=== PATIENT | male | born 1950 | race Caucasian/White ===

== ENCOUNTER 2016-08-23 10:20 | Outpatient (RCR) | payer MEDICARE, OTHER ==
[2016-08-16 11:15] LABS: BASOPHILS % (AUTO) 0 % (0-10); EOSINOPHILS # (AUTO) 0.1 10^3/uL (0.0-0.3); EOSINOPHILS % (AUTO) 2 % (0-10); LYMPHOCYTES % (AUTO) 34 % (12-44); MEAN CORPUSCULAR HEMOGLOBIN 29 PG (25-34); MEAN CORPUSCULAR HGB CONC 35 G/DL (32-36); MEAN CORPUSCULAR VOLUME 83 FL (80-99); MEAN PLATELET VOLUME 10.8 FL (7.4-10.4); MONOCYTES # (AUTO) 0.5 X 10^3 (0.0-1.0); MONOCYTES % (AUTO) 9 % (0-12); NEUTROPHILS # (AUTO) 3.1 X 10^3 (1.8-7.8); NEUTROPHILS % (AUTO) 55 % (42-75); PLATELET COUNT 173 10^3/uL (130-400); RED BLOOD COUNT 4.59 10^6/uL (4.35-5.85); RED CELL DISTRIBUTION WIDTH 13.5 % (10.0-14.5); WHITE BLOOD COUNT 5.7 10^3/uL (4.3-11.0)
[2016-08-16 12:01] LABS: ALANINE AMINOTRANSFERASE 31 U/L (0-55); ALBUMIN 4.2 G/DL (3.2-4.5); ANION GAP 8 MMOL/L (5-14); ASPARTATE AMINO TRANSFERASE 20 U/L (5-34); BILIRUBIN,TOTAL 0.9 MG/DL (0.1-1.0); BLOOD UREA NITROGEN 14 MG/DL (7-18); BUN/CREATININE RATIO 13; CALCIUM 9.3 MG/DL (8.5-10.1); CARBON DIOXIDE 27 MMOL/L (21-32); CHLORIDE 105 MMOL/L (98-107); CREATININE SERUM 1.05 MG/DL (0.60-1.30); GFR ESTIMATED > 60; GLUCOSE 137 MG/DL (70-105); POTASSIUM 4.5 MMOL/L (3.6-5.0); SODIUM 140 MMOL/L (135-145); TOTAL PROTEIN 6.5 G/DL (6.4-8.2)
[~2016-08-23 10:20] MED LIST: ACET1TAB12; AMLO10TA82 PO; AMLO5TAB2; ASPI-892; ATOR40TA70 PO; CIPR500T78 PO; CLON0.3T PO; CLON1PAT22 TD; GLIP5TAB13 PO; HCT25T; HYDR-3714 PO; HYDR1TAB PO; KCL10CCR PO; LISI10TA; LISI40TA PO; Lisinopril; MAGN100T PO; METF-380 PO; METF750T2; METO-274 PO; METO25TA PO; MULT-608; MULT1CAP27 PO; NF-METANX PO; OMEG-12 PO; OMEP20TA7 PO; SIMV20TA3; VIT400TA2 PO; VITA1CAP59 PO; klor con
== END 2016-11-14 | disposition home or self-care (01) ==
LOC: ONC 10:20
PROVIDERS: ATTEND Internal Medicine Hematology & Oncology
DX: Z08 Encounter for follow-up examination after completed treatment for malignant neoplasm (principal); Z85.038 Personal history of other malignant neoplasm of large intestine
CPT/HCPCS: 36415; 80053; 82378; 85025; 99213

== ENCOUNTER → 2017-01-08 | Outpatient (CLI) | payer MEDICARE, OTHER ==
--- NOTE | 2017-01-09 09:15 | ECHOCARDIOGRAPHY REPORT ---
PROCEDURE PHYSICIAN: DONTA HICKS DATE OF PROCEDURE: 01/08/2017 TWO DIMENSIONAL ECHOCARDIOGRAM REPORT PRIMARY PHYSICIAN: OTHER PHYSICIAN: REFERRING PHYSICIAN: ORDERING PHYSICIAN: INDICATION FOR THE PROCEDURE: MEASUREMENTS DERIVED VALUES LV DIAMETER (LAX) NORMALS NORMALS Diastolic 5 (3.6-5.2) Eject. Fract. (60%+/-6%) Systolic (2.3-3.9) Diastolic Vol. % Shortening (0.22-0.42) Systolic Vol. Aortic Root 3.4 IVS THICKNESS Diastolic 1.2 (0.6-1.1) LVPW THICKNESS Diastolic 1.2 (0.6-1.1) LA DIAMETER Systolic 4.2 (2.1-3.7) DESCRIPTION: Two dimensional echocardiography shows normal global left ventricular systolic function without regional wall motion abnormality. Aortic, mitral and tricuspid valve leaflets show good leaflet excursion. There is minimal amount of pericardial fluid or epicardial fat. This does not appear to be of hemodynamic significance. Doppler imaging did not show significant valvular regurgitation or stenosis. Pulmonary artery systolic pressure is estimated to be within normal limits. There is no evidence of significant intracardiac shunt on this transthoracic echocardiographic study. Inferior vena cava does not appear to be dilated. CONCLUSION: 1. Normal global left ventricular systolic function with ejection fraction of approximately 60%. 2. No evidence of significant valvular regurgitation or stenosis. 3. Pulmonary artery systolic function is estimated to be within normal limits. 4. Mild enlargement of the left atrium. 5. Borderline concentric left ventricular hypertrophy. Job ID: [id number] Dictated Date: 01/09/2017 08:21:22 [employer]er Date: 01/09/2017 08:55:09 / hakan
== END ==
LOC: CARD 07:31
PROVIDERS: ATTEND Internal Medicine Cardiovascular Disease
DX: I25.10 Atherosclerotic heart disease of native coronary artery without angina pectoris (principal); I65.23 Occlusion and stenosis of bilateral carotid arteries; E11.9 Type 2 diabetes mellitus without complications; I10 Essential (primary) hypertension; G47.33 Obstructive sleep apnea (adult) (pediatric); Z87.891 Personal history of nicotine dependence
CPT/HCPCS: 93306

== ENCOUNTER → 2017-01-11 | Outpatient (CLI) | payer MEDICARE, OTHER ==
[~2017-01-11] MED LIST changes: +CATHETER FLUSH 10 ML SYR IV PRN; +REGADENOSON 0.4 MG/5 ML SYR (LEXISCAN) IV ONE
[2017-01-11 09:26] VITALS: BP 212/86
[2017-01-11 09:27] VITALS: BP 191/77
--- NOTE | 2017-01-12 08:03 | STRESS TEST ---
PROCEDURE PHYSICIAN: DONTA KIM RESTING AND POST REGADENOSON TECHNETIUM 99M TETROFOSMIN SPECT CT IMAGING: DATE OF PROCEDURE: 01/11/2017 ORDERING PHYSICIAN: Dr. Kmi PRIMARY PHYSICIAN: Dr. Kaur CLINICAL DIAGNOSIS: Coronary artery disease, hypertension, history of tobacco use. Baseline images were carried out and after injection of 10.83 mCi of 99M tetrofosmin. This was followed by 29 mCi technetium 99 tetrofosmin after 0.4 mg of regadenoson for stress imaging. The electrocardiogram showed sinus rhythm at baseline and the electrocardiogram did not change significantly with the regadenoson infusion. The patient tolerated the procedure well. Review of images at rest and following stress, does not indicate any significant perfusion defects consistent with any significant myocardial ischemia or infarction. Gated images show normal global left ventricular systolic function with normal regional wall motion. Left ventricular ejection fraction is calculated to be 60%. Left ventricular end-diastolic volume is 78 mL. TID is absent (1.05). CONCLUSION: 1. No evidence of any significant myocardial ischemia or infarction on this study. 2. Normal regional wall motion. 3. Normal global left ventricular systolic function with a calculated ejection fraction of 60% Job ID: [id number] Dictated Date: 01/11/2017 17:45:32 [employer] Sales Network Engineer Date: 01/12/2017 07:58:12 / eladio
== END ==
LOC: CARD 07:19
PROVIDERS: ATTEND Internal Medicine Cardiovascular Disease
DX: I25.10 Atherosclerotic heart disease of native coronary artery without angina pectoris (principal); I65.23 Occlusion and stenosis of bilateral carotid arteries; E11.9 Type 2 diabetes mellitus without complications; I10 Essential (primary) hypertension; G47.33 Obstructive sleep apnea (adult) (pediatric); Z87.891 Personal history of nicotine dependence
CPT/HCPCS: 78452; 93017

== ENCOUNTER 2017-09-12 07:55 | Outpatient (RCR) | payer MEDICARE, OTHER ==
[2017-09-03 10:38] LABS: BASOPHILS % (AUTO) 0 % (0-10); EOSINOPHILS # (AUTO) 0.1 10^3/uL (0.0-0.3); EOSINOPHILS % (AUTO) 1 % (0-10); HEMATOCRIT 38 % (40-54); HEMOGLOBIN 13.3 G/DL (13.3-17.7); LYMPHOCYTES # (AUTO) 1.6 X 10^3 (1.0-4.0); LYMPHOCYTES % (AUTO) 26 % (12-44); MEAN CORPUSCULAR HEMOGLOBIN 30 PG (25-34); MEAN CORPUSCULAR HGB CONC 36 G/DL (32-36); MEAN CORPUSCULAR VOLUME 85 FL (80-99); MEAN PLATELET VOLUME 10.4 FL (7.4-10.4); MONOCYTES # (AUTO) 0.5 X 10^3 (0.0-1.0); MONOCYTES % (AUTO) 8 % (0-12); NEUTROPHILS % (AUTO) 65 % (42-75); PLATELET COUNT 175 10^3/uL (130-400); RED BLOOD COUNT 4.41 10^6/uL (4.35-5.85); RED CELL DISTRIBUTION WIDTH 12.9 % (10.0-14.5); WHITE BLOOD COUNT 6.1 10^3/uL (4.3-11.0)
[2017-09-03 10:58] LABS: ALANINE AMINOTRANSFERASE 22 U/L (0-55); ALBUMIN 4.2 GM/DL (3.2-4.5); ALKALINE PHOSPHATASE 55 U/L (40-136); BILIRUBIN,TOTAL 0.9 MG/DL (0.1-1.0); BUN/CREATININE RATIO 14; CALCIUM 9.3 MG/DL (8.5-10.1); CARBON DIOXIDE 25 MMOL/L (21-32); CHLORIDE 102 MMOL/L (98-107); GFR ESTIMATED > 60; GLUCOSE 140 MG/DL (70-105); POTASSIUM 4.5 MMOL/L (3.6-5.0); SODIUM 137 MMOL/L (135-145); TOTAL PROTEIN 6.9 GM/DL (6.4-8.2)
[~2017-09-12 07:55] MED LIST changes: -CATHETER FLUSH 10 ML SYR IV PRN; -METO-274 PO; +METO-395 PO; -REGADENOSON 0.4 MG/5 ML SYR (LEXISCAN) IV ONE
== END 2017-12-02 | disposition home or self-care (01) ==
LOC: ONC 07:55
PROVIDERS: ATTEND Internal Medicine Hematology & Oncology
DX: Z08 Encounter for follow-up examination after completed treatment for malignant neoplasm (principal); Z85.038 Personal history of other malignant neoplasm of large intestine
CPT/HCPCS: 36415; 80053; 82378; 85025; 99213

== ENCOUNTER 2018-06-26 11:15 | Outpatient (CLI) | payer MEDICARE, OTHER ==
[~2018-06-26] VITALS: Ht 165.1 cm; Wt 76.7 kg
[~2018-06-26 11:15] MED LIST changes: +CHOL378P3 PO; +DOXA4TAB2 PO; +METF-397 PO
== END 2018-06-26 12:03 | disposition home or self-care (01) ==
LOC: PREOP 11:15
PROVIDERS: ATTEND Surgery
DX: Z01.818 Encounter for other preprocedural examination (principal)

== ENCOUNTER 2018-07-01 09:31 | Day surgery (SDC) | payer MEDICARE, OTHER ==
[~2018-07-01] VITALS: Ht 165.1 cm; Wt 76.7 kg
--- OUTSIDE RECORDS SUMMARY | 2018-07-01 09:37 | XMS REPORT | CCD ---
Author Author [facility] Organization [facility] Address [address] [place] [address] Phone Care Team Providers Care Director Stage Name Role Phone PP Unavailable CCM Unavailable Summary Purpose Interface Exchange Insurance Providers Payer name Policy type / Coverage type Covered democrat ID Effective Begin Date Effective End Date WPS Medicare Part B Medicare Part B [id number] 2015 Unknown [employer] Medicare Part B [id number] Unknown Family history Sister Diagnosis Age At Onset Hypertension Unknown Sister Diagnosis Age At Onset Colon cancer Unknown Side Diagnosis Age At Onset No Family Disease Entered N/A Father Diagnosis Age At Onset Diabetes mellitus Type 2 Unknown Hypertension Unknown Myocardial infarction Unknown Mother Diagnosis Age At Onset Hypertension Unknown Hyperlipidemia Unknown Side Diagnosis Age At Onset Myocardial infarction Unknown Social History Social History Element Codes Description Effective Dates Marital status Unknown 08/27/2011 Living arrangements Unknown House 08/27/2011 Employment Unknown Currently employed works for [employer] 08/27/2011 Allergies, Adverse Reactions, Alerts Allergies, Adverse Reactions, Alerts data not found Past Medical History Illness Codes Condition Status Onset Date Resolved Date Essential (primary) hypertension ICD-9: 401.1 ICD-10: I10 Active 07/02/2016 Unknown Mixed hyperlipidemia ICD-9: 272.4 ICD-10: E78.2 Active 06/26/2016 Unknown Type 2 diabetes mellitus with hyperglycemia ICD-9: 250.02 ICD-10: E11.65 Active 01/01/2017 Unknown Type 2 diabetes mellitus without complications ICD-9: 250.00 ICD-10: E11.9 Active 07/23/2014 Unknown Mixed hyperlipidemia ICD-9: 272.2 ICD-10: E78.2 Active 07/02/2016 Unknown Encounter for general adult medical examination with abnormal findings ICD-9: V70.0 ICD-10: Z00.01 Active 01/03/2017 Unknown Encounter for immunization ICD-9: V04.81 ICD-10: Z23 Active 08/07/2013 Unknown Essential (primary) hypertension ICD-9: 401.9 ICD-10: I10 Active 06/26/2016 Unknown Encounter for general adult medical examination without abnormal findings ICD-9: V70.0 ICD-10: Z00.00 Active 11/16/2015 Unknown DIABETES TYPE II ICD-9 : 250.00 Active 07/23/2014 Unknown ESSENTIAL HYPERTENSION ICD-9: 401.9 Active 07/23/2014 Unknown HYPERLIPIDEMIA ICD-9: 272.4 Active 03/24/2014 Unknown Fatigue ICD-9: 780.79 Active 11/25/2013 Unknown VACCIN FOR INFLUENZA ICD-9: V04.81 Active 08/07/2013 Unknown Hyperlipidemia Unknown Active 10/22/2012 Unknown History of colon cancer ICD-9: V10.05 Active 01/10/2012 Unknown Diabetes Unknown Active 09/13/2011 Unknown Dry skin ICD-9: 782.9 Active 09/13/2011 Unknown Hypertension Unknown Active 08/09/2011 Unknown Actinic keratosis ICD- 9: 702.0 Active 08/09/2011 Unknown Seborrheic keratosis, inflamed ICD-9: 702.11 Active 08/09/2011 Unknown Problems Condition Codes Effective Dates Condition Status Essential (primary) hypertension ICD-9: 401.1 ICD-10: I10 07/02/2016 Active Mixed hyperlipidemia ICD-9: 272.4 ICD-10: E78.2 06/26/2016 Active Type 2 diabetes mellitus with hyperglycemia ICD-9: 250.02 ICD-10: E11.65 01/01/2017 Active Type 2 diabetes mellitus without complications ICD-9: 250.00 ICD-10: E11.9 07/23/2014 Active Mixed hyperlipidemia ICD-9: 272.2 ICD-10: E78.2 07/02/2016 Active Encounter for general adult medical examination with abnormal findings ICD-9: V70.0 ICD-10: Z00.01 01/03/2017 Active Encounter for immunization ICD-9: V04.81 ICD-10: Z23 08/07/2013 Active Essential (primary) hypertension ICD-9: 401.9 ICD-10: I10 06/26/2016 Active Encounter for general adult medical examination without abnormal findings ICD-9: V70.0 ICD-10: Z00.00 11/16/2015 Active DIABETES TYPE II ICD-9 : 250.00 07/23/2014 Active ESSENTIAL HYPERTENSION ICD-9: 401.9 07/23/2014 Active HYPERLIPIDEMIA ICD-9: 272.4 03/24/2014 Active Fatigue ICD-9: 780.79 11/25/2013 Active VACCIN FOR INFLUENZA ICD-9: V04.81 08/07/2013 Active Hyperlipidemia Unknown 10/22/2012 Active History of colon cancer ICD-9: V10.05 01/10/2012 Active Diabetes Unknown 09/13/2011 Active Dry skin ICD-9: 782.9 09/13/2011 Active Hypertension Unknown 08/09/2011 Active Actinic keratosis ICD- 9: 702.0 08/09/2011 Active Seborrheic keratosis, inflamed ICD-9: 702.11 08/09/2011 Active Medications Medication Codes Instructions Start Date Stop Date Status Fill Instructions atorvastatin 40 mg tablet RxNorm: 894969 TAKE ONE TABLET BY MOUTH ONCE DAILY 11/07/2017 No Stop Date Active amlodipine 10 mg tablet RxNorm: 921822 TAKE ONE TABLET BY MOUTH ONCE DAILY 10/09/2017 No Stop Date Active clonidine HCl 0.3 mg tablet RxNorm: 939026 TAKE ONE TABLET BY MOUTH TWICE DAILY 08/28/2017 No Stop Date Active glipizide 5 mg tablet RxNorm: 734008 TAKE ONE TABLET BY MOUTH TWICE DAILY 08/28/2017 No Stop Date Active lisinopril 40 mg tablet RxNorm: 153847 TAKE ONE TABLET BY MOUTH ONCE DAILY 08/08/2017 08/02/2018 Active atorvastatin 40 mg tablet RxNorm: 201958 TAKE ONE TABLET BY MOUTH ONCE DAILY 07/09/2017 11/05/2017 Inactive amlodipine 10 mg tablet RxNorm: 864048 TAKE ONE TABLET BY MOUTH ONCE DAILY 06/07/2017 10/04/2017 Inactive metformin 1,000 mg tablet RxNorm: 995572 TAKE ONE TABLET BY MOUTH TWICE DAILY 05/17/2017 11/12/2017 Active clonidine HCl 0.3 mg tablet RxNorm: 509014 TAKE ONE TABLET BY MOUTH TWICE DAILY 04/25/2017 08/22/2017 Inactive glipizide 5 mg tablet RxNorm: 999502 TAKE ONE TABLET BY MOUTH TWICE DAILY 04/25/2017 08/22/2017 Inactive amlodipine 10 mg tablet RxNorm: 937509 TAKE ONE TABLET BY MOUTH ONCE DAILY 04/09/2017 06/06/2017 Inactive atorvastatin 40 mg tablet RxNorm: 706967 TAKE ONE TABLET BY MOUTH ONCE DAILY 03/08/2017 07/05/2017 Inactive clonidine HCl 0.3 mg tablet RxNorm: 566521 TAKE ONE TABLET BY MOUTH TWICE DAILY 12/18/2016 04/16/2017 Inactive glipizide 5 mg tablet RxNorm: 870641 TAKE ONE TABLET BY MOUTH TWICE DAILY 12/18/2016 04/16/2017 Inactive metformin 1,000 mg tablet RxNorm: 504764 TAKE ONE TABLET BY MOUTH TWICE DAILY 11/13/2016 05/11/2017 Inactive amlodipine 10 mg tablet RxNorm: 575548 TAKE ONE TABLET BY MOUTH ONCE DAILY 11/08/2016 04/06/2017 Inactive atorvastatin 40 mg tablet RxNorm: 422930 TAKE ONE TABLET BY MOUTH ONCE DAILY 09/11/2016 03/07/2017 Inactive lisinopril 40 mg tablet RxNorm: 258299 Tablet(s) PO TAKE ONE TABLET BY MOUTH EVERY DAY 08/08/2016 08/02/2017 Inactive amlodipine 10 mg tablet RxNorm: 783383 Tablet(s) TAKE ONE TABLET BY MOUTH EVERY DAY 05/09/2016 11/04/2016 Inactive clonidine HCl 0.3 mg tablet RxNorm: 699288 Tablet(s) TAKE ONE TABLET BY MOUTH TWICE DAILY 04/19/2016 04/18/2016 Inactive clonidine HCl 0.3 mg tablet RxNorm: 819267 Tablet(s) TAKE ONE TABLET BY MOUTH TWICE DAILY 04/19/2016 08/16/2016 Inactive atorvastatin 40 mg tablet RxNorm: 964713 Tablet(s) TAKE ONE TABLET BY MOUTH ONCE DAILY 03/09/2016 09/04/2016 Inactive lisinopril 40 mg tablet RxNorm: 898336 Tablet(s) PO TAKE ONE TABLET BY MOUTH EVERY DAY 02/28/2016 08/07/2016 Inactive [SAVINGS FOR UNINSURED PATIENTS -- BIN: [id number], PCN: [id number], Group: [id number], ID# [id number], Process claim through [employer] , for questions: . THIS IS NOT INSURANCE.] lisinopril 40 mg tablet RxNorm: 728696 TAKE ONE TABLET BY MOUTH ONCE DAILY 02/07/2016 08/04/2016 Inactive glipizide 5 mg tablet RxNorm: 301575 Tablet(s) TAKE ONE TABLET BY MOUTH TWICE A DAY 01/26/2016 11/20/2016 Inactive atorvastatin 40 mg tablet RxNorm: 111682 Tablet(s) TAKE ONE TABLET BY MOUTH ONCE DAILY 12/07/2015 03/05/2016 Inactive clonidine HCl 0.3 mg tablet RxNorm: 858481 TAKE ONE TABLET BY MOUTH TWICE DAILY 12/06/2015 04/03/2016 Inactive metformin 1,000 mg tablet RxNorm: 474462 Tablet(s) TAKE ONE TABLET BY MOUTH TWICE A DAY 10/20/2015 10/13/2016 Inactive atorvastatin 40 mg tablet RxNorm: 066018 TAKE ONE TABLET BY MOUTH ONCE DAILY 09/03/2015 12/01/2015 Inactive metoprolol succinate ER 25 mg tablet,extended release 24 hr RxNorm: 216215 1 Tablet(s) PO daily in addition to the 50mg pill one time daily 08/19/2015 07/02/2016 Inactive metoprolol succinate ER 50 mg tablet,extended release 24 hr RxNorm: 517168 1 Tablet(s) PO daily in addition to the 25mg pill for a total of 75mg daily. 08/19/2015 07/02/2016 Inactive lisinopril 40 mg tablet RxNorm: 114131 TAKE ONE TABLET BY MOUTH ONCE DAILY 08/06/2015 02/01/2016 Inactive clonidine HCl 0.3 mg tablet RxNorm: 151225 1 Tablet(s) PO BID 08/04/2015 12/01/2015 Inactive DC clonidine patch clonidine HCl 0.3 mg tablet RxNorm: 163884 1 Tablet(s) PO BID 08/04/2015 08/03/2015 Inactive clonidine HCl 0.3 mg tablet RxNorm: 387315 1 Tablet(s) PO BID 08/04/2015 08/03/2015 Inactive amlodipine 10 mg tablet RxNorm: 610059 TAKE ONE TABLET BY MOUTH EVERY DAY 07/06/2015 04/30/2016 Inactive glipizide 5 mg tablet RxNorm: 609819 TAKE ONE TABLET BY MOUTH TWICE A DAY 04/02/2015 01/25/2016 Inactive atorvastatin 40 mg tablet RxNorm: 711691 TAKE ONE TABLET BY MOUTH EVERY DAY 02/25/2015 05/03/2015 Inactive metformin 1,000 mg tablet RxNorm: 368137 TAKE ONE TABLET BY MOUTH TWICE A DAY 01/19/2015 10/19/2015 Inactive clonidine 0.3 mg/24 hr weekly transdermal patch RxNorm: 213344 APPLY 1 PATCH EVERY 5 DAYS 10/12/2014 08/03/2015 Inactive lisinopril 40 mg tablet RxNorm: 609161 Tablet(s) PO TAKE ONE TABLET BY MOUTH EVERY DAY 10/05/2014 10/04/2014 Inactive [SAVINGS FOR UNINSURED PATIENTS -- BIN: [id number], PCN: [id number], Group: [id number], ID# [id number], Process claim through [employer] , for questions: . THIS IS NOT INSURANCE.] lisinopril 40 mg tablet RxNorm: 045723 TAKE ONE TABLET BY MOUTH EVERY DAY 10/05/2014 08/05/2015 Inactive atorvastatin 40 mg tablet RxNorm: 484871 TAKE ONE TABLET BY MOUTH EVERY DAY 08/28/2014 10/26/2014 Inactive amlodipine 10 mg tablet RxNorm: 818292 TAKE ONE TABLET BY MOUTH EVERY DAY 07/27/2014 06/21/2015 Inactive clonidine 0.3 mg/24 hr weekly transdermal patch RxNorm: 716812 1 q 5 days TD APPLY 1 PATCH EVERY 5 DAYS 05/27/201407/2014 Inactive clonidine 0.3 mg/24 hr weekly transdermal patch RxNorm: 445307 1 q 5 days TD APPLY 1 PATCH EVERY 5 DAYS 05/27/201409/2014 Inactive glipizide 5 mg tablet RxNorm: 972393 TAKE ONE TABLET BY MOUTH TWICE A DAY 04/23/2014 03/18/2015 Inactive clonidine 0.3 mg/24 hr weekly transdermal patch RxNorm: 764700 patch weekly TD APPLY 1 PATCH EVERY 5 DAYS 02/19/201409/2014 Inactive metformin 1,000 mg tablet RxNorm: 494173 Tablet(s) PO TAKE ONE TABLET BY MOUTH TWICE A DAY 01/09/2014 01/18/2015 Inactive atorvastatin 40 mg tablet RxNorm: 503499 Tablet(s) PO TAKE ONE TABLET BY MOUTH EVERY DAY 11/13/2013 08/27/2014 Inactive lisinopril 40 mg tablet RxNorm: 558342 Tablet(s) PO TAKE ONE TABLET BY MOUTH EVERY DAY 09/15/2013 10/04/2014 Inactive lisinopril 40 mg tablet RxNorm: 921526 Tablet(s) PO TAKE ONE TABLET BY MOUTH EVERY DAY 09/15/2013 09/14/2013 Inactive clonidine 0.3 mg/24 hr weekly transdermal patch RxNorm: 809284 patch weekly TD APPLY 1 PATCH EVERY 5 DAYS 09/08/201304/2014 Inactive amlodipine 10 mg tablet RxNorm: 711879 Tablet(s) PO TAKE ONE TABLET BY MOUTH EVERY DAY 07/18/2013 07/26/2014 Inactive glipizide 5 mg tablet RxNorm: 996408 Tablet(s) PO TAKE ONE TABLET BY MOUTH TWICE A DAY 04/07/2013 04/22/2014 Inactive metformin 1,000 mg tablet RxNorm: 501878 Tablet(s) PO TAKE ONE TABLET BY MOUTH TWICE A DAY 03/24/2013 No Stop Date Active metformin 1,000 mg tablet RxNorm: 699873 Tablet(s) PO TAKE ONE TABLET BY MOUTH TWICE A DAY 03/24/2013 01/08/2014 Inactive clonidine 0.3 mg/24 hr weekly transdermal patch RxNorm: 642201 Patch Weekly TD APPLY 1 PATCH WEEKLY 03/10/20132012 Inactive clonidine 0.3 mg/24 hr Weekly Transderm Patch RxNorm: 442075 1 TD q5days change patch every 5 days. 01/21/2013 07/19/2013 Inactive atorvastatin 40 mg tablet RxNorm: 204568 1 Tablet(s) PO daily 10/22/2012 10/16/2013 Inactive metoprolol succinate ER 25 mg tablet,extended release 24 hr RxNorm: 216452 1 Tablet(s) PO BID 09/10/2012 10/04/2013 Inactive multivitamin tablet RxNorm: 1 Tablet(s) PO daily 09/09/2012 No Stop Date Active clonidine 0.3 mg/24 hr Weekly Transderm Patch RxNorm: 489249 1 TD weekly 09/09/2012 09/08/2012 Inactive clonidine 0.3 mg/24 hr Weekly Transderm Patch RxNorm: 594015 1 TD weekly 09/09/2012 01/20/2013 Inactive lisinopril 40 mg tablet RxNorm: 005398 1 Tablet(s) PO daily 09/14/2013 Inactive clonidine 0.2 mg/24 hr Weekly Transderm Patch RxNorm: 214711 1 Patch TD weekly 09/04/2012 09/08/2012 Inactive clonidine 0.2 mg/24 hr Weekly Transderm Patch RxNorm: 620655 1 TD QW 08/20/2012 08/27/2012 Inactive apply q week clonidine 0.2 mg/24 hr Weekly Transderm Patch RxNorm: 969114 1 TD QW 08/20/2012 08/19/2012 Inactive apply q week metoprolol succinate ER 25 mg tablet,extended release 24 hr RxNorm: 634729 1 Tablet(s) PO BID 08/12/2012 09/09/2012 Inactive Metanx 3 mg-35 mg-2 mg tablet RxNorm: Tablet(s) PO 08/04/2012 02/27/2016 Inactive TAKE ONE TABLET BY MOUTH TWICE A DAY metoprolol succinate ER 25 mg tablet,extended release 24 hr RxNorm: 625296 1/2 Tablet(s) PO BID 07/23/2012 08/11/2012 Inactive amlodipine 10 mg tablet RxNorm: 499268 1 Tablet(s) PO daily 12/201107/17/2013 Inactive metoprolol succinate ER 25 mg tablet,extended release 24 hr RxNorm: 300115 1/2 Tablet(s) PO daily 06/12/2012 07/22/2012 Inactive glipizide 5 mg tablet RxNorm: 691599 1 Tablet(s) PO BID 201104/06/2013 Inactive metformin 1,000 mg tablet RxNorm: 876274 1 Tablet(s) PO BID 01/23/2013 Inactive amlodipine 10 mg tablet RxNorm: 677771 1 Tablet(s) PO daily 09/201206/21/2012 Inactive Metanx 3 mg-35 mg-2 mg tablet RxNorm: 1 Tablet(s) PO BID 12/2406/21/2012 Inactive simvastatin 20 mg tablet RxNorm: 392212 1 Tablet(s) PO daily 10/22/2012 Inactive hydrochlorothiazide 25 mg Tab RxNorm: 916750 1 Tablet(s) PO daily 10/02/2011 09/03/2012 Inactive lisinopril 40 mg tablet RxNorm: 756726 1 Tablet(s) PO daily 03/201109/03/2012 Inactive lisinopril 40 mg Tab RxNorm: 724997 1 Tablet(s) PO daily 201009/18/2011 Inactive glipizide 5 mg Tab RxNorm: 744735 1 Tablet(s) PO BID 201001/28/2012 Inactive Norvasc 10 mg Tab RxNorm: 533408 1 Tablet(s) PO daily 201007/23/2012 Inactive c pap RxNorm: 1 PO QPM No Start Date Active B Complex 1 Tab RxNorm : 1 Tablet(s) PO daily No Start Date Active aspirin 81 mg Tab, Delayed Release RxNorm: 701349 1 Tablet(s) PO daily No Start Date Active metoprolol succinate ER 100 mg tablet,extended release 24 hr RxNorm: 015520 1 Tablet(s) PO daily No Start Date Active multivitamin tablet RxNorm: Oral No Start Date 09/08/2012 Inactive hydrochlorothiazide 25 mg Tab RxNorm: 035036 1 Tablet(s) PO daily No Start Date 10/01/2011 Inactive Metanx 3 mg-35 mg-2 mg Tab RxNorm: 1 PO BID No Start Date 12/24/2011 Inactive Metanx 3 mg-35 mg-2 mg tablet RxNorm: 1 Tablet(s) PO daily No Start Date 02/27/2016 Inactive clonidine 0.2 mg/24 hr Weekly Transderm Patch RxNorm: 995892 1 TD weekly No Start Date 09/03/2012 Inactive Klor-Con 10 10 mEq Tab RxNorm: 763730 1 Tablet(s) PO daily No Start Date 07/02/2016 Inactive metoprolol succinate ER 25 mg tablet,extended release 24 hr RxNorm: 370488 1/2 Tablet(s) PO daily No Start Date 2013 Inactive metoprolol succinate ER 25 mg tablet,extended release 24 hr RxNorm: 664030 2 q am 1 at hs Tablet(s) PO daily No Start Date 08/18/2015 Inactive magnesium 250 mg Tab RxNorm: 1 Tablet(s) PO BID No Start Date 07/02/2016 Inactive amlodipine 10 mg Tab RxNorm: 792732 1 Tablet(s) PO daily No Start Date 12/24/2011 Inactive lisinopril 20 mg Tab RxNorm: 554690 1 Tablet(s) PO daily No Start Date 07/23/2012 Inactive metformin 1,000 mg Tab RxNorm: 820974 1 Tablet(s) PO BID No Start Date 01/29/2012 Inactive simvastatin 20 mg Tab RxNorm: 910989 1 Tablet(s) PO daily No Start Date 10/18/2011 Inactive Medication Administered No Medication Administered data Immunizations Vaccine Codes Date Status Influenza CVX: 141 07/03/2016 completed Influenza CVX: 141 08/07/2013 completed PPD Unknown 06/18/2013 completed Assessments Condition Codes Effective Dates Essential (primary) hypertension ICD-10: I10 ICD-9: 401.1 10/24/2017 Mixed hyperlipidemia ICD-10: E78.2 ICD-9: 272.4 10/24/2017 Type 2 diabetes mellitus with hyperglycemia ICD-10: E11.65 ICD-9: 250.02 10/24/2017 Type 2 diabetes mellitus without complications ICD-10: E11.9 ICD-9: 250.00 10/16/2017 Mixed hyperlipidemia ICD-10: E78.2 ICD-9: 272.2 05/02/2017 Encounter for general adult medical examination with abnormal findings ICD-10: Z00.01 ICD-9: V70.0 01/03/2017 Encounter for immunization ICD-10: Z23 ICD-9: V04.81 07/03/2016 Essential (primary) hypertension ICD-10: I10 ICD-9: 401.9 06/27/2016 Encounter for general adult medical examination without abnormal findings ICD-10: Z00.00 ICD-9: V70.0 11/17/2015 HYPERLIPIDEMIA ICD-9: 272.4 02/18/2015 DIABETES TYPE II ICD-9: 250.00 2014 ESSENTIAL HYPERTENSION ICD-9: 401.9 02/18 Fatigue ICD-9: 780.79 11/25/2013 VACCIN FOR INFLUENZA ICD-9: V04.81 2012 History of colon cancer ICD-9: V10.05 Dry skin ICD-9: 782.9 09/13/2011 Seborrheic keratosis, inflamed ICD-9: 702.11 08/09/2011 Actinic keratosis ICD-9: 702.0 2010 Reason For Visit Reason For Visit Effective Dates Notes diabetes mellitus 10/24/2017 diabetes mellitus 05/02/2017 Annual Medicare Wellness Exam 01/03/2017 diabetes mellitus 01/01/2017 diabetes mellitus 07/03/2016 diabetes mellitus 02/28/2016 Annual Medicare Wellness Exam 11/17/2015 diabetes mellitus 08/19/2015 diabetes mellitus 02/18/2015 diabetes mellitus 07/23/2014 diabetes mellitus 03/24/2014 diabetes mellitus 11/25/2013 vaccination against influenza 08/07/2013 diabetes mellitus 07/22/2013 diabetes mellitus 04/22/2013 diabetes mellitus 01/21/2013 hypertension 10/22/2012 hypertension 09/12/2012 hypertension 07/23/2012 diabetes mellitus 06/12/2012 diabetes mellitus 01/10/2012 hypertension 09/13/2011 mole check 08/09/2011 Results Observation Observation Code Item Item Code Result Date Lipid Ord30 CHOL 161 mg/dL 10/17/2017 Lipid Ord30 HDL 47.0 mg/dl 10/17/2017 Lipid Ord30 TRIG 130 mg/dL 10/17/2017 Lipid Ord30 LDL 88 mg/dL 10/17/2017 Lipid Ord30 C/HDL 3.4 Ratio 10/17/2017 Tsh Ord6 hTSH II 2.92 uIU/mL 10/17/2017 %Hba1C Qqf477 % HbA1c 20480-1 6.9 % 10/17/2017 %Hba1C Rcd757 Gluc Ave 151 mg/dL 10/17/2017 Comp Metabolic Dfc336 NA 139 mEq/L 10/17/2017 Comp Metabolic Hsr723 K 4.4 mEq/L 10/17/2017 Comp Metabolic Jlb993 CL 100 mEq/L 10/17/2017 Comp Metabolic Mvh191 CO2 29.0 mEq/L 10/17/2017 Comp Metabolic Vsx803 ANION GAP 14 10/17/2017 Comp Metabolic Ozw493 GLUCOSE 154 mg/dL 10/17/2017 Comp Metabolic Tcw836 Creat 1.0 mg/dL 10/17/2017 Comp Metabolic Tcl417 eGFR 76 ml/min/1.73m2 10/17/2017 Comp Metabolic Sts088 BUN 17 mg/dL 10/17/2017 Comp Metabolic Pwp486 B/C Ratio 16.3 Ratio 10/17/2017 Comp Metabolic Ktk279 CALCIUM 9.6 mg/dL 10/17/2017 Comp Metabolic Yjh738 ALK PHOS 61 U/L 10/17/2017 Comp Metabolic Ocs793 AST(SGOT) 16 U/L 10/17/2017 Comp Metabolic Fqb745 ALT(SGPT) 20 U/L 10/17/2017 Comp Metabolic Nxb708 BILI T 1.0 mg/dL 10/17/2017 Comp Metabolic Gma279 ALBUMIN 4.6 g/dL 10/17/2017 Comp Metabolic Qnz605 TPRO 6.9 g/dL 10/17/2017 Comp Metabolic Vji931 GLOB 2.4 g/dL 10/17/2017 Comp Metabolic Wgp911 A/G Ratio 1.9 Ratio 10/17/2017 Comp Metabolic Yom112 Osmo 282 mOsmo 10/17/2017 Cbc With Differential Ord2 WBC 6.24 K/ul 10/17/2017 Cbc With Differential Ord2 RBC 4.71 M/ul 10/17/2017 Cbc With Differential Ord2 HGB 14.2 g/dl 10/17/2017 Cbc With Differential Ord2 Neut% 60.3 % 10/17/2017 Cbc With Differential Ord2 HCT 40.0 % 10/17/2017 Cbc With Differential Ord2 Lymph% 28.7 % 10/17/2017 Cbc With Differential Ord2 MCV 84.9 fl 10/17/2017 Cbc With Differential Ord2 [place]% 7.9 % 10/17/2017 Cbc With Differential Ord2 MCH 30.1 pg 10/17/2017 Cbc With Differential Ord2 Eos% 2.6 % 10/17/2017 Cbc With Differential Ord2 MCHC 35.5 pg 10/17/2017 Cbc With Differential Ord2 Baso% 0.5 % 10/17/2017 Cbc With Differential Ord2 PLT 177 K/ul 10/17/2017 Cbc With Differential Ord2 RDW 13.6 % 10/17/2017 Cbc With Differential Ord2 Neut ABS# 3.77 K/ul 10/17/2017 Cbc With Differential Ord2 Lymph ABS# 1.79 K/ul 10/17/2017 Cbc With Differential Ord2 [place] ABS# 0.5 K/ul 10/17/2017 Cbc With Differential Ord2 Eos ABS# 0.2 K/ul 10/17/2017 Cbc With Differential Ord2 Baso ABS# 0.0 K/ul 10/17/2017 Lipid Ord30 CHOL 155 mg/dL 04/25/2017 Lipid Ord30 HDL 45.0 mg/dl 04/25/2017 Lipid Ord30 TRIG 114 mg/dL 04/25/2017 Lipid Ord30 LDL 87 mg/dL 04/25/2017 Lipid Ord30 C/HDL 3.4 Ratio 04/25/2017 Tsh Ord6 hTSH II 1.90 uIU/mL 04/25/2017 %Hba1C Thq669 % HbA1c 54946-8 6.7 % 04/25/2017 %Hba1C Vyn832 Gluc Ave 146 mg/dL 04/25/2017 Comp Metabolic Bjv168 NA 141 mEq/L 04/25/2017 Comp Metabolic Qrs415 K 4.1 mEq/L 04/25/2017 Comp Metabolic Ilq138 CL 102 mEq/L 04/25/2017 Comp Metabolic Zaf085 CO2 30.0 mEq/L 04/25/2017 Comp Metabolic Jjj725 ANION GAP 13 04/25/2017 Comp Metabolic Pyh273 GLUCOSE 134 mg/dL 04/25/2017 Comp Metabolic Azp677 Creat 1.0 mg/dL 04/25/2017 Comp Metabolic Ttp342 eGFR 84 ml/min/1.73m2 04/25/2017 Comp Metabolic Bwj683 BUN 16 mg/dL 04/25/2017 Comp Metabolic Ura801 B/C Ratio 16.8 Ratio 04/25/2017 Comp Metabolic Phd359 CALCIUM 9.6 mg/dL 04/25/2017 Comp Metabolic Kov162 ALK PHOS 52 U/L 04/25/2017 Comp Metabolic Qxp344 AST(SGOT) 17 U/L 04/25/2017 Comp Metabolic Nli322 ALT(SGPT) 20 U/L 04/25/2017 Comp Metabolic Xgn070 BILI T 0.8 mg/dL 04/25/2017 Comp Metabolic Bmu599 ALBUMIN 4.6 g/dL 04/25/2017 Comp Metabolic Mzs341 TPRO 7.1 g/dL 04/25/2017 Comp Metabolic Fqc400 GLOB 2.5 g/dL 04/25/2017 Comp Metabolic Yuw205 A/G Ratio 1.9 Ratio 04/25/2017 Comp Metabolic Gwl607 Osmo 284 mOsmo 04/25/2017 Cbc With Differential Ord2 WBC 7.46 K/ul 04/25/2017 Cbc With Differential Ord2 RBC 4.94 M/ul 04/25/2017 Cbc With Differential Ord2 HGB 14.9 g/dl 04/25/2017 Cbc With Differential Ord2 HCT 42.6 % 04/25/2017 Cbc With Differential Ord2 Neut% 66.5 % 04/25/2017 Cbc With Differential Ord2 Lymph% 23.5 % 04/25/2017 Cbc With Differential Ord2 MCV 86.2 fl 04/25/2017 Cbc With Differential Ord2 [place]% 8.0 % 04/25/2017 Cbc With Differential Ord2 MCH 30.2 pg 04/25/2017 Cbc With Differential Ord2 Eos% 1.7 % 04/25/2017 Cbc With Differential Ord2 MCHC 35.0 pg 04/25/2017 Cbc With Differential Ord2 Baso% 0.3 % 04/25/2017 Cbc With Differential Ord2 PLT 195 K/ul 04/25/2017 Cbc With Differential Ord2 Neut ABS# 4.96 K/ul 04/25/2017 Cbc With Differential Ord2 RDW 14.0 % 04/25/2017 Cbc With Differential Ord2 Lymph ABS# 1.75 K/ul 04/25/2017 Cbc With Differential Ord2 [place] ABS# 0.6 K/ul 04/25/2017 Cbc With Differential Ord2 Eos ABS# 0.1 K/ul 04/25/2017 Cbc With Differential Ord2 Baso ABS# 0.0 K/ul 04/25/2017 Tsh Ord6 hTSH II 2.23 uIU/mL 12/25/2016 Lipid Ord30 CHOL 141 mg/dL 12/25/2016 Lipid Ord30 HDL 43.0 mg/dl 12/25/2016 Lipid Ord30 TRIG 87 mg/dL 12/25/2016 Lipid Ord30 LDL 81 mg/dL 12/25/2016 Lipid Ord30 C/HDL 3.3 Ratio 12/25/2016 Cbc With Differential Ord2 WBC 5.84 K/ul 12/25/2016 Cbc With Differential Ord2 RBC 4.60 M/ul 12/25/2016 Cbc With Differential Ord2 HGB 13.9 g/dl 12/25/2016 Cbc With Differential Ord2 HCT 40.1 % 12/25/2016 Cbc With Differential Ord2 Neut% 57.5 % 12/25/2016 Cbc With Differential Ord2 Lymph% 31.3 % 12/25/2016 Cbc With Differential Ord2 MCV 87.2 fl 12/25/2016 Cbc With Differential Ord2 [place]% 8.9 % 12/25/2016 Cbc With Differential Ord2 MCH 30.2 pg 12/25/2016 Cbc With Differential Ord2 MCHC 34.7 pg 12/25/2016 Cbc With Differential Ord2 Eos% 2.1 % 12/25/2016 Cbc With Differential Ord2 Baso% 0.2 % 12/25/2016 Cbc With Differential Ord2 PLT 182 K/ul 12/25/2016 Cbc With Differential Ord2 RDW 14.0 % 12/25/2016 Cbc With Differential Ord2 Neut ABS# 3.36 K/ul 12/25/2016 Cbc With Differential Ord2 Lymph ABS# 1.83 K/ul 12/25/2016 Cbc With Differential Ord2 [place] ABS# 0.5 K/ul 12/25/2016 Cbc With Differential Ord2 Eos ABS# 0.1 K/ul 12/25/2016 Cbc With Differential Ord2 Baso ABS# 0.0 K/ul 12/25/2016 %Hba1C Wui204 % HbA1c 18070-1 7.2 % 12/25/2016 %Hba1C Svg034 Gluc Ave 160 mg/dL 12/25/2016 Comp Metabolic Cok565 NA 138 mEq/L 12/25/2016 Comp Metabolic Zqv738 K 4.2 mEq/L 12/25/2016 Comp Metabolic Ixb747 CL 102 mEq/L 12/25/2016 Comp Metabolic Iox774 CO2 30.0 mEq/L 12/25/2016 Comp Metabolic Avm772 ANION GAP 10 12/25/2016 Comp Metabolic Jae239 GLUCOSE 170 mg/dL 12/25/2016 Comp Metabolic Nsf918 Creat 1.0 mg/dL 12/25/2016 Comp Metabolic Geh075 eGFR 82 ml/min/1.73m2 12/25/2016 Comp Metabolic Cnz294 BUN 14 mg/dL 12/25/2016 Comp Metabolic Xmc026 B/C Ratio 14.4 Ratio 12/25/2016 Comp Metabolic Rjb795 CALCIUM 9.5 mg/dL 12/25/2016 Comp Metabolic Vrh455 ALK PHOS 55 U/L 12/25/2016 Comp Metabolic Glw670 AST(SGOT) 13 U/L 12/25/2016 Comp Metabolic Jgp062 ALT(SGPT) 19 U/L 12/25/2016 Comp Metabolic Zxj676 BILI T 0.6 mg/dL 12/25/2016 Comp Metabolic Uvn159 ALBUMIN 4.4 g/dL 12/25/2016 Comp Metabolic Xap415 TPRO 6.6 g/dL 12/25/2016 Comp Metabolic Hbs470 GLOB 2.2 g/dL 12/25/2016 Comp Metabolic Huw786 A/G Ratio 2.0 Ratio 12/25/2016 Comp Metabolic Ggk330 Osmo 280 mOsmo 12/25/2016 Comp Metabolic Ymt548 NA 135 mEq/L 06/28/2016 Comp Metabolic Gom390 K 4.1 mEq/L 06/28/2016 Comp Metabolic Euo099 CL 100 mEq/L 06/28/2016 Comp Metabolic Roz716 CO2 29.0 mEq/L 06/28/2016 Comp Metabolic Jza491 ANION GAP 10 06/28/2016 Comp Metabolic Znc613 GLUCOSE 148 mg/dL 06/28/2016 Comp Metabolic Ehr946 Creat 0.9 mg/dL 06/28/2016 Comp Metabolic Cdc812 eGFR 88 ml/min/1.73m2 06/28/2016 Comp Metabolic Xfx001 BUN 14 mg/dL 06/28/2016 Comp Metabolic Fru667 B/C Ratio 15.2 Ratio 06/28/2016 Comp Metabolic Lfv694 CALCIUM 9.5 mg/dL 06/28/2016 Comp Metabolic Vnc728 ALK PHOS 51 U/L 06/28/2016 Comp Metabolic Epy890 AST(SGOT) 14 U/L 06/28/2016 Comp Metabolic Swt788 ALT(SGPT) 15 U/L 06/28/2016 Comp Metabolic Vwj604 BILI T 0.8 mg/dL 06/28/2016 Comp Metabolic Kuk156 ALBUMIN 4.3 g/dL 06/28/2016 Comp Metabolic Gyr616 TPRO 6.5 g/dL 06/28/2016 Comp Metabolic Vck286 GLOB 2.3 g/dL 06/28/2016 Comp Metabolic Tqz460 A/G Ratio 1.9 Ratio 06/28/2016 Comp Metabolic Vuw685 Osmo 273 mOsmo 06/28/2016 Tsh Ord6 hTSH II 1.82 uIU/mL 06/28/2016 %Hba1C Bxz389 % HbA1c 97563-4 6.5 % 06/28/2016 %Hba1C Nxw139 Gluc Ave 140 mg/dL 06/28/2016 Lipid Ord30 CHOL 147 mg/dL 06/28/2016 Lipid Ord30 HDL 41.0 mg/dl 06/28/2016 Lipid Ord30 TRIG 72 mg/dL 06/28/2016 Lipid Ord30 LDL 92 mg/dL 06/28/2016 Lipid Ord30 C/HDL 3.6 Ratio 06/28/2016 Cbc With Differential Ord2 WBC 6.13 K/ul 06/28/2016 Cbc With Differential Ord2 RBC 4.43 M/ul 06/28/2016 Cbc With Differential Ord2 HGB 13.3 g/dl 06/28/2016 Cbc With Differential Ord2 Neut% 59.2 % 06/28/2016 Cbc With Differential Ord2 HCT 38.0 % 06/28/2016 Cbc With Differential Ord2 MCV 85.8 fl 06/28/2016 Cbc With Differential Ord2 Lymph% 30.3 % 06/28/2016 Cbc With Differential Ord2 MCH 30.0 pg 06/28/2016 Cbc With Differential Ord2 [place]% 8.3 % 06/28/2016 Cbc With Differential Ord2 Eos% 2.0 % 06/28/2016 Cbc With Differential Ord2 MCHC 35.0 pg 06/28/2016 Cbc With Differential Ord2 PLT 158 K/ul 06/28/2016 Cbc With Differential Ord2 Baso% 0.2 % 06/28/2016 Cbc With Differential Ord2 Neut ABS# 3.63 K/ul 06/28/2016 Cbc With Differential Ord2 RDW 13.9 % 06/28/2016 Cbc With Differential Ord2 Lymph ABS# 1.86 K/ul 06/28/2016 Cbc With Differential Ord2 [place] ABS# 0.5 K/ul 06/28/2016 Cbc With Differential Ord2 Eos ABS# 0.1 K/ul 06/28/2016 Cbc With Differential Ord2 Baso ABS# 0.0 K/ul 06/28/2016 Total Psa Ord10 PSA 0.56 ng/mL 06/28/2016 %Hba1C Abv774 % HbA1c 62553-4 6.6 % 02/21/2016 %Hba1C Gdo460 Gluc Ave 143 mg/dL 02/21/2016 Lipid Ord30 CHOL 131 mg/dL 02/21/2016 Lipid Ord30 HDL 42.0 mg/dl 02/21/2016 Lipid Ord30 TRIG 94 mg/dL 02/21/2016 Lipid Ord30 LDL 70 mg/dL 02/21/2016 Lipid Ord30 C/HDL 3.1 Ratio 02/21/2016 Cbc With Differential Ord2 WBC 5.92 K/ul 02/21/2016 Cbc With Differential Ord2 RBC 4.46 M/ul 02/21/2016 Cbc With Differential Ord2 HGB 13.7 g/dl 02/21/2016 Cbc With Differential Ord2 Neut% 60.4 % 02/21/2016 Cbc With Differential Ord2 HCT 38.7 % 02/21/2016 Cbc With Differential Ord2 MCV 86.8 fl 02/21/2016 Cbc With Differential Ord2 Lymph% 28.9 % 02/21/2016 Cbc With Differential Ord2 [place]% 8.6 % 02/21/2016 Cbc With Differential Ord2 MCH 30.7 pg 02/21/2016 Cbc With Differential Ord2 MCHC 35.4 pg 02/21/2016 Cbc With Differential Ord2 Eos% 1.9 % 02/21/2016 Cbc With Differential Ord2 Baso% 0.2 % 02/21/2016 Cbc With Differential Ord2 PLT 187 K/ul 02/21/2016 Cbc With Differential Ord2 Neut ABS# 3.58 K/ul 02/21/2016 Cbc With Differential Ord2 RDW 13.4 % 02/21/2016 Cbc With Differential Ord2 Lymph ABS# 1.71 K/ul 02/21/2016 Cbc With Differential Ord2 [place] ABS# 0.5 K/ul 02/21/2016 Cbc With Differential Ord2 Eos ABS# 0.1 K/ul 02/21/2016 Cbc With Differential Ord2 Baso ABS# 0.0 K/ul 02/21/2016 Cbc With Differential Ord2 New Analyzer Notice Please note new ref ranges starting 10-27-2015 due to implemntation of new five part differential hematolgy analyzer. 02/21/2016 Comp Metabolic Los983 NA 139 mEq/L 02/21/2016 Comp Metabolic Bdw584 K 4.7 mEq/L 02/21/2016 Comp Metabolic Efv307 CL 101 mEq/L 02/21/2016 Comp Metabolic Bvx178 CO2 29.0 mEq/L 02/21/2016 Comp Metabolic Lrp684 ANION GAP 14 02/21/2016 Comp Metabolic Gdk197 GLUCOSE 144 mg/dL 02/21/2016 Comp Metabolic Noo658 Creat 1.0 mg/dL 02/21/2016 Comp Metabolic Wwo251 eGFR 78 ml/min/1.73m2 02/21/2016 Comp Metabolic Uuf133 BUN 15 mg/dL 02/21/2016 Comp Metabolic Lym843 B/C Ratio 14.7 Ratio 02/21/2016 Comp Metabolic Qsv274 CALCIUM 9.2 mg/dL 02/21/2016 Comp Metabolic Knq565 ALK PHOS 45 U/L 02/21/2016 Comp Metabolic Fwc019 AST(SGOT) 17 U/L 02/21/2016 Comp Metabolic Yhz748 ALT(SGPT) 20 U/L 02/21/2016 Comp Metabolic Cpm349 BILI T 0.6 mg/dL 02/21/2016 Comp Metabolic Cqy882 ALBUMIN 4.3 g/dL 02/21/2016 Comp Metabolic Oio242 TPRO 6.3 g/dL 02/21/2016 Comp Metabolic Wtt021 GLOB 2.0 g/dL 02/21/2016 Comp Metabolic Gxu423 A/G Ratio 2.1 Ratio 02/21/2016 Comp Metabolic Ajo222 Osmo 281 mOsmo 02/21/2016 Tsh Ord6 hTSH II 2.48 uIU/mL 02/21/2016 Free T4 Zyq600 FREE T4 0.92 ng/dL 08/12/2015 Cbc With Differential Ord2 WBC 4.5 K/uL 08/12/2015 Cbc With Differential Ord2 LYM 1.5 K/uL 08/12/2015 Cbc With Differential Ord2 LYM% 33.5 % 08/12/2015 Cbc With Differential Ord2 NEUT/GRAN 2.7 K/uL 08/12/2015 Cbc With Differential Ord2 NEUT/GRAN % 60.6 % 08/12/2015 Cbc With Differential Ord2 MID 0.3 K/uL 08/12/2015 Cbc With Differential Ord2 MID% 5.9 % 08/12/2015 Cbc With Differential Ord2 RBC 4.83 M/uL 08/12/2015 Cbc With Differential Ord2 HGB 14.6 g/dL 08/12/2015 Cbc With Differential Ord2 HCT 44.5 % 08/12/2015 Cbc With Differential Ord2 MCV 92 fL 08/12/2015 Cbc With Differential Ord2 MCH 30 pg 08/12/2015 Cbc With Differential Ord2 MCHC 33 g/dL 08/12/2015 Cbc With Differential Ord2 PLT 161 K/uL 08/12/2015 Cbc With Differential Ord2 RDW 14.6 % 08/12/2015 %Hba1C Dga131 % HbA1c 56770-2 6.4 % 08/12/2015 %Hba1C Qml794 Gluc Ave 137 mg/dL 08/12/2015 Tsh Ord6 hTSH II 2.67 uIU/mL 08/12/2015 Comp Metabolic Mxw310 NA 136 mEq/L 08/12/2015 Comp Metabolic Kfi643 K 4.4 mEq/L 08/12/2015 Comp Metabolic Mgq821 CL 101 mEq/L 08/12/2015 Comp Metabolic Wut393 CO2 28.0 mEq/L 08/12/2015 Comp Metabolic Qic194 ANION GAP 11 08/12/2015 Comp Metabolic Uaj025 GLUCOSE 155 mg/dL 08/12/2015 Comp Metabolic Nfx953 Creat 0.9 mg/dL 08/12/2015 Comp Metabolic Mjf431 eGFR 87 ml/min/1.73m2 08/12/2015 Comp Metabolic Ekb173 BUN 15 mg/dL 08/12/2015 Comp Metabolic Trv925 B/C Ratio 16.1 Ratio 08/12/2015 Comp Metabolic Yto827 CALCIUM 9.3 mg/dL 08/12/2015 Comp Metabolic Bqo684 ALK PHOS 58 U/L 08/12/2015 Comp Metabolic Dbi572 AST(SGOT) 15 U/L 08/12/2015 Comp Metabolic Owl016 ALT(SGPT) 19 U/L 08/12/2015 Comp Metabolic Zhs406 BILI T 0.8 mg/dL 08/12/2015 Comp Metabolic Ugi521 ALBUMIN 4.4 g/dL 08/12/2015 Comp Metabolic Vdl087 TPRO 6.6 g/dL 08/12/2015 Comp Metabolic Cac111 GLOB 2.2 g/dL 08/12/2015 Comp Metabolic Pht907 A/G Ratio 2.0 Ratio 08/12/2015 Comp Metabolic Ikx665 Osmo 276 mOsmo 08/12/2015 Review of Systems System Result Effective Dates Constitutional No chills 10/24/2017 Constitutional No fever 10/24/2017 Eyes No blindness 10/24/2017 Eyes No vision change 10/24/2017 Ears/Nose/Throat/Neck No dental pain 07/2018 Ears/Nose/Throat/Neck No dizziness 2017 Ears/Nose/Throat/Neck No dysphagia 2017 Ears/Nose/Throat/Neck No headache 2017 Ears/Nose/Throat/Neck No hearing loss 07/2018 Ears/Nose/Throat/Neck No nasal allergies 10/24/2017 Ears/Nose/Throat/Neck No sore throat 07/2018 Ears/Nose/Throat/Neck No postnasal drip 10/24/2017 Ears/Nose/Throat/Neck No sinus congestion 10/24/2017 Cardiovascular No chest pain/pressure 07/2018 Cardiovascular No dyspnea 10/24/2017 Cardiovascular No edema 10/24/2017 Cardiovascular No exercise intolerance Cardiovascular No fatigue 10/24/2017 Cardiovascular No near-syncope/dizziness 10/24/2017 Respiratory No cough 10/24/2017 Gastrointestinal No nausea 10/24/2017 Gastrointestinal No vomiting 10/24/2017 Musculoskeletal No stiffness 10/24/2017 Musculoskeletal No arthralgia(s) 2017 Dermatologic No rash 10/24/2017 Dermatologic No scar 10/24/2017 Neurologic No dizziness 10/24/2017 Neurologic No headache 10/24/2017 Neurologic No neck pain 10/24/2017 Neurologic No syncope 10/24/2017 Psychiatric No anxiety 10/24/2017 Psychiatric No depression 10/24/2017 Endocrine diabetes mellitus type 2 2017 Constitutional No chills 05/02/2017 Constitutional No fever 05/02/2017 Eyes No blindness 05/02/2017 Eyes No vision change 05/02/2017 Ears/Nose/Throat/Neck No dental pain Ears/Nose/Throat/Neck No dizziness 2016 Ears/Nose/Throat/Neck No dysphagia 2016 Ears/Nose/Throat/Neck No headache 2016 Ears/Nose/Throat/Neck No hearing loss Ears/Nose/Throat/Neck No nasal allergies 05/02/2017 Ears/Nose/Throat/Neck No sore throat Ears/Nose/Throat/Neck No postnasal drip 05/02/2017 Ears/Nose/Throat/Neck No sinus congestion 05/02/2017 Cardiovascular No chest pain/pressure Cardiovascular No dyspnea 05/02/2017 Cardiovascular No edema 05/02/2017 Cardiovascular No exercise intolerance Cardiovascular No fatigue 05/02/2017 Cardiovascular No near-syncope/dizziness 05/02/2017 Respiratory No cough 05/02/2017 Gastrointestinal No nausea 05/02/2017 Gastrointestinal No vomiting 05/02/2017 Musculoskeletal No stiffness 05/02/2017 Musculoskeletal No arthralgia(s) 2016 Dermatologic No rash 05/02/2017 Dermatologic No scar 05/02/2017 Neurologic No dizziness 05/02/2017 Neurologic No headache 05/02/2017 Neurologic No neck pain 05/02/2017 Neurologic No syncope 05/02/2017 Psychiatric No anxiety 05/02/2017 Psychiatric No depression 05/02/2017 Endocrine diabetes mellitus type 2 2016 Constitutional No fever 01/03/2017 Eyes No eye erythema 01/03/2017 Eyes No vision change 01/03/2017 Ears/Nose/Throat/Neck No nasal allergies 01/03/2017 Cardiovascular No chest pain/pressure Cardiovascular No dyspnea 01/03/2017 Respiratory No cough 01/03/2017 Gastrointestinal No nausea 01/03/2017 Gastrointestinal No vomiting 01/03/2017 Dermatologic No rash 01/03/2017 Constitutional No recent illness 2016 Ears/Nose/Throat/Neck No nasal discharge 01/03/2017 Respiratory No dyspnea 01/03/2017 Neurologic No alteration of consciousness 01/03/2017 Neurologic No mental status change 2016 Constitutional No chills 01/01/2017 Constitutional No fever 01/01/2017 Eyes No blindness 01/01/2017 Eyes No vision change 01/01/2017 Ears/Nose/Throat/Neck No dental pain Ears/Nose/Throat/Neck No dizziness 2016 Ears/Nose/Throat/Neck No dysphagia 2016 Ears/Nose/Throat/Neck No headache 2016 Ears/Nose/Throat/Neck No hearing loss Ears/Nose/Throat/Neck No nasal allergies 01/01/2017 Ears/Nose/Throat/Neck No sore throat Ears/Nose/Throat/Neck No postnasal drip 01/01/2017 Ears/Nose/Throat/Neck No sinus congestion 01/01/2017 Cardiovascular No chest pain/pressure Cardiovascular No dyspnea 01/01/2017 Cardiovascular No edema 01/01/2017 Cardiovascular No exercise intolerance Cardiovascular No fatigue 01/01/2017 Cardiovascular No near-syncope/dizziness 01/01/2017 Respiratory No cough 01/01/2017 Gastrointestinal No nausea 01/01/2017 Gastrointestinal No vomiting 01/01/2017 Musculoskeletal No stiffness 01/01/2017 Musculoskeletal No arthralgia(s) 2016 Dermatologic No rash 01/01/2017 Dermatologic No scar 01/01/2017 Neurologic No dizziness 01/01/2017 Neurologic No headache 01/01/2017 Neurologic No neck pain 01/01/2017 Neurologic No syncope 01/01/2017 Psychiatric No anxiety 01/01/2017 Psychiatric No depression 01/01/2017 Endocrine diabetes mellitus type 2 2016 Constitutional No chills 07/03/2016 Constitutional No fever 07/03/2016 Eyes No blindness 07/03/2016 Eyes No vision change 07/03/2016 Ears/Nose/Throat/Neck No dental pain Ears/Nose/Throat/Neck No dizziness 2015 Ears/Nose/Throat/Neck No dysphagia 2015 Ears/Nose/Throat/Neck No headache 2015 Ears/Nose/Throat/Neck No hearing loss Ears/Nose/Throat/Neck No nasal allergies 07/03/2016 Ears/Nose/Throat/Neck No sore throat Ears/Nose/Throat/Neck No postnasal drip 07/03/2016 Ears/Nose/Throat/Neck No sinus congestion 07/03/2016 Cardiovascular No chest pain/pressure Cardiovascular No dyspnea 07/03/2016 Cardiovascular No edema 07/03/2016 Cardiovascular No exercise intolerance Cardiovascular No fatigue 07/03/2016 Cardiovascular No near-syncope/dizziness 07/03/2016 Respiratory No cough 07/03/2016 Gastrointestinal No nausea 07/03/2016 Gastrointestinal No vomiting 07/03/2016 Musculoskeletal No stiffness 07/03/2016 Musculoskeletal No arthralgia(s) 2015 Dermatologic No rash 07/03/2016 Dermatologic No scar 07/03/2016 Neurologic No dizziness 07/03/2016 Neurologic No headache 07/03/2016 Neurologic No neck pain 07/03/2016 Neurologic No syncope 07/03/2016 Psychiatric No anxiety 07/03/2016 Psychiatric No depression 07/03/2016 Endocrine diabetes mellitus type 2 2015 Constitutional No chills 02/28/2016 Constitutional No fever 02/28/2016 Eyes No blindness 02/28/2016 Eyes No vision change 02/28/2016 Ears/Nose/Throat/Neck No dental pain Ears/Nose/Throat/Neck No dizziness 2015 Ears/Nose/Throat/Neck No dysphagia 2015 Ears/Nose/Throat/Neck No headache 2015 Ears/Nose/Throat/Neck No hearing loss Ears/Nose/Throat/Neck No nasal allergies 02/28/2016 Ears/Nose/Throat/Neck No sore throat Ears/Nose/Throat/Neck No postnasal drip 02/28/2016 Ears/Nose/Throat/Neck No sinus congestion 02/28/2016 Cardiovascular No chest pain/pressure Cardiovascular No dyspnea 02/28/2016 Cardiovascular No edema 02/28/2016 Cardiovascular No exercise intolerance Cardiovascular No fatigue 02/28/2016 Cardiovascular No near-syncope/dizziness 02/28/2016 Respiratory No cough 02/28/2016 Gastrointestinal No nausea 02/28/2016 Gastrointestinal No vomiting 02/28/2016 Musculoskeletal No stiffness 02/28/2016 Musculoskeletal No arthralgia(s) 2015 Dermatologic No rash 02/28/2016 Dermatologic No scar 02/28/2016 Neurologic No dizziness 02/28/2016 Neurologic No headache 02/28/2016 Neurologic No neck pain 02/28/2016 Neurologic No syncope 02/28/2016 Psychiatric No anxiety 02/28/2016 Psychiatric No depression 02/28/2016 Endocrine diabetes mellitus type 2 2015 Constitutional No chills 11/17/2015 Constitutional No fever 11/17/2015 Eyes No blindness 11/17/2015 Eyes No vision change 11/17/2015 Ears/Nose/Throat/Neck No dental pain 12/2015 Ears/Nose/Throat/Neck No dizziness 2015 Ears/Nose/Throat/Neck No dysphagia 2015 Ears/Nose/Throat/Neck No headache 2015 Ears/Nose/Throat/Neck No hearing loss 12/2015 Ears/Nose/Throat/Neck No nasal allergies 11/17/2015 Ears/Nose/Throat/Neck No sore throat 12/2015 Ears/Nose/Throat/Neck No postnasal drip 11/17/2015 Ears/Nose/Throat/Neck No sinus congestion 11/17/2015 Cardiovascular No chest pain/pressure 12/2015 Cardiovascular No dyspnea 11/17/2015 Cardiovascular No edema 11/17/2015 Cardiovascular No exercise intolerance Cardiovascular No fatigue 11/17/2015 Cardiovascular No near-syncope/dizziness 11/17/2015 Respiratory No cough 11/17/2015 Gastrointestinal No nausea 11/17/2015 Gastrointestinal No vomiting 11/17/2015 Musculoskeletal No stiffness 11/17/2015 Musculoskeletal No arthralgia(s) 2015 Dermatologic No rash 11/17/2015 Dermatologic No scar 11/17/2015 Neurologic No dizziness 11/17/2015 Neurologic No headache 11/17/2015 Neurologic No neck pain 11/17/2015 Neurologic No syncope 11/17/2015 Psychiatric No anxiety 11/17/2015 Psychiatric No depression 11/17/2015 Endocrine diabetes mellitus type 2 2015 Constitutional No chills 08/19/2015 Constitutional No fever 08/19/2015 Eyes No blindness 08/19/2015 Eyes No vision change 08/19/2015 Ears/Nose/Throat/Neck No dental pain 02/2015 Ears/Nose/Throat/Neck No dizziness 2014 Ears/Nose/Throat/Neck No dysphagia 2014 Ears/Nose/Throat/Neck No headache 2014 Ears/Nose/Throat/Neck No hearing loss 02/2015 Ears/Nose/Throat/Neck No nasal allergies 08/19/2015 Ears/Nose/Throat/Neck No sore throat 02/2015 Ears/Nose/Throat/Neck No postnasal drip 08/19/2015 Ears/Nose/Throat/Neck No sinus congestion 08/19/2015 Cardiovascular No chest pain/pressure 02/2015 Cardiovascular No dyspnea 08/19/2015 Cardiovascular No edema 08/19/2015 Cardiovascular No exercise intolerance Cardiovascular No fatigue 08/19/2015 Cardiovascular No near-syncope/dizziness 08/19/2015 Respiratory No cough 08/19/2015 Gastrointestinal No nausea 08/19/2015 Gastrointestinal No vomiting 08/19/2015 Musculoskeletal No stiffness 08/19/2015 Musculoskeletal No arthralgia(s) 2014 Dermatologic No rash 08/19/2015 Dermatologic No scar 08/19/2015 Neurologic No dizziness 08/19/2015 Neurologic No headache 08/19/2015 Neurologic No neck pain 08/19/2015 Neurologic No syncope 08/19/2015 Psychiatric No anxiety 08/19/2015 Psychiatric No depression 08/19/2015 Endocrine diabetes mellitus type 2 2014 Constitutional No chills 02/18/2015 Constitutional No fever 02/18/2015 Eyes No blindness 02/18/2015 Eyes No vision change 02/18/2015 Ears/Nose/Throat/Neck No dental pain 04/2015 Ears/Nose/Throat/Neck No dizziness 2014 Ears/Nose/Throat/Neck No dysphagia 2014 Ears/Nose/Throat/Neck No headache 2014 Ears/Nose/Throat/Neck No hearing loss 04/2015 Ears/Nose/Throat/Neck No nasal allergies 02/18/2015 Ears/Nose/Throat/Neck No sore throat 04/2015 Ears/Nose/Throat/Neck No postnasal drip 02/18/2015 Ears/Nose/Throat/Neck No sinus congestion 02/18/2015 Cardiovascular No chest pain/pressure 04/2015 Cardiovascular No dyspnea 02/18/2015 Cardiovascular No edema 02/18/2015 Cardiovascular No exercise intolerance Cardiovascular No fatigue 02/18/2015 Cardiovascular No near-syncope/dizziness 02/18/2015 Respiratory No cough 02/18/2015 Gastrointestinal No nausea 02/18/2015 Gastrointestinal No vomiting 02/18/2015 Musculoskeletal No stiffness 02/18/2015 Musculoskeletal No arthralgia(s) 2014 Dermatologic No rash 02/18/2015 Dermatologic No scar 02/18/2015 Neurologic No dizziness 02/18/2015 Neurologic No headache 02/18/2015 Neurologic No neck pain 02/18/2015 Neurologic No syncope 02/18/2015 Psychiatric No anxiety 02/18/2015 Psychiatric No depression 02/18/2015 Endocrine diabetes mellitus type 2 2014 Constitutional No recent illness 2013 Constitutional No insomnia 07/23/2014 Constitutional No fatigue 07/23/2014 Cardiovascular No dyspnea 07/23/2014 Cardiovascular No chest pain/pressure 06/2014 Constitutional No chills 07/23/2014 Constitutional No fever 07/23/2014 Eyes No blindness 07/23/2014 Eyes No vision change 07/23/2014 Ears/Nose/Throat/Neck No dental pain 06/2014 Ears/Nose/Throat/Neck No dizziness 2013 Ears/Nose/Throat/Neck No dysphagia 2013 Ears/Nose/Throat/Neck No headache 2013 Ears/Nose/Throat/Neck No hearing loss 06/2014 Ears/Nose/Throat/Neck No nasal allergies 07/23/2014 Ears/Nose/Throat/Neck No sore throat 06/2014 Ears/Nose/Throat/Neck No postnasal drip 07/23/2014 Ears/Nose/Throat/Neck No sinus congestion 07/23/2014 Cardiovascular No edema 07/23/2014 Cardiovascular No exercise intolerance Cardiovascular No near-syncope/dizziness 07/23/2014 Respiratory No cough 07/23/2014 Gastrointestinal No nausea 07/23/2014 Gastrointestinal No vomiting 07/23/2014 Musculoskeletal No stiffness 07/23/2014 Musculoskeletal No arthralgia(s) 2013 Dermatologic No rash 07/23/2014 Dermatologic No scar 07/23/2014 Neurologic No dizziness 07/23/2014 Neurologic No headache 07/23/2014 Neurologic No neck pain 07/23/2014 Neurologic No syncope 07/23/2014 Psychiatric No anxiety 07/23/2014 Psychiatric No depression 07/23/2014 Constitutional No chills 03/24/2014 Constitutional No fever 03/24/2014 Eyes No blindness 03/24/2014 Eyes No vision change 03/24/2014 Ears/Nose/Throat/Neck No dental pain 07/2014 Ears/Nose/Throat/Neck No dizziness 2013 Ears/Nose/Throat/Neck No dysphagia 2013 Ears/Nose/Throat/Neck No headache 2013 Ears/Nose/Throat/Neck No hearing loss 07/2014 Ears/Nose/Throat/Neck No nasal allergies 03/24/2014 Ears/Nose/Throat/Neck No sore throat 07/2014 Ears/Nose/Throat/Neck No postnasal drip 03/24/2014 Ears/Nose/Throat/Neck No sinus congestion 03/24/2014 Cardiovascular No chest pain/pressure 07/2014 Cardiovascular No dyspnea 03/24/2014 Cardiovascular No edema 03/24/2014 Cardiovascular No exercise intolerance Cardiovascular No fatigue 03/24/2014 Cardiovascular No near-syncope/dizziness 03/24/2014 Respiratory No cough 03/24/2014 Gastrointestinal No nausea 03/24/2014 Gastrointestinal No vomiting 03/24/2014 Musculoskeletal No stiffness 03/24/2014 Musculoskeletal No arthralgia(s) 2013 Dermatologic No rash 03/24/2014 Dermatologic No scar 03/24/2014 Neurologic No dizziness 03/24/2014 Neurologic No headache 03/24/2014 Neurologic No neck pain 03/24/2014 Neurologic No syncope 03/24/2014 Psychiatric No anxiety 03/24/2014 Psychiatric No depression 03/24/2014 Constitutional No chills 11/25/2013 Constitutional No fever 11/25/2013 Respiratory No cough 11/25/2013 Gastrointestinal No nausea 11/25/2013 Gastrointestinal No vomiting 11/25/2013 Musculoskeletal No stiffness 11/25/2013 Musculoskeletal No arthralgia(s) 2013 Dermatologic No rash 11/25/2013 Dermatologic No scar 11/25/2013 Neurologic No dizziness 11/25/2013 Neurologic No headache 11/25/2013 Neurologic No neck pain 11/25/2013 Neurologic No syncope 11/25/2013 Psychiatric No anxiety 11/25/2013 Psychiatric No depression 11/25/2013 Ears/Nose/Throat/Neck No dental pain 08/2014 Ears/Nose/Throat/Neck No dizziness 2013 Ears/Nose/Throat/Neck No dysphagia 2013 Ears/Nose/Throat/Neck No headache 2013 Ears/Nose/Throat/Neck No hearing loss 08/2014 Ears/Nose/Throat/Neck No nasal allergies 11/25/2013 Ears/Nose/Throat/Neck No sore throat 08/2014 Ears/Nose/Throat/Neck No postnasal drip 11/25/2013 Ears/Nose/Throat/Neck No sinus congestion 11/25/2013 Eyes No blindness 11/25/2013 Eyes No vision change 11/25/2013 Cardiovascular No chest pain/pressure 08/2014 Cardiovascular No dyspnea 11/25/2013 Cardiovascular No edema 11/25/2013 Cardiovascular No exercise intolerance Cardiovascular No fatigue 11/25/2013 Cardiovascular No near-syncope/dizziness 11/25/2013 Constitutional No chills 07/22/2013 Constitutional No fever 07/22/2013 Respiratory No cough 07/22/2013 Gastrointestinal No nausea 07/22/2013 Gastrointestinal No vomiting 07/22/2013 Musculoskeletal No stiffness 07/22/2013 Musculoskeletal No arthralgia(s) 2012 Dermatologic No rash 07/22/2013 Dermatologic No scar 07/22/2013 Neurologic No dizziness 07/22/2013 Neurologic No headache 07/22/2013 Neurologic No neck pain 07/22/2013 Neurologic No syncope 07/22/2013 Psychiatric No anxiety 07/22/2013 Psychiatric No depression 07/22/2013 Constitutional No chills 04/22/2013 Constitutional No fever 04/22/2013 Respiratory No cough 04/22/2013 Gastrointestinal No nausea 04/22/2013 Gastrointestinal No vomiting 04/22/2013 Musculoskeletal No stiffness 04/22/2013 Musculoskeletal No arthralgia(s) 2012 Dermatologic No rash 04/22/2013 Dermatologic No scar 04/22/2013 Neurologic No dizziness 04/22/2013 Neurologic No headache 04/22/2013 Neurologic No neck pain 04/22/2013 Neurologic No syncope 04/22/2013 Psychiatric No anxiety 04/22/2013 Psychiatric No depression 04/22/2013 Constitutional No chills 01/21/2013 Constitutional No fever 01/21/2013 Respiratory No cough 01/21/2013 Gastrointestinal No nausea 01/21/2013 Gastrointestinal No vomiting 01/21/2013 Musculoskeletal No stiffness 01/21/2013 Musculoskeletal No arthralgia(s) 2012 Dermatologic No rash 01/21/2013 Dermatologic No scar 01/21/2013 Neurologic No dizziness 01/21/2013 Neurologic No headache 01/21/2013 Neurologic No neck pain 01/21/2013 Neurologic No syncope 01/21/2013 Psychiatric No anxiety 01/21/2013 Psychiatric No depression 01/21/2013 Constitutional No chills 10/22/2012 Constitutional No fever 10/22/2012 Respiratory No cough 10/22/2012 Gastrointestinal No nausea 10/22/2012 Gastrointestinal No vomiting 10/22/2012 Musculoskeletal No stiffness 10/22/2012 Musculoskeletal No arthralgia(s) 2012 Dermatologic No rash 10/22/2012 Dermatologic No scar 10/22/2012 Neurologic No dizziness 10/22/2012 Neurologic No headache 10/22/2012 Neurologic No neck pain 10/22/2012 Neurologic No syncope 10/22/2012 Psychiatric No anxiety 10/22/2012 Psychiatric No depression 10/22/2012 Constitutional No chills 09/12/2012 Constitutional No fever 09/12/2012 Respiratory No cough 09/12/2012 Gastrointestinal No nausea 09/12/2012 Gastrointestinal No vomiting 09/12/2012 Musculoskeletal No stiffness 09/12/2012 Musculoskeletal No arthralgia(s) 2011 Psychiatric No anxiety 09/12/2012 Psychiatric No depression 09/12/2012 Neurologic No dizziness 09/12/2012 Neurologic No headache 09/12/2012 Neurologic No neck pain 09/12/2012 Neurologic No syncope 09/12/2012 Dermatologic No rash 09/12/2012 Dermatologic No scar 09/12/2012 Constitutional No chills 07/23/2012 Constitutional No fever 07/23/2012 Cardiovascular No chest pain/pressure 06/2012 Respiratory No cough 07/23/2012 Gastrointestinal No nausea 07/23/2012 Gastrointestinal No vomiting 07/23/2012 Musculoskeletal No stiffness 07/23/2012 Musculoskeletal No arthralgia(s) 2011 Psychiatric No anxiety 07/23/2012 Psychiatric No depression 07/23/2012 Constitutional No chills 06/12/2012 Constitutional No fever 06/12/2012 Cardiovascular No chest pain/pressure Respiratory No cough 06/12/2012 Gastrointestinal No nausea 06/12/2012 Gastrointestinal No vomiting 06/12/2012 Musculoskeletal No stiffness 06/12/2012 Musculoskeletal No arthralgia(s) 2011 Psychiatric No anxiety 06/12/2012 Psychiatric No depression 06/12/2012 Constitutional No chills 01/10/2012 Constitutional No fever 01/10/2012 Cardiovascular No chest pain/pressure Respiratory No cough 01/10/2012 Gastrointestinal No nausea 01/10/2012 Gastrointestinal No vomiting 01/10/2012 Musculoskeletal No stiffness 01/10/2012 Musculoskeletal No arthralgia(s) 2011 Psychiatric No anxiety 01/10/2012 Psychiatric No depression 01/10/2012 Constitutional No chills 09/13/2011 Constitutional No fever 09/13/2011 Cardiovascular No chest pain/pressure Respiratory No cough 09/13/2011 Gastrointestinal No nausea 09/13/2011 Gastrointestinal No vomiting 09/13/2011 Musculoskeletal No stiffness 09/13/2011 Musculoskeletal No arthralgia(s) 2010 Psychiatric No anxiety 09/13/2011 Psychiatric No depression 09/13/2011 Constitutional No chills 08/09/2011 Constitutional No fever 08/09/2011 Gastrointestinal No nausea 08/09/2011 Gastrointestinal No vomiting 08/09/2011 Cardiovascular No chest pain/pressure Respiratory No cough 08/09/2011 Musculoskeletal No stiffness 08/09/2011 Musculoskeletal No arthralgia(s) 2010 Psychiatric No anxiety 08/09/2011 Psychiatric No depression 08/09/2011 Physical Exam Exam Name System Name Item Name Status Result Effective Dates Notes Full Exam - General 1994 Constitutional general appearance Overall: well developed 10/24/2017 None Full Exam - General 1994 Constitutional general appearance Overall: in no acute distress 10/24/2017 None Full Exam - General 1994 Constitutional general appearance Overall: well nourished 10/24/2017 None Full Exam - General 1994 Eyes pupils and irises Overall: pupils equal, round, reactive to light and accomodation 10/24/2017 None Full Exam - General 1994 Ears/Nose/Throat oral cavity/pharynx/larynx Overall: oral mucosa clear 10/24/2017 None Full Exam - General 1994 Ears/Nose/Throat oral cavity/pharynx/larynx Overall: oropharyngeal mucosa clear 10/24/2017 None Full Exam - General 1994 Ears/Nose/Throat oral cavity/pharynx/larynx Overall: no masses 10/24/2017 None Full Exam - General 1994 Respiratory auscultation Overall: breath sounds clear bilaterally 10/24/2017 None Full Exam - General 1994 Respiratory respiratory effort/rhythm Overall: no retractions 10/24/2017 None Full Exam - General 1994 Respiratory respiratory effort/rhythm Overall: normal rate 10/24/2017 None Full Exam - General 1994 Cardiovascular auscultation of heart Overall: regular rate 10/24/2017 None Full Exam - General 1994 Cardiovascular auscultation of heart Overall: normal heart sounds 10/24/2017 None Full Exam - General 1994 Cardiovascular auscultation of heart Overall: no murmurs 10/24/2017 None Full Exam - General 1994 Abdomen abdominal exam Overall: no tenderness 10/24/2017 None Full Exam - General 1994 Abdomen abdominal exam Overall: normal bowel sounds 10/24/2017 None Full Exam - General 1994 Musculoskeletal head and neck Overall: head atraumatic 10/24/2017 None Full Exam - General 1994 Musculoskeletal head and neck Overall: cervical spine benign 10/24/2017 None Full Exam - General 1994 Integument inspection of skin Overall: few scattered moles, no gross abnormalities 10/24/2017 None Full Exam - General 1994 Neurologic sensation Overall: intact to touch, pin, proprioception 10/24/2017 None Full Exam - General 1994 Neurologic cranial nerves Overall: crainial nerves 2 - 12 grossly intact 10/24/2017 None Full Exam - General 1994 Psychiatric orientation/consciousness Overall: oriented to person, place and time 10/24/2017 None Full Exam - General 1994 Psychiatric mood and affect Overall: normal mood and affect 10/24/2017 None Full Exam - General 1994 Constitutional general appearance Overall: well developed 05/02/2017 None Full Exam - General 1994 Constitutional general appearance Overall: in no acute distress 05/02/2017 None Full Exam - General 1994 Constitutional general appearance Overall: well nourished 05/02/2017 None Full Exam - General 1994 Eyes pupils and irises Overall: pupils equal, round, reactive to light and accomodation 05/02/2017 None Full Exam - General 1994 Ears/Nose/Throat oral cavity/pharynx/larynx Overall: oral mucosa clear 05/02/2017 None Full Exam - General 1994 Ears/Nose/Throat oral cavity/pharynx/larynx Overall: oropharyngeal mucosa clear 05/02/2017 None Full Exam - General 1994 Ears/Nose/Throat oral cavity/pharynx/larynx Overall: no masses 05/02/2017 None Full Exam - General 1994 Respiratory auscultation Overall: breath sounds clear bilaterally 05/02/2017 None Full Exam - General 1994 Respiratory respiratory effort/rhythm Overall: no retractions 05/02/2017 None Full Exam - General 1994 Respiratory respiratory effort/rhythm Overall: normal rate 05/02/2017 None Full Exam - General 1994 Cardiovascular auscultation of heart Overall: regular rate 05/02/2017 None Full Exam - General 1994 Cardiovascular auscultation of heart Overall: normal heart sounds 05/02/2017 None Full Exam - General 1994 Cardiovascular auscultation of heart Overall: no murmurs 05/02/2017 None Full Exam - General 1994 Abdomen abdominal exam Overall: no tenderness 05/02/2017 None Full Exam - General 1994 Abdomen abdominal exam Overall: normal bowel sounds 05/02/2017 None Full Exam - General 1994 Musculoskeletal head and neck Overall: head atraumatic 05/02/2017 None Full Exam - General 1994 Musculoskeletal head and neck Overall: cervical spine benign 05/02/2017 None Full Exam - General 1994 Integument inspection of skin Overall: few scattered moles, no gross abnormalities 05/02/2017 None Full Exam - General 1994 Neurologic sensation Overall: intact to touch, pin, proprioception 05/02/2017 None Full Exam - General 1994 Neurologic cranial nerves Overall: crainial nerves 2 - 12 grossly intact 05/02/2017 None Full Exam - General 1994 Psychiatric orientation/consciousness Overall: oriented to person, place and time 05/02/2017 None Full Exam - General 1994 Psychiatric mood and affect Overall: normal mood and affect 05/02/2017 None Full Exam - General 1994 Constitutional general appearance Overall: well developed 01/03/2017 None Full Exam - General 1994 Constitutional general appearance Overall: in no acute distress 01/03/2017 None Full Exam - General 1994 Constitutional general appearance Overall: well nourished 01/03/2017 None Full Exam - General 1994 Ears/Nose/Throat oral cavity/pharynx/larynx Overall: oral mucosa clear 01/03/2017 None Full Exam - General 1994 Respiratory auscultation Overall: breath sounds clear bilaterally 01/03/2017 None Full Exam - General 1994 Respiratory respiratory effort/rhythm Overall: no retractions 01/03/2017 None Full Exam - General 1994 Respiratory respiratory effort/rhythm Overall: normal rate 01/03/2017 None Full Exam - General 1994 Cardiovascular auscultation of heart Overall: regular rate 01/03/2017 None Full Exam - General 1994 Cardiovascular auscultation of heart Overall: normal heart sounds 01/03/2017 None Full Exam - General 1994 Musculoskeletal head and neck Overall: head atraumatic 01/03/2017 None Full Exam - General 1994 Neurologic cranial nerves Overall: crainial nerves 2 - 12 grossly intact 01/03/2017 None Full Exam - General 1994 Psychiatric orientation/consciousness Overall: oriented to person, place and time 01/03/2017 None Full Exam - General 1994 Psychiatric mood and affect Overall: normal mood and affect 01/03/2017 None Full Exam - General 1994 Eyes conjunctiva /eyelids Overall: conjunctiva clear 01/03/2017 None Full Exam - General 1994 Eyes conjunctiva /eyelids Overall: eyelids normal 01/03/2017 None Full Exam - General 1994 Ears/Nose/Throat lips/teeth/gingiva Overall: benign lips 01/03/2017 None Full Exam - General 1994 Psychiatric appearance Overall: well-groomed, good eye contact 01/03/2017 None Full Exam - General 1994 Constitutional general appearance Overall: well developed 01/01/2017 None Full Exam - General 1994 Constitutional general appearance Overall: in no acute distress 01/01/2017 None Full Exam - General 1994 Constitutional general appearance Overall: well nourished 01/01/2017 None Full Exam - General 1994 Eyes pupils and irises Overall: pupils equal, round, reactive to light and accomodation 01/01/2017 None Full Exam - General 1994 Ears/Nose/Throat oral cavity/pharynx/larynx Overall: oral mucosa clear 01/01/2017 None Full Exam - General 1994 Ears/Nose/Throat oral cavity/pharynx/larynx Overall: oropharyngeal mucosa clear 01/01/2017 None Full Exam - General 1994 Ears/Nose/Throat oral cavity/pharynx/larynx Overall: no masses 01/01/2017 None Full Exam - General 1994 Respiratory auscultation Overall: breath sounds clear bilaterally 01/01/2017 None Full Exam - General 1994 Respiratory respiratory effort/rhythm Overall: no retractions 01/01/2017 None Full Exam - General 1994 Respiratory respiratory effort/rhythm Overall: normal rate 01/01/2017 None Full Exam - General 1994 Cardiovascular auscultation of heart Overall: regular rate 01/01/2017 None Full Exam - General 1994 Cardiovascular auscultation of heart Overall: normal heart sounds 01/01/2017 None Full Exam - General 1994 Cardiovascular auscultation of heart Overall: no murmurs 01/01/2017 None Full Exam - General 1994 Abdomen abdominal exam Overall: no tenderness 01/01/2017 None Full Exam - General 1994 Abdomen abdominal exam Overall: normal bowel sounds 01/01/2017 None Full Exam - General 1994 Musculoskeletal head and neck Overall: head atraumatic 01/01/2017 None Full Exam - General 1994 Musculoskeletal head and neck Overall: cervical spine benign 01/01/2017 None Full Exam - General 1994 Integument inspection of skin Overall: few scattered moles, no gross abnormalities 01/01/2017 None Full Exam - General 1994 Neurologic sensation Overall: intact to touch, pin, proprioception 01/01/2017 None Full Exam - General 1994 Neurologic cranial nerves Overall: crainial nerves 2 - 12 grossly intact 01/01/2017 None Full Exam - General 1994 Psychiatric orientation/consciousness Overall: oriented to person, place and time 01/01/2017 None Full Exam - General 1994 Psychiatric mood and affect Overall: normal mood and affect 01/01/2017 None Full Exam - General 1994 Constitutional general appearance Overall: well developed 07/03/2016 None Full Exam - General 1994 Constitutional general appearance Overall: in no acute distress 07/03/2016 None Full Exam - General 1994 Constitutional general appearance Overall: well nourished 07/03/2016 None Full Exam - General 1994 Eyes pupils and irises Overall: pupils equal, round, reactive to light and accomodation 07/03/2016 None Full Exam - General 1994 Ears/Nose/Throat oral cavity/pharynx/larynx Overall: oral mucosa clear 07/03/2016 None Full Exam - General 1994 Ears/Nose/Throat oral cavity/pharynx/larynx Overall: oropharyngeal mucosa clear 07/03/2016 None Full Exam - General 1994 Ears/Nose/Throat oral cavity/pharynx/larynx Overall: no masses 07/03/2016 None Full Exam - General 1994 Respiratory auscultation Overall: breath sounds clear bilaterally 07/03/2016 None Full Exam - General 1994 Respiratory respiratory effort/rhythm Overall: no retractions 07/03/2016 None Full Exam - General 1994 Respiratory respiratory effort/rhythm Overall: normal rate 07/03/2016 None Full Exam - General 1994 Cardiovascular auscultation of heart Overall: regular rate 07/03/2016 None Full Exam - General 1994 Cardiovascular auscultation of heart Overall: normal heart sounds 07/03/2016 None Full Exam - General 1994 Cardiovascular auscultation of heart Overall: no murmurs 07/03/2016 None Full Exam - General 1994 Abdomen abdominal exam Overall: no tenderness 07/03/2016 None Full Exam - General 1994 Abdomen abdominal exam Overall: normal bowel sounds 07/03/2016 None Full Exam - General 1994 Musculoskeletal head and neck Overall: head atraumatic 07/03/2016 None Full Exam - General 1994 Musculoskeletal head and neck Overall: cervical spine benign 07/03/2016 None Full Exam - General 1994 Integument inspection of skin Overall: few scattered moles, no gross abnormalities 07/03/2016 None Full Exam - General 1994 Neurologic sensation Overall: intact to touch, pin, proprioception 07/03/2016 None Full Exam - General 1994 Neurologic cranial nerves Overall: crainial nerves 2 - 12 grossly intact 07/03/2016 None Full Exam - General 1994 Psychiatric orientation/consciousness Overall: oriented to person, place and time 07/03/2016 None Full Exam - General 1994 Psychiatric mood and affect Overall: normal mood and affect 07/03/2016 None Full Exam - General 1994 Constitutional general appearance Overall: well developed 02/28/2016 None Full Exam - General 1994 Constitutional general appearance Overall: in no acute distress 02/28/2016 None Full Exam - General 1994 Constitutional general appearance Overall: well nourished 02/28/2016 None Full Exam - General 1994 Eyes pupils and irises Overall: pupils equal, round, reactive to light and accomodation 02/28/2016 None Full Exam - General 1994 Ears/Nose/Throat oral cavity/pharynx/larynx Overall: oral mucosa clear 02/28/2016 None Full Exam - General 1994 Ears/Nose/Throat oral cavity/pharynx/larynx Overall: oropharyngeal mucosa clear 02/28/2016 None Full Exam - General 1994 Ears/Nose/Throat oral cavity/pharynx/larynx Overall: no masses 02/28/2016 None Full Exam - General 1994 Respiratory auscultation Overall: breath sounds clear bilaterally 02/28/2016 None Full Exam - General 1994 Respiratory respiratory effort/rhythm Overall: no retractions 02/28/2016 None Full Exam - General 1994 Respiratory respiratory effort/rhythm Overall: normal rate 02/28/2016 None Full Exam - General 1994 Cardiovascular auscultation of heart Overall: regular rate 02/28/2016 None Full Exam - General 1994 Cardiovascular auscultation of heart Overall: normal heart sounds 02/28/2016 None Full Exam - General 1994 Cardiovascular auscultation of heart Overall: no murmurs 02/28/2016 None Full Exam - General 1994 Abdomen abdominal exam Overall: no tenderness 02/28/2016 None Full Exam - General 1994 Abdomen abdominal exam Overall: normal bowel sounds 02/28/2016 None Full Exam - General 1994 Musculoskeletal head and neck Overall: head atraumatic 02/28/2016 None Full Exam - General 1994 Musculoskeletal head and neck Overall: cervical spine benign 02/28/2016 None Full Exam - General 1994 Integument inspection of skin Overall: few scattered moles, no gross abnormalities 02/28/2016 None Full Exam - General 1994 Neurologic sensation Overall: intact to touch, pin, proprioception 02/28/2016 None Full Exam - General 1994 Neurologic cranial nerves Overall: crainial nerves 2 - 12 grossly intact 02/28/2016 None Full Exam - General 1994 Psychiatric orientation/consciousness Overall: oriented to person, place and time 02/28/2016 None Full Exam - General 1994 Psychiatric mood and affect Overall: normal mood and affect 02/28/2016 None Full Exam - General 1994 Constitutional general appearance Overall: well developed 11/17/2015 None Full Exam - General 1994 Constitutional general appearance Overall: in no acute distress 11/17/2015 None Full Exam - General 1994 Constitutional general appearance Overall: well nourished 11/17/2015 None Full Exam - General 1994 Eyes pupils and irises Overall: pupils equal, round, reactive to light and accomodation 11/17/2015 None Full Exam - General 1994 Ears/Nose/Throat oral cavity/pharynx/larynx Overall: oral mucosa clear 11/17/2015 None Full Exam - General 1994 Ears/Nose/Throat oral cavity/pharynx/larynx Overall: oropharyngeal mucosa clear 11/17/2015 None Full Exam - General 1994 Ears/Nose/Throat oral cavity/pharynx/larynx Overall: no masses 11/17/2015 None Full Exam - General 1994 Respiratory auscultation Overall: breath sounds clear bilaterally 11/17/2015 None Full Exam - General 1994 Respiratory respiratory effort/rhythm Overall: no retractions 11/17/2015 None Full Exam - General 1994 Respiratory respiratory effort/rhythm Overall: normal rate 11/17/2015 None Full Exam - General 1994 Cardiovascular auscultation of heart Overall: regular rate 11/17/2015 None Full Exam - General 1994 Cardiovascular auscultation of heart Overall: normal heart sounds 11/17/2015 None Full Exam - General 1994 Cardiovascular auscultation of heart Overall: no murmurs 11/17/2015 None Full Exam - General 1994 Abdomen abdominal exam Overall: no tenderness 11/17/2015 None Full Exam - General 1994 Abdomen abdominal exam Overall: normal bowel sounds 11/17/2015 None Full Exam - General 1994 Musculoskeletal head and neck Overall: head atraumatic 11/17/2015 None Full Exam - General 1994 Musculoskeletal head and neck Overall: cervical spine benign 11/17/2015 None Full Exam - General 1994 Integument inspection of skin Overall: few scattered moles, no gross abnormalities 11/17/2015 None Full Exam - General 1994 Neurologic cranial nerves Overall: crainial nerves 2 - 12 grossly intact 11/17/2015 None Full Exam - General 1994 Psychiatric orientation/consciousness Overall: oriented to person, place and time 11/17/2015 None Full Exam - General 1994 Psychiatric mood and affect Overall: normal mood and affect 11/17/2015 None Full Exam - General 1994 Neurologic deep tendon reflexes Overall: deep tendon reflexes intact 11/17/2015 None Full Exam - General 1994 Eyes conjunctiva /eyelids Overall: conjunctiva clear 11/17/2015 None Full Exam - General 1994 Eyes conjunctiva /eyelids Overall: cornea clear 11/17/2015 None Full Exam - General 1994 Eyes conjunctiva /eyelids Overall: eyelids normal 11/17/2015 None Full Exam - General 1994 Ears/Nose/Throat otoscopic exam Overall: external auditory canals clear 11/17/2015 None Full Exam - General 1994 Ears/Nose/Throat otoscopic exam Overall: tympanic membranes clear 11/17/2015 None Full Exam - General 1994 Ears/Nose/Throat lips/teeth/gingiva Overall: benign lips 11/17/2015 None Full Exam - General 1994 Ears/Nose/Throat lips/teeth/gingiva Overall: normal dentition 11/17/2015 None Full Exam - General 1994 Lymphatic neck nodes Overall: anterior cervical chain benign 11/17/2015 None Full Exam - General 1994 Lymphatic neck nodes Overall: posterior cervical chain benign 11/17/2015 None Full Exam - General 1994 Neurologic gait Overall: no ataxia, no unsteadiness 11/17/2015 None Full Exam - General 1994 Psychiatric appearance Overall: well-groomed, good eye contact 11/17/2015 None Full Exam - General 1994 Psychiatric speech Overall: normal quality, no aphasia 11/17/2015 None Full Exam - General 1994 Psychiatric speech Overall: normal quality, quantity, rate 11/17/2015 None Full Exam - General 1994 Psychiatric thought Overall: normal form and content 11/17/2015 None Full Exam - General 1994 Constitutional general appearance Overall: well developed 08/19/2015 None Full Exam - General 1994 Constitutional general appearance Overall: in no acute distress 08/19/2015 None Full Exam - General 1994 Constitutional general appearance Overall: well nourished 08/19/2015 None Full Exam - General 1994 Eyes pupils and irises Overall: pupils equal, round, reactive to light and accomodation 08/19/2015 None Full Exam - General 1994 Ears/Nose/Throat oral cavity/pharynx/larynx Overall: oral mucosa clear 08/19/2015 None Full Exam - General 1994 Ears/Nose/Throat oral cavity/pharynx/larynx Overall: oropharyngeal mucosa clear 08/19/2015 None Full Exam - General 1994 Ears/Nose/Throat oral cavity/pharynx/larynx Overall: no masses 08/19/2015 None Full Exam - General 1994 Respiratory auscultation Overall: breath sounds clear bilaterally 08/19/2015 None Full Exam - General 1994 Respiratory respiratory effort/rhythm Overall: no retractions 08/19/2015 None Full Exam - General 1994 Respiratory respiratory effort/rhythm Overall: normal rate 08/19/2015 None Full Exam - General 1994 Cardiovascular auscultation of heart Overall: regular rate 08/19/2015 None Full Exam - General 1994 Cardiovascular auscultation of heart Overall: normal heart sounds 08/19/2015 None Full Exam - General 1994 Cardiovascular auscultation of heart Overall: no murmurs 08/19/2015 None Full Exam - General 1994 Abdomen abdominal exam Overall: no tenderness 08/19/2015 None Full Exam - General 1994 Abdomen abdominal exam Overall: normal bowel sounds 08/19/2015 None Full Exam - General 1994 Musculoskeletal head and neck Overall: head atraumatic 08/19/2015 None Full Exam - General 1994 Musculoskeletal head and neck Overall: cervical spine benign 08/19/2015 None Full Exam - General 1994 Integument inspection of skin Overall: few scattered moles, no gross abnormalities 08/19/2015 None Full Exam - General 1994 Neurologic sensation Overall: intact to touch, pin, proprioception 08/19/2015 None Full Exam - General 1994 Neurologic cranial nerves Overall: crainial nerves 2 - 12 grossly intact 08/19/2015 None Full Exam - General 1994 Psychiatric orientation/consciousness Overall: oriented to person, place and time 08/19/2015 None Full Exam - General 1994 Psychiatric mood and affect Overall: normal mood and affect 08/19/2015 None Full Exam - General 1994 Constitutional general appearance Overall: well developed 02/18/2015 None Full Exam - General 1994 Constitutional general appearance Overall: in no acute distress 02/18/2015 None Full Exam - General 1994 Constitutional general appearance Overall: well nourished 02/18/2015 None Full Exam - General 1994 Eyes pupils and irises Overall: pupils equal, round, reactive to light and accomodation 02/18/2015 None Full Exam - General 1994 Ears/Nose/Throat oral cavity/pharynx/larynx Overall: oral mucosa clear 02/18/2015 None Full Exam - General 1994 Ears/Nose/Throat oral cavity/pharynx/larynx Overall: oropharyngeal mucosa clear 02/18/2015 None Full Exam - General 1994 Ears/Nose/Throat oral cavity/pharynx/larynx Overall: no masses 02/18/2015 None Full Exam - General 1994 Respiratory auscultation Overall: breath sounds clear bilaterally 02/18/2015 None Full Exam - General 1994 Respiratory respiratory effort/rhythm Overall: no retractions 02/18/2015 None Full Exam - General 1994 Respiratory respiratory effort/rhythm Overall: normal rate 02/18/2015 None Full Exam - General 1994 Cardiovascular auscultation of heart Overall: regular rate 02/18/2015 None Full Exam - General 1994 Cardiovascular auscultation of heart Overall: normal heart sounds 02/18/2015 None Full Exam - General 1994 Cardiovascular auscultation of heart Overall: no murmurs 02/18/2015 None Full Exam - General 1994 Abdomen abdominal exam Overall: no tenderness 02/18/2015 None Full Exam - General 1994 Abdomen abdominal exam Overall: normal bowel sounds 02/18/2015 None Full Exam - General 1994 Musculoskeletal head and neck Overall: head atraumatic 02/18/2015 None Full Exam - General 1994 Musculoskeletal head and neck Overall: cervical spine benign 02/18/2015 None Full Exam - General 1994 Neurologic sensation Overall: intact to touch, pin, proprioception 02/18/2015 None Full Exam - General 1994 Neurologic cranial nerves Overall: crainial nerves 2 - 12 grossly intact 02/18/2015 None Full Exam - General 1994 Psychiatric orientation/consciousness Overall: oriented to person, place and time 02/18/2015 None Full Exam - General 1994 Psychiatric mood and affect Overall: normal mood and affect 02/18/2015 None Full Exam - General 1994 Integument inspection of skin Overall: few scattered moles, no gross abnormalities 02/18/2015 None Full Exam - General 1995 Constitutional general appearance Overall: well developed 07/23/2014 None Full Exam - General 1994 Constitutional general appearance Overall: in no acute distress 07/23/2014 None Full Exam - General 1994 Constitutional general appearance Overall: well nourished 07/23/2014 None Full Exam - General 1994 Eyes pupils and irises Overall: pupils equal, round, reactive to light and accomodation 07/23/2014 None Full Exam - General 1994 Ears/Nose/Throat oral cavity/pharynx/larynx Overall: oral mucosa clear 07/23/2014 None Full Exam - General 1995 Ears/Nose/Throat oral cavity/pharynx/larynx Overall: oropharyngeal mucosa clear 07/23/2014 None Full Exam - General 1994 Ears/Nose/Throat oral cavity/pharynx/larynx Overall: no masses 07/23/2014 None Full Exam - General 1994 Respiratory auscultation Overall: breath sounds clear bilaterally 07/23/2014 None Full Exam - General 1994 Respiratory respiratory effort/rhythm Overall: no retractions 07/23/2014 None Full Exam - General 1994 Respiratory respiratory effort/rhythm Overall: normal rate 07/23/2014 None Full Exam - General 1994 Cardiovascular auscultation of heart Overall: regular rate 07/23/2014 None Full Exam - General 1994 Cardiovascular auscultation of heart Overall: normal heart sounds 07/23/2014 None Full Exam - General 1994 Cardiovascular auscultation of heart Overall: no murmurs 07/23/2014 None Full Exam - General 1994 Abdomen abdominal exam Overall: no tenderness 07/23/2014 None Full Exam - General 1994 Abdomen abdominal exam Overall: normal bowel sounds 07/23/2014 None Full Exam - General 1994 Musculoskeletal head and neck Overall: head atraumatic 07/23/2014 None Full Exam - General 1994 Musculoskeletal head and neck Overall: cervical spine benign 07/23/2014 None Full Exam - General 1994 Neurologic sensation Overall: intact to touch, pin, proprioception 07/23/2014 None Full Exam - General 1994 Neurologic cranial nerves Overall: crainial nerves 2 - 12 grossly intact 07/23/2014 None Full Exam - General 1994 Psychiatric orientation/consciousness Overall: oriented to person, place and time 07/23/2014 None Full Exam - General 1994 Psychiatric mood and affect Overall: normal mood and affect 07/23/2014 None Full Exam - General 1994 Constitutional general appearance Overall: well developed 03/24/2014 None Full Exam - General 1994 Constitutional general appearance Overall: in no acute distress 03/24/2014 None Full Exam - General 1994 Constitutional general appearance Overall: well nourished 03/24/2014 None Full Exam - General 1994 Eyes pupils and irises Overall: pupils equal, round, reactive to light and accomodation 03/24/2014 None Full Exam - General 1994 Ears/Nose/Throat oral cavity/pharynx/larynx Overall: oral mucosa clear 03/24/2014 None Full Exam - General 1994 Ears/Nose/Throat oral cavity/pharynx/larynx Overall: oropharyngeal mucosa clear 03/24/2014 None Full Exam - General 1994 Ears/Nose/Throat oral cavity/pharynx/larynx Overall: no masses 03/24/2014 None Full Exam - General 1994 Respiratory auscultation Overall: breath sounds clear bilaterally 03/24/2014 None Full Exam - General 1994 Respiratory respiratory effort/rhythm Overall: no retractions 03/24/2014 None Full Exam - General 1994 Respiratory respiratory effort/rhythm Overall: normal rate 03/24/2014 None Full Exam - General 1994 Cardiovascular auscultation of heart Overall: regular rate 03/24/2014 None Full Exam - General 1994 Cardiovascular auscultation of heart Overall: normal heart sounds 03/24/2014 None Full Exam - General 1994 Cardiovascular auscultation of heart Overall: no murmurs 03/24/2014 None Full Exam - General 1994 Abdomen abdominal exam Overall: no tenderness 03/24/2014 None Full Exam - General 1994 Abdomen abdominal exam Overall: normal bowel sounds 03/24/2014 None Full Exam - General 1994 Musculoskeletal head and neck Overall: head atraumatic 03/24/2014 None Full Exam - General 1994 Musculoskeletal head and neck Overall: cervical spine benign 03/24/2014 None Full Exam - General 1994 Neurologic sensation Overall: intact to touch, pin, proprioception 03/24/2014 None Full Exam - General 1994 Neurologic cranial nerves Overall: crainial nerves 2 - 12 grossly intact 03/24/2014 None Full Exam - General 1994 Psychiatric orientation/consciousness Overall: oriented to person, place and time 03/24/2014 None Full Exam - General 1994 Psychiatric mood and affect Overall: normal mood and affect 03/24/2014 None Full Exam - General 1994 Constitutional general appearance Overall: well developed 11/25/2013 None Full Exam - General 1994 Constitutional general appearance Overall: in no acute distress 11/25/2013 None Full Exam - General 1994 Constitutional general appearance Overall: well nourished 11/25/2013 None Full Exam - General 1994 Eyes pupils and irises Overall: pupils equal, round, reactive to light and accomodation 11/25/2013 None Full Exam - General 1995 Ears/Nose/Throat oral cavity/pharynx/larynx Overall: oral mucosa clear 11/25/2013 None Full Exam - General 1995 Ears/Nose/Throat oral cavity/pharynx/larynx Overall: oropharyngeal mucosa clear 11/25/2013 None Full Exam - General 1995 Ears/Nose/Throat oral cavity/pharynx/larynx Overall: no masses 11/25/2013 None Full Exam - General 1994 Respiratory auscultation Overall: breath sounds clear bilaterally 11/25/2013 None Full Exam - General 1994 Respiratory respiratory effort/rhythm Overall: no retractions 11/25/2013 None Full Exam - General 1994 Respiratory respiratory effort/rhythm Overall: normal rate 11/25/2013 None Full Exam - General 1994 Cardiovascular auscultation of heart Overall: regular rate 11/25/2013 None Full Exam - General 1994 Cardiovascular auscultation of heart Overall: normal heart sounds 11/25/2013 None Full Exam - General 1994 Cardiovascular auscultation of heart Overall: no murmurs 11/25/2013 None Full Exam - General 1994 Abdomen abdominal exam Overall: no tenderness 11/25/2013 None Full Exam - General 1994 Abdomen abdominal exam Overall: normal bowel sounds 11/25/2013 None Full Exam - General 1994 Musculoskeletal head and neck Overall: head atraumatic 11/25/2013 None Full Exam - General 1994 Musculoskeletal head and neck Overall: cervical spine benign 11/25/2013 None Full Exam - General 1994 Psychiatric orientation/consciousness Overall: oriented to person, place and time 11/25/2013 None Full Exam - General 1994 Psychiatric mood and affect Overall: normal mood and affect 11/25/2013 None Full Exam - General 1994 Neurologic cranial nerves Overall: crainial nerves 2 - 12 grossly intact 11/25/2013 None Full Exam - General 1994 Neurologic sensation Overall: intact to touch, pin, proprioception 11/25/2013 None Full Exam - General 1994 Constitutional general appearance Overall: well developed 07/22/2013 None Full Exam - General 1994 Constitutional general appearance Overall: in no acute distress 07/22/2013 None Full Exam - General 1994 Constitutional general appearance Overall: well nourished 07/22/2013 None Full Exam - General 1994 Eyes pupils and irises Overall: pupils equal, round, reactive to light and accomodation 07/22/2013 None Full Exam - General 1995 Ears/Nose/Throat oral cavity/pharynx/larynx Overall: oral mucosa clear 07/22/2013 None Full Exam - General 1995 Ears/Nose/Throat oral cavity/pharynx/larynx Overall: oropharyngeal mucosa clear 07/22/2013 None Full Exam - General 1995 Ears/Nose/Throat oral cavity/pharynx/larynx Overall: no masses 07/22/2013 None Full Exam - General 1995 Respiratory auscultation Overall: breath sounds clear bilaterally 07/22/2013 None Full Exam - General 1994 Respiratory respiratory effort/rhythm Overall: no retractions 07/22/2013 None Full Exam - General 1994 Respiratory respiratory effort/rhythm Overall: normal rate 07/22/2013 None Full Exam - General 1994 Cardiovascular auscultation of heart Overall: regular rate 07/22/2013 None Full Exam - General 1994 Cardiovascular auscultation of heart Overall: normal heart sounds 07/22/2013 None Full Exam - General 1994 Cardiovascular auscultation of heart Overall: no murmurs 07/22/2013 None Full Exam - General 1994 Abdomen abdominal exam Overall: no tenderness 07/22/2013 None Full Exam - General 1994 Abdomen abdominal exam Overall: normal bowel sounds 07/22/2013 None Full Exam - General 1994 Musculoskeletal head and neck Overall: head atraumatic 07/22/2013 None Full Exam - General 1994 Musculoskeletal head and neck Overall: cervical spine benign 07/22/2013 None Full Exam - General 1994 Psychiatric orientation/consciousness Overall: oriented to person, place and time 07/22/2013 None Full Exam - General 1994 Psychiatric mood and affect Overall: normal mood and affect 07/22/2013 None Full Exam - General 1994 Constitutional general appearance Overall: well developed 04/22/2013 None Full Exam - General 1994 Constitutional general appearance Overall: in no acute distress 04/22/2013 None Full Exam - General 1994 Constitutional general appearance Overall: well nourished 04/22/2013 None Full Exam - General 1994 Eyes pupils and irises Overall: pupils equal, round, reactive to light and accomodation 04/22/2013 None Full Exam - General 1994 Ears/Nose/Throat oral cavity/pharynx/larynx Overall: oral mucosa clear 04/22/2013 None Full Exam - General 1995 Ears/Nose/Throat oral cavity/pharynx/larynx Overall: oropharyngeal mucosa clear 04/22/2013 None Full Exam - General 1995 Ears/Nose/Throat oral cavity/pharynx/larynx Overall: no masses 04/22/2013 None Full Exam - General 1995 Respiratory auscultation Overall: breath sounds clear bilaterally 04/22/2013 None Full Exam - General 1995 Respiratory respiratory effort/rhythm Overall: no retractions 04/22/2013 None Full Exam - General 1995 Respiratory respiratory effort/rhythm Overall: normal rate 04/22/2013 None Full Exam - General 1995 Cardiovascular auscultation of heart Overall: regular rate 04/22/2013 None Full Exam - General 1995 Cardiovascular auscultation of heart Overall: normal heart sounds 04/22/2013 None Full Exam - General 1994 Cardiovascular auscultation of heart Overall: no murmurs 04/22/2013 None Full Exam - General 1994 Abdomen abdominal exam Overall: no tenderness 04/22/2013 None Full Exam - General 1994 Abdomen abdominal exam Overall: normal bowel sounds 04/22/2013 None Full Exam - General 1994 Musculoskeletal head and neck Overall: head atraumatic 04/22/2013 None Full Exam - General 1994 Musculoskeletal head and neck Overall: cervical spine benign 04/22/2013 None Full Exam - General 1994 Psychiatric orientation/consciousness Overall: oriented to person, place and time 04/22/2013 None Full Exam - General 1994 Psychiatric mood and affect Overall: normal mood and affect 04/22/2013 None Full Exam - General 1994 Constitutional general appearance Overall: well developed 01/21/2013 None Full Exam - General 1994 Constitutional general appearance Overall: in no acute distress 01/21/2013 None Full Exam - General 1994 Constitutional general appearance Overall: well nourished 01/21/2013 None Full Exam - General 1994 Eyes pupils and irises Overall: pupils equal, round, reactive to light and accomodation 01/21/2013 None Full Exam - General 1994 Ears/Nose/Throat oral cavity/pharynx/larynx Overall: oral mucosa clear 01/21/2013 None Full Exam - General 1995 Ears/Nose/Throat oral cavity/pharynx/larynx Overall: oropharyngeal mucosa clear 01/21/2013 None Full Exam - General 1994 Ears/Nose/Throat oral cavity/pharynx/larynx Overall: no masses 01/21/2013 None Full Exam - General 1995 Respiratory auscultation Overall: breath sounds clear bilaterally 01/21/2013 None Full Exam - General 1995 Respiratory respiratory effort/rhythm Overall: no retractions 01/21/2013 None Full Exam - General 1995 Respiratory respiratory effort/rhythm Overall: normal rate 01/21/2013 None Full Exam - General 1995 Cardiovascular auscultation of heart Overall: regular rate 01/21/2013 None Full Exam - General 1994 Cardiovascular auscultation of heart Overall: normal heart sounds 01/21/2013 None Full Exam - General 1994 Cardiovascular auscultation of heart Overall: no murmurs 01/21/2013 None Full Exam - General 1995 Abdomen abdominal exam Overall: no tenderness 01/21/2013 None Full Exam - General 1995 Abdomen abdominal exam Overall: normal bowel sounds 01/21/2013 None Full Exam - General 1994 Musculoskeletal head and neck Overall: head atraumatic 01/21/2013 None Full Exam - General 1994 Musculoskeletal head and neck Overall: cervical spine benign 01/21/2013 None Full Exam - General 1994 Psychiatric orientation/consciousness Overall: oriented to person, place and time 01/21/2013 None Full Exam - General 1994 Psychiatric mood and affect Overall: normal mood and affect 01/21/2013 None Full Exam - General 1994 Constitutional general appearance Overall: well developed 10/22/2012 None Full Exam - General 1994 Constitutional general appearance Overall: in no acute distress 10/22/2012 None Full Exam - General 1994 Constitutional general appearance Overall: well nourished 10/22/2012 None Full Exam - General 1994 Eyes pupils and irises Overall: pupils equal, round, reactive to light and accomodation 10/22/2012 None Full Exam - General 1994 Ears/Nose/Throat oral cavity/pharynx/larynx Overall: oral mucosa clear 10/22/2012 None Full Exam - General 1994 Ears/Nose/Throat oral cavity/pharynx/larynx Overall: oropharyngeal mucosa clear 10/22/2012 None Full Exam - General 1994 Ears/Nose/Throat oral cavity/pharynx/larynx Overall: no masses 10/22/2012 None Full Exam - General 1994 Respiratory auscultation Overall: breath sounds clear bilaterally 10/22/2012 None Full Exam - General 1994 Respiratory respiratory effort/rhythm Overall: no retractions 10/22/2012 None Full Exam - General 1994 Respiratory respiratory effort/rhythm Overall: normal rate 10/22/2012 None Full Exam - General 1995 Cardiovascular auscultation of heart Overall: regular rate 10/22/2012 None Full Exam - General 1995 Cardiovascular auscultation of heart Overall: normal heart sounds 10/22/2012 None Full Exam - General 1994 Cardiovascular auscultation of heart Overall: no murmurs 10/22/2012 None Full Exam - General 1994 Abdomen abdominal exam Overall: no tenderness 10/22/2012 None Full Exam - General 1995 Abdomen abdominal exam Overall: normal bowel sounds 10/22/2012 None Full Exam - General 1994 Musculoskeletal head and neck Overall: head atraumatic 10/22/2012 None Full Exam - General 1994 Musculoskeletal head and neck Overall: cervical spine benign 10/22/2012 None Full Exam - General 1994 Psychiatric orientation/consciousness Overall: oriented to person, place and time 10/22/2012 None Full Exam - General 1994 Psychiatric mood and affect Overall: normal mood and affect 10/22/2012 None Full Exam - General 1994 Constitutional general appearance Overall: well developed 09/12/2012 None Full Exam - General 1994 Constitutional general appearance Overall: in no acute distress 09/12/2012 None Full Exam - General 1994 Constitutional general appearance Overall: well nourished 09/12/2012 None Full Exam - General 1994 Eyes pupils and irises Overall: pupils equal, round, reactive to light and accomodation 09/12/2012 None Full Exam - General 1994 Ears/Nose/Throat oral cavity/pharynx/larynx Overall: oral mucosa clear 09/12/2012 None Full Exam - General 1994 Ears/Nose/Throat oral cavity/pharynx/larynx Overall: oropharyngeal mucosa clear 09/12/2012 None Full Exam - General 1994 Ears/Nose/Throat oral cavity/pharynx/larynx Overall: no masses 09/12/2012 None Full Exam - General 1994 Respiratory auscultation Overall: breath sounds clear bilaterally 09/12/2012 None Full Exam - General 1994 Respiratory respiratory effort/rhythm Overall: no retractions 09/12/2012 None Full Exam - General 1994 Respiratory respiratory effort/rhythm Overall: normal rate 09/12/2012 None Full Exam - General 1994 Cardiovascular auscultation of heart Overall: regular rate 09/12/2012 None Full Exam - General 1994 Cardiovascular auscultation of heart Overall: normal heart sounds 09/12/2012 None Full Exam - General 1994 Cardiovascular auscultation of heart Overall: no murmurs 09/12/2012 None Full Exam - General 1994 Abdomen abdominal exam Overall: no tenderness 09/12/2012 None Full Exam - General 1994 Abdomen abdominal exam Overall: normal bowel sounds 09/12/2012 None Full Exam - General 1994 Musculoskeletal head and neck Overall: head atraumatic 09/12/2012 None Full Exam - General 1994 Musculoskeletal head and neck Overall: cervical spine benign 09/12/2012 None Full Exam - General 1994 Psychiatric orientation/consciousness Overall: oriented to person, place and time 09/12/2012 None Full Exam - General 1994 Psychiatric mood and affect Overall: normal mood and affect 09/12/2012 None Full Exam - General 1995 Constitutional general appearance Overall: well developed 07/23/2012 None Full Exam - General 1994 Constitutional general appearance Overall: in no acute distress 07/23/2012 None Full Exam - General 1994 Constitutional general appearance Overall: well nourished 07/23/2012 None Full Exam - General 1994 Eyes pupils and irises Overall: pupils equal, round, reactive to light and accomodation 07/23/2012 None Full Exam - General 1994 Ears/Nose/Throat oral cavity/pharynx/larynx Overall: oral mucosa clear 07/23/2012 None Full Exam - General 1995 Ears/Nose/Throat oral cavity/pharynx/larynx Overall: oropharyngeal mucosa clear 07/23/2012 None Full Exam - General 1995 Ears/Nose/Throat oral cavity/pharynx/larynx Overall: no masses 07/23/2012 None Full Exam - General 1994 Respiratory auscultation Overall: breath sounds clear bilaterally 07/23/2012 None Full Exam - General 1994 Respiratory respiratory effort/rhythm Overall: no retractions 07/23/2012 None Full Exam - General 1994 Respiratory respiratory effort/rhythm Overall: normal rate 07/23/2012 None Full Exam - General 1994 Cardiovascular auscultation of heart Overall: regular rate 07/23/2012 None Full Exam - General 1994 Cardiovascular auscultation of heart Overall: normal heart sounds 07/23/2012 None Full Exam - General 1994 Cardiovascular auscultation of heart Overall: no murmurs 07/23/2012 None Full Exam - General 1994 Abdomen abdominal exam Overall: no tenderness 07/23/2012 None Full Exam - General 1994 Abdomen abdominal exam Overall: normal bowel sounds 07/23/2012 None Full Exam - General 1994 Musculoskeletal head and neck Overall: head atraumatic 07/23/2012 None Full Exam - General 1994 Musculoskeletal head and neck Overall: cervical spine benign 07/23/2012 None Full Exam - General 1994 Psychiatric orientation/consciousness Overall: oriented to person, place and time 07/23/2012 None Full Exam - General 1994 Psychiatric mood and affect Overall: normal mood and affect 07/23/2012 None Full Exam - General 1994 Constitutional general appearance Overall: well nourished 06/12/2012 None Full Exam - General 1994 Constitutional general appearance Overall: well developed 06/12/2012 None Full Exam - General 1994 Constitutional general appearance Overall: in no acute distress 06/12/2012 None Full Exam - General 1994 Eyes pupils and irises Overall: pupils equal, round, reactive to light and accomodation 06/12/2012 None Full Exam - General 1994 Ears/Nose/Throat oral cavity/pharynx/larynx Overall: oral mucosa clear 06/12/2012 None Full Exam - General 1994 Ears/Nose/Throat oral cavity/pharynx/larynx Overall: oropharyngeal mucosa clear 06/12/2012 None Full Exam - General 1994 Ears/Nose/Throat oral cavity/pharynx/larynx Overall: no masses 06/12/2012 None Full Exam - General 1994 Respiratory auscultation Overall: breath sounds clear bilaterally 06/12/2012 None Full Exam - General 1994 Respiratory respiratory effort/rhythm Overall: no retractions 06/12/2012 None Full Exam - General 1994 Respiratory respiratory effort/rhythm Overall: normal rate 06/12/2012 None Full Exam - General 1994 Cardiovascular auscultation of heart Overall: regular rate 06/12/2012 None Full Exam - General 1994 Cardiovascular auscultation of heart Overall: normal heart sounds 06/12/2012 None Full Exam - General 1994 Cardiovascular auscultation of heart Overall: no murmurs 06/12/2012 None Full Exam - General 1994 Abdomen abdominal exam Overall: no tenderness 06/12/2012 None Full Exam - General 1994 Abdomen abdominal exam Overall: normal bowel sounds 06/12/2012 None Full Exam - General 1994 Musculoskeletal head and neck Overall: head atraumatic 06/12/2012 None Full Exam - General 1994 Musculoskeletal head and neck Overall: cervical spine benign 06/12/2012 None Full Exam - General 1994 Integument inspection of skin Overall: no rash, lesions 06/12/2012 None Full Exam - General 1994 Neurologic deep tendon reflexes Overall: deep tendon reflexes intact 06/12/2012 None Full Exam - General 1994 Neurologic sensation Overall: intact to touch, pin, vibration, proprioception 06/12/2012 None Full Exam - General 1994 Neurologic motor Overall: normal bulk, tone 06/12/2012 None Full Exam - General 1994 Psychiatric orientation/consciousness Overall: oriented to person, place and time 06/12/2012 None Full Exam - General 1994 Psychiatric mood and affect Overall: normal mood and affect 06/12/2012 None Full Exam - General 1994 Respiratory auscultation Overall: breath sounds clear bilaterally 01/10/2012 None Full Exam - General 1994 Respiratory respiratory effort/rhythm Overall: no retractions 01/10/2012 None Full Exam - General 1994 Respiratory respiratory effort/rhythm Overall: normal rate 01/10/2012 None Full Exam - General 1994 Cardiovascular auscultation of heart Overall: regular rate 01/10/2012 None Full Exam - General 1994 Cardiovascular auscultation of heart Overall: normal heart sounds 01/10/2012 None Full Exam - General 1994 Cardiovascular auscultation of heart Overall: no murmurs 01/10/2012 None Full Exam - General 1994 Abdomen abdominal exam Overall: no tenderness 01/10/2012 None Full Exam - General 1994 Abdomen abdominal exam Overall: normal bowel sounds 01/10/2012 None Full Exam - General 1994 Musculoskeletal head and neck Overall: head atraumatic 01/10/2012 None Full Exam - General 1994 Musculoskeletal head and neck Overall: cervical spine benign 01/10/2012 None Full Exam - General 1994 Integument inspection of skin Overall: no rash, lesions 01/10/2012 None Full Exam - General 1994 Neurologic deep tendon reflexes Overall: deep tendon reflexes intact 01/10/2012 None Full Exam - General 1994 Neurologic sensation Overall: intact to touch, pin, vibration, proprioception 01/10/2012 None Full Exam - General 1994 Constitutional general appearance Overall: well nourished 01/10/2012 None Full Exam - General 1994 Constitutional general appearance Overall: well developed 01/10/2012 None Full Exam - General 1994 Constitutional general appearance Overall: in no acute distress 01/10/2012 None Full Exam - General 1994 Eyes pupils and irises Overall: pupils equal, round, reactive to light and accomodation 01/10/2012 None Full Exam - General 1994 Ears/Nose/Throat oral cavity/pharynx/larynx Overall: oral mucosa clear 01/10/2012 None Full Exam - General 1994 Ears/Nose/Throat oral cavity/pharynx/larynx Overall: oropharyngeal mucosa clear 01/10/2012 None Full Exam - General 1994 Ears/Nose/Throat oral cavity/pharynx/larynx Overall: no masses 01/10/2012 None Full Exam - General 1994 Neurologic motor Overall: normal bulk, tone 01/10/2012 None Full Exam - General 1994 Psychiatric orientation/consciousness Overall: oriented to person, place and time 01/10/2012 None Full Exam - General 1994 Psychiatric mood and affect Overall: normal mood and affect 01/10/2012 None Full Exam - General 1994 Constitutional general appearance Overall: well nourished 09/13/2011 None Full Exam - General 1994 Eyes pupils and irises Overall: pupils equal, round, reactive to light and accomodation 09/13/2011 None Full Exam - General 1994 Abdomen abdominal exam Overall: no tenderness 09/13/2011 None Full Exam - General 1994 Abdomen abdominal exam Overall: normal bowel sounds 09/13/2011 None Full Exam - General 1994 Musculoskeletal head and neck Overall: cervical spine benign 09/13/2011 None Full Exam - General 1994 Musculoskeletal head and neck Overall: head atraumatic 09/13/2011 None Full Exam - General 1994 Integument inspection of skin Overall: no rash, lesions 09/13/2011 None Full Exam - General 1994 Neurologic deep tendon reflexes Overall: deep tendon reflexes intact 09/13/2011 None Full Exam - General 1994 Neurologic motor Overall: normal bulk, tone 09/13/2011 None Full Exam - General 1994 Neurologic sensation Overall: intact to touch, pin, vibration, proprioception 09/13/2011 None Full Exam - General 1994 Constitutional general appearance Overall: well developed 09/13/2011 None Full Exam - General 1994 Constitutional general appearance Overall: in no acute distress 09/13/2011 None Full Exam - General 1994 Respiratory auscultation Overall: breath sounds clear bilaterally 09/13/2011 None Full Exam - General 1994 Respiratory respiratory effort/rhythm Overall: no retractions 09/13/2011 None Full Exam - General 1994 Respiratory respiratory effort/rhythm Overall: normal rate 09/13/2011 None Full Exam - General 1994 Cardiovascular auscultation of heart Overall: regular rate 09/13/2011 None Full Exam - General 1994 Cardiovascular auscultation of heart Overall: normal heart sounds 09/13/2011 None Full Exam - General 1994 Cardiovascular auscultation of heart Overall: no murmurs 09/13/2011 None Full Exam - General 1994 Psychiatric orientation/consciousness Overall: oriented to person, place and time 09/13/2011 None Full Exam - General 1994 Psychiatric mood and affect Overall: normal mood and affect 09/13/2011 None Full Exam - General 1994 Ears/Nose/Throat oral cavity/pharynx/larynx Overall: oropharyngeal mucosa clear 09/13/2011 None Full Exam - General 1994 Ears/Nose/Throat oral cavity/pharynx/larynx Overall: no masses 09/13/2011 None Full Exam - General 1994 Ears/Nose/Throat oral cavity/pharynx/larynx Overall: oral mucosa clear 09/13/2011 None Full Exam - General 1994 Cardiovascular auscultation of heart Overall: no murmurs 08/09/2011 None Full Exam - General 1994 Integument inspection of skin Location: see diagram 08/09/2011 None Full Exam - General 1994 Integument inspection of skin Consistency: thick 08/09/2011 None Full Exam - General 1994 Constitutional general appearance Overall: well nourished 08/09/2011 None Full Exam - General 1994 Constitutional general appearance Overall: well developed 08/09/2011 None Full Exam - General 1994 Constitutional general appearance Overall: in no acute distress 08/09/2011 None Full Exam - General 1994 Psychiatric mood and affect Overall: normal mood and affect 08/09/2011 None Full Exam - General 1994 Psychiatric orientation/consciousness Overall: oriented to person, place and time 08/09/2011 None Full Exam - General 1994 Respiratory respiratory effort/rhythm Overall: normal rate 08/09/2011 None Full Exam - General 1994 Respiratory respiratory effort/rhythm Overall: no retractions 08/09/2011 None Full Exam - General 1994 Respiratory auscultation Overall: breath sounds clear bilaterally 08/09/2011 None Full Exam - General 1994 Cardiovascular auscultation of heart Overall: regular rate 08/09/2011 None Full Exam - General 1994 Cardiovascular auscultation of heart Overall: normal heart sounds 08/09/2011 None Procedures Procedure Codes Date PPPS, SUBSEQ VISIT CPT -4: G0439 01/03/2017 ADMIN INFLUENZA VIRUS VAC CPT-4: G0008 07/03/2016 FLU VACC PRSV FREE INC ANTIG CPT-4: 61572 07/03/2016 INITIAL PREVENTIVE EXAM CPT-4: G0402 11/17/2015 FOOT EXAM PERFORMED SNOMED CT: 11589140 CPT-4: 2028F 11/25/2013 IMMUNIZATION ADMIN CPT -4: 57004 08/07/2013 Influenza Virus Vaccine, Split Virus, >3 Yrs, IM CPT-4: 59597 08/07/2013 32184 EST. PATIENT, LEVEL IV CPT-4: 72504 10/22/2012 DESTRUCT PREMALG LESION CPT-4: 16250 08/09/2011 DESTRUCT PREMALG LES 2-14 CPT-4: 85779 08/09/2011 Vital Signs Date Vital 10/24/2017 Blood Pressure 1: 152/76 Code : 8480-6 BMI: 30.4 Code : 99969-3 Heart Rate 1 : 65 bpm Height: 5'2" SpO2: 98% Weight: 166 lbs 05/02/2017 Blood Pressure 1: 140/78 Code : 8480-6 BMI: 29.4 Code : 62998-6 Heart Rate 1 : 75 bpm Height: 5'2" SpO2: 97% Weight: 161 lbs 01/03/2017 Blood Pressure 1: 150/82 Code : 8480-6 BMI: 31.5 Code : 39454-7 Heart Rate 1 : 49 bpm Height: 5'2" SpO2: 94% Waist Measure (cm): 86 cm Weight: 172 lbs 01/01/2017 Blood Pressure 1: 150/80 Code : 8480-6 BMI: 31.5 Code : 04289-9 Heart Rate 1 : 57 bpm Height: 5'2" SpO2: 97% Weight: 172 lbs 07/03/2016 Blood Pressure 1: 156/82 Code : 8480-6 BMI: 26.3 Code : 48921-6 Heart Rate 1 : 57 bpm Height: 5'7" SpO2: 98% Weight: 168 lbs 02/28/2016 Blood Pressure 1: 128/82 Code : 8480-6 BMI: 26.6 Code : 92774-3 Heart Rate 1 : 64 bpm Height: 5'7" SpO2: 96% Weight: 170 lbs 11/17/2015 Blood Pressure 1: 140/80 Code : 8480-6 BMI: 26.3 Code : 77392-2 Heart Rate 1 : 61 bpm Height: 5'7" SpO2: 94% Waist Measure (cm): 94 cm Weight: 168 lbs 08/19/2015 Blood Pressure 1: 140/78 Code : 8480-6 BMI: 26.5 Code : 32180-2 Heart Rate 1 : 66 bpm Height: 5'7" SpO2: 97% Weight: 169 lbs 02/18/2015 Blood Pressure 1: 148/92 Code : 8480-6 BMI: 26.8 Code : 27194-2 Heart Rate 1 : 56 bpm Height: 5'7" Weight: 171 lbs 07/23/2014 Blood Pressure 1: 162/84 Code : 8480-6 BMI: 26.3 Code : 45279-1 Heart Rate 1 : 70 bpm Height: 5'7" Weight: 168 lbs 03/24/2014 Blood Pressure 1: 156/70 Code : 8480-6 BMI: 25.7 Code : 92321-6 Heart Rate 1 : 52 bpm Height: 5'8" Weight: 168 lbs 11/25/2013 Blood Pressure 1: 152/82 Code : 8480-6 BMI: 25.5 Code : 37440-8 Heart Rate 1 : 48 bpm Height: 5'8" Weight: 167 lbs 07/22/2013 Blood Pressure 1: 152/92 Code : 8480-6 BMI: 24.5 Code : 15976-4 Heart Rate 1 : 64 bpm Height: 5'8" Weight: 160 lbs 8 oz 06/18/2013 Weight: 167 lbs 05/20/2013 Weight: 166 lbs 04/22/2013 Blood Pressure 1: 160/80 Code : 8480-6 BMI: 26.3 Code : 07231-9 Heart Rate 1 : 80 bpm Height: 5'8" Weight: 172 lbs 01/21/2013 Blood Pressure 1: 174/92 Code : 8480-6 Blood Pressure 2: 170/88 Code: 8480-6 BMI: 26.2 Code: 29595-6 Heart Rate 1: 72 bpm Height: 5'8" Weight: 171 lbs 10/22/2012 Blood Pressure 1: 136/86 Code : 8480-6 BMI: 26.0 Code : 04678-3 Heart Rate 1 : 60 bpm Height: 5'8" Weight: 170 lbs 09/12/2012 Blood Pressure 1: 178/80 Code : 8480-6 Heart Rate 1: 52 bpm Weight: 173 lbs 07/23/2012 Blood Pressure 1: 138/72 Code : 8480-6 BMI: 26.2 Code : 55124-8 Heart Rate 1 : 76 bpm Height: 5'8" Weight: 171 lbs 06/12/2012 Blood Pressure 1: 146/72 Code : 8480-6 Heart Rate 1: 64 bpm Respiratory Rate : 16 bpm Weight: 171 lbs 01/10/2012 Blood Pressure 1: 118/58 Code : 8480-6 BMI: 26.2 Code : 38152-4 Heart Rate 1 : 72 bpm Height: 5'8" Respiratory Rate: 16 bpm Weight: 171 lbs 09/13/2011 Blood Pressure 1: 142/84 Code : 8480-6 BMI: 26.0 Code : 41596-5 Heart Rate 1 : 88 bpm Height: 5'8" Respiratory Rate: 20 bpm Weight: 170 lbs 08/09/2011 Blood Pressure 1: 138/70 Code : 8480-6 BMI: 26.2 Code : 06620-8 Heart Rate 1 : 76 bpm Height: 5'8" Respiratory Rate: 16 bpm Weight: 171 lbs Functional Status No Functional Status data History of Present Illness Symptom Name Status Result Effective Date Notes diabetes mellitus Onset of Symptom onset as an adult 10/24/2017 None diabetes mellitus Quality non-insulin dependent 10/24/2017 None diabetes mellitus Severity moderate 10/24/2017 None diabetes mellitus Alleviating Factors medication 10/24/2017 None diabetes mellitus Exacerbating Factors diet 10/24/2017 None diabetes mellitus Pertinent Findings Denies dizziness 10/24/2017 None diabetes mellitus Pertinent Findings Denies dyspnea 10/24/2017 None diabetes mellitus Pertinent Findings Denies nausea 10/24/2017 None hypertension Quality chronic 10/24/2017 None hypertension Onset and Resolution ongoing 10/24/2017 None hypertension Onset of Symptom during adulthood 10/24/2017 None hypertension Blood Pressure Values patient checking blood pressure at home - did not bring in readings 10/24/2017 -Checks occasionally hypertension Alleviating Factors medication 10/24/2017 None hypertension Pertinent Findings Denies dizziness 10/24/2017 None hypertension Pertinent Findings Denies dyspnea 10/24/2017 None hypertension Pertinent Findings edema 10/24/2017 in his ankles- left more than the right- decreases during the night hyperlipidemia Onset and Resolution gradual in onset 10/24/2017 None hyperlipidemia Onset of Symptom during adulthood 10/24/2017 None hyperlipidemia Significant Medications statin 10/24/2017 None hyperlipidemia Alleviating Factors medication 10/24/2017 None hyperlipidemia Exacerbating Factors diet 10/24/2017 None hypertension Quality primary hypertension 10/24/2017 None diabetes mellitus Glucose monitoring occasional glucose testing 10/24/2017 None diabetes mellitus Test results Pt checking blood glucose at home, see scanned readings 2017 None diabetes mellitus Onset of Symptom onset as an adult 05/02/2017 None diabetes mellitus Quality non-insulin dependent 05/02/2017 None diabetes mellitus Severity moderate 05/02/2017 None diabetes mellitus Alleviating Factors medication 05/02/2017 None diabetes mellitus Exacerbating Factors diet 05/02/2017 None diabetes mellitus Pertinent Findings Denies dizziness 05/02/2017 None diabetes mellitus Pertinent Findings Denies dyspnea 05/02/2017 None diabetes mellitus Pertinent Findings Denies nausea 05/02/2017 None hypertension Quality chronic 05/02/2017 None hypertension Onset and Resolution ongoing 05/02/2017 None hypertension Onset of Symptom during adulthood 05/02/2017 None hypertension Blood Pressure Values patient checking blood pressure at home - did not bring in readings 05/02/2017 -Checks occasionally hypertension Alleviating Factors medication 05/02/2017 None hypertension Pertinent Findings Denies dizziness 05/02/2017 None hypertension Pertinent Findings Denies dyspnea 05/02/2017 None hypertension Pertinent Findings edema 05/02/2017 -occasionally- decreases during the night hyperlipidemia Onset and Resolution gradual in onset 05/02/2017 None hyperlipidemia Onset and Resolution ongoing 05/02/2017 None hyperlipidemia Onset of Symptom during adulthood 05/02/2017 None hyperlipidemia Significant Medications statin 05/02/2017 None hyperlipidemia Alleviating Factors medication 05/02/2017 None hyperlipidemia Exacerbating Factors diet 05/02/2017 None diabetes mellitus Glucose monitoring occasional glucose testing 05/02/2017 few times a week Annual Medicare Wellness Exam Alcohol Use does not drink any alcohol 01/03/2017 None Annual Medicare Wellness Exam Aspirin Use yes 01/03/2017 None Annual Medicare Wellness Exam Blood Glucose (self reported) don't know 01/03/2017 None Annual Medicare Wellness Exam Blood Pressure (self reported ) high (140/90 or higher) 01/03/2017 None Annual Medicare Wellness Exam Cholesterol (self reported) desireable (below 200) 01/03/2017 None Annual Medicare Wellness Exam Depression (last 6 months) almost never 01/03/2017 None Annual Medicare Wellness Exam Depression or Hopelessness almost never 01/03/2017 None Annual Medicare Wellness Exam Describe Your Health good 01/03/2017 None Annual Medicare Wellness Exam Exercise Habits does not exercise 01/03/2017 None Annual Medicare Wellness Exam Handling Stress often has problems coping 01/03/2017 None Annual Medicare Wellness Exam Hemaglobin A-1C (self reported ) don't know 01/03/2017 None Annual Medicare Wellness Exam Hours of Sleep 6 01/03/2017 None Annual Medicare Wellness Exam Interaction with Friends yes 01/03/2017 None Annual Medicare Wellness Exam Interests & Pleasure most of the time 01/03/2017 None Annual Medicare Wellness Exam Life Satisfaction satisfied 01/03/2017 None Annual Medicare Wellness Exam Motor Vehicle Safety always fastens seat belt: _ 01/03/2017 None Annual Medicare Wellness Exam Motor Vehicle Safety drives after drinking: n 01/03/2017 None Annual Medicare Wellness Exam Motor Vehicle Safety rides with someone who has been drinking: n 2016 None Annual Medicare Wellness Exam Nutrition servings of fried food / high fat foods per day: 2 2016 None Annual Medicare Wellness Exam Nutrition servings of high fiber / whole grain per day: 1 01/03/2017 None Annual Medicare Wellness Exam Nutrition servings of vegetables / fruit per day: 1 01/03/2017 None Annual Medicare Wellness Exam Smoking and Tobacco Use non smoker 01/03/2017 None Annual Medicare Wellness Exam Social & Emotional Support usually 01/03/2017 None Annual Medicare Wellness Exam Stress almost never 01/03/2017 None Annual Medicare Wellness Exam Sun Exposure protects skin when outdoors: y 01/03/2017 None diabetes mellitus Onset of Symptom onset as an adult 01/01/2017 None diabetes mellitus Quality non-insulin dependent 01/01/2017 None diabetes mellitus Severity moderate 01/01/2017 None diabetes mellitus Alleviating Factors medication 01/01/2017 None diabetes mellitus Exacerbating Factors diet 01/01/2017 None diabetes mellitus Pertinent Findings Denies dizziness 01/01/2017 None diabetes mellitus Pertinent Findings Denies dyspnea 01/01/2017 None diabetes mellitus Pertinent Findings Denies nausea 01/01/2017 None hypertension Quality chronic 01/01/2017 None hypertension Onset and Resolution ongoing 01/01/2017 None hypertension Onset of Symptom during adulthood 01/01/2017 None hypertension Blood Pressure Values patient checking blood pressure at home - did not bring in readings 01/01/2017 -Checks occasionally hypertension Alleviating Factors medication 01/01/2017 None hypertension Pertinent Findings Denies dizziness 01/01/2017 None hypertension Pertinent Findings Denies dyspnea 01/01/2017 None hypertension Pertinent Findings edema 01/01/2017 -occasionally- decreases during the night hyperlipidemia Onset and Resolution gradual in onset 01/01/2017 None hyperlipidemia Onset and Resolution ongoing 01/01/2017 None hyperlipidemia Onset of Symptom during adulthood 01/01/2017 None hyperlipidemia Significant Medications statin 01/01/2017 None hyperlipidemia Alleviating Factors medication 01/01/2017 None hyperlipidemia Exacerbating Factors diet 01/01/2017 None diabetes mellitus Test results Pt checking blood glucose at home, see scanned readings 2016 None diabetes mellitus Glucose monitoring occasional glucose testing 01/01/2017 None diabetes mellitus Onset of Symptom onset as an adult 07/03/2016 None diabetes mellitus Quality non-insulin dependent 07/03/2016 None diabetes mellitus Severity moderate 07/03/2016 None diabetes mellitus Pertinent Findings Denies dizziness 07/03/2016 None diabetes mellitus Pertinent Findings Denies nausea 07/03/2016 None hypertension Quality chronic 07/03/2016 None hypertension Onset and Resolution ongoing 07/03/2016 None hypertension Pertinent Findings Denies dizziness 07/03/2016 None hypertension Pertinent Findings Denies dyspnea 07/03/2016 None hypertension Pertinent Findings edema 07/03/2016 -decreases when he elevates his legs hypertension Onset of Symptom during adulthood 07/03/2016 None hypertension Blood Pressure Values patient checking blood pressure at home - did not bring in readings 07/03/2016 None hypertension Alleviating Factors medication 07/03/2016 None hyperlipidemia Onset and Resolution gradual in onset 07/03/2016 None hyperlipidemia Onset and Resolution ongoing 07/03/2016 None hyperlipidemia Onset of Symptom during adulthood 07/03/2016 None hyperlipidemia Alleviating Factors medication 07/03/2016 None hyperlipidemia Exacerbating Factors diet 07/03/2016 None diabetes mellitus Test results Pt checking blood glucose at home, see scanned readings 2015 None diabetes mellitus Glucose monitoring occasional glucose testing 07/03/2016 None diabetes mellitus Alleviating Factors medication 07/03/2016 None diabetes mellitus Exacerbating Factors diet 07/03/2016 None diabetes mellitus Pertinent Findings Denies dyspnea 07/03/2016 None hyperlipidemia Significant Medications statin 07/03/2016 None diabetes mellitus Onset of Symptom onset as an adult 02/28/2016 None diabetes mellitus Quality non-insulin dependent 02/28/2016 None diabetes mellitus Severity moderate 02/28/2016 None diabetes mellitus Pertinent Findings Denies dizziness 02/28/2016 None diabetes mellitus Pertinent Findings Denies nausea 02/28/2016 None diabetes mellitus Pertinent Findings Denies polyphagia 02/28/2016 None diabetes mellitus Pertinent Findings Denies polyuria 02/28/2016 None hypertension Quality chronic 02/28/2016 None hypertension Quality stable 02/28/2016 None hypertension Onset and Resolution ongoing 02/28/2016 None diabetes mellitus Glucose monitoring daily 02/28/2016 None hypertension Blood Pressure Values not checking blood pressure at home 02/28/2016 None hypertension Pertinent Findings Denies anxiety 02/28/2016 None hypertension Pertinent Findings Denies dizziness 02/28/2016 None hypertension Pertinent Findings Denies dyspnea 02/28/2016 None hypertension Pertinent Findings Denies edema 02/28/2016 None Annual Medicare Wellness Exam Alcohol Use does not drink any alcohol 11/17/2015 None Annual Medicare Wellness Exam Aspirin Use yes 11/17/2015 None Annual Medicare Wellness Exam Blood Glucose (self reported) don't know 11/17/2015 None Annual Medicare Wellness Exam Blood Pressure (self reported ) borderline (120/80 - 139/89) 11/17/2015 None Annual Medicare Wellness Exam Cholesterol (self reported) don't know 11/17/2015 None Annual Medicare Wellness Exam Depression (last 6 months) almost never 11/17/2015 None Annual Medicare Wellness Exam Depression or Hopelessness almost never 11/17/2015 None Annual Medicare Wellness Exam Describe Your Health good 11/17/2015 None Annual Medicare Wellness Exam Exercise Habits exercises 7 days per week 11/17/2015 None Annual Medicare Wellness Exam Exercise Habits exercises 60 minutes per day 11/17/2015 None Annual Medicare Wellness Exam Handling Stress usually sascha effectively 11/17/2015 None Annual Medicare Wellness Exam Hemaglobin A-1C (self reported ) don't know 11/17/2015 None Annual Medicare Wellness Exam Hours of Sleep 6 11/17/2015 None Annual Medicare Wellness Exam Interaction with Friends yes 11/17/2015 None Annual Medicare Wellness Exam Interests & Pleasure most of the time 11/17/2015 None Annual Medicare Wellness Exam Life Satisfaction very satisfied 11/17/2015 None Annual Medicare Wellness Exam Motor Vehicle Safety always fastens seat belt: _ 11/17/2015 None Annual Medicare Wellness Exam Motor Vehicle Safety drives after drinking: n 11/17/2015 None Annual Medicare Wellness Exam Motor Vehicle Safety rides with someone who has been drinking: n 2015 None Annual Medicare Wellness Exam Nutrition servings of fried food / high fat foods per day: 1 2015 None Annual Medicare Wellness Exam Nutrition servings of high fiber / whole grain per day: 1 11/17/2015 None Annual Medicare Wellness Exam Nutrition servings of vegetables / fruit per day: 1 11/17/2015 None Annual Medicare Wellness Exam Social & Emotional Support always 11/17/2015 None Annual Medicare Wellness Exam Stress some of the time 11/17/2015 None Annual Medicare Wellness Exam Sun Exposure protects skin when outdoors: y 11/17/2015 None diabetes mellitus Onset of Symptom onset as an adult 08/19/2015 None diabetes mellitus Quality non-insulin dependent 08/19/2015 None diabetes mellitus Severity moderate 08/19/2015 None diabetes mellitus Pertinent Findings Denies dizziness 08/19/2015 None diabetes mellitus Pertinent Findings Denies nausea 08/19/2015 None diabetes mellitus Pertinent Findings Denies polyphagia 08/19/2015 None diabetes mellitus Pertinent Findings Denies polyuria 08/19/2015 None diabetes mellitus Blood glucose levels between 60 and 120 08/19/2015 None diabetes mellitus Test results Pt checking blood glucose at home, see scanned readings 2014 None diabetes mellitus Onset of Symptom onset as an adult 02/18/2015 None diabetes mellitus Quality non-insulin dependent 02/18/2015 None diabetes mellitus Severity moderate 02/18/2015 None diabetes mellitus Pertinent Findings Denies dizziness 02/18/2015 None diabetes mellitus Pertinent Findings Denies nausea 02/18/2015 None diabetes mellitus Pertinent Findings Denies polyphagia 02/18/2015 None diabetes mellitus Pertinent Findings Denies polyuria 02/18/2015 None diabetes mellitus Test results Pt checking blood glucose at home, see scanned readings 2014 None diabetes mellitus Onset of Symptom onset as an adult 07/23/2014 None diabetes mellitus Quality non-insulin dependent 07/23/2014 None diabetes mellitus Severity moderate 07/23/2014 None diabetes mellitus Test results Pt checking blood glucose readings, did not bring results to clinic 07/23/2014 None diabetes mellitus Glucose monitoring daily 07/23/2014 None diabetes mellitus Exercise minimal exercise 07/23/2014 None diabetes mellitus Pertinent Findings Denies dizziness 07/23/2014 None diabetes mellitus Pertinent Findings Denies nausea 07/23/2014 None diabetes mellitus Pertinent Findings Denies polyphagia 07/23/2014 None diabetes mellitus Pertinent Findings Denies polyuria 07/23/2014 None diabetes mellitus Quality non-insulin dependent 03/24/2014 None diabetes mellitus Test results Pt checking blood glucose at home, see scanned readings 2013 None diabetes mellitus Onset of Symptom onset as an adult 03/24/2014 None diabetes mellitus Severity moderate 03/24/2014 None diabetes mellitus Test results HgbA1c level 6.3 03/24/2014 None diabetes mellitus Exercise minimal exercise 03/24/2014 None diabetes mellitus Quality non-insulin dependent 11/25/2013 None diabetes mellitus Quality stable 11/25/2013 None hypertension Quality chronic 11/25/2013 None hypertension Onset and Resolution ongoing 11/25/2013 None hypertension Blood Pressure Values patient checking blood pressure at home - did not bring in readings 11/25/2013 dr berumen increased metoprolol to 25mg 2 q am and 1 every roxann diabetes mellitus Quality NIDDM 11/25/2013 None diabetes mellitus Pertinent Findings Denies dizziness 11/25/2013 None diabetes mellitus Pertinent Findings Denies dyspnea 11/25/2013 None diabetes mellitus Pertinent Findings Denies nausea 11/25/2013 None diabetes mellitus Pertinent Findings Denies vomiting 11/25/2013 None hypertension Quality stable 11/25/2013 None hypertension Blood Pressure Values pt checking blood pressure - see scanned document 11/25/2013 None hypertension Pertinent Findings Denies dizziness 11/25/2013 None hypertension Pertinent Findings Denies dyspnea 11/25/2013 None hypertension Pertinent Findings edema 11/25/2013 None hypertension Pertinent Findings Denies orthostatic hypotension 11/25/2013 None hypertension Pertinent Findings Denies palpitations 11/25/2013 None hypertension Pertinent Findings Denies tachycardia 11/25/2013 None diabetes mellitus Onset of Symptom onset as an adult 11/25/2013 None diabetes mellitus Test results Pt checking blood glucose at home, see scanned readings 2013 None diabetes mellitus Glucose monitoring daily 11/25/2013 None hypertension Severity mild 11/25/2013 None diabetes mellitus Quality non-insulin dependent 07/22/2013 None diabetes mellitus Quality NIDDM 07/22/2013 None diabetes mellitus Test results Pt checking blood glucose at home, see scanned readings 2012 None diabetes mellitus Glucose monitoring daily 07/22/2013 None diabetes mellitus Pertinent Findings Denies dizziness 07/22/2013 None diabetes mellitus Pertinent Findings Denies dyspnea 07/22/2013 None diabetes mellitus Pertinent Findings Denies nausea 07/22/2013 None diabetes mellitus Pertinent Findings Denies vomiting 07/22/2013 None hypertension Quality chronic 07/22/2013 None hypertension Quality stable 07/22/2013 None hypertension Onset and Resolution ongoing 07/22/2013 None hypertension Blood Pressure Values pt checking blood pressure - see scanned document 07/22/2013 None hypertension Pertinent Findings Denies dizziness 07/22/2013 None hypertension Pertinent Findings Denies dyspnea 07/22/2013 None hypertension Pertinent Findings edema 07/22/2013 None hypertension Pertinent Findings Denies orthostatic hypotension 07/22/2013 None hypertension Pertinent Findings Denies palpitations 07/22/2013 None hypertension Pertinent Findings Denies tachycardia 07/22/2013 None diabetes mellitus Quality non-insulin dependent 04/22/2013 None diabetes mellitus Quality NIDDM 04/22/2013 None diabetes mellitus Test results Pt checking blood glucose at home, see scanned readings 2012 None diabetes mellitus Blood glucose levels greater than 120 04/22/2013 None diabetes mellitus Glucose monitoring daily 04/22/2013 None diabetes mellitus Pertinent Findings Denies dizziness 04/22/2013 None diabetes mellitus Pertinent Findings Denies dyspnea 04/22/2013 None diabetes mellitus Pertinent Findings Denies nausea 04/22/2013 None diabetes mellitus Pertinent Findings Denies numbness 04/22/2013 None diabetes mellitus Pertinent Findings Denies tingling 04/22/2013 None diabetes mellitus Nutrition regular diet 04/22/2013 None diabetes mellitus Quality non-insulin dependent 01/21/2013 None diabetes mellitus Glucose monitoring daily 01/21/2013 None diabetes mellitus Test results Pt checking blood glucose at home, see scanned readings 2012 None diabetes mellitus Pertinent Findings Denies dizziness 01/21/2013 None diabetes mellitus Pertinent Findings Denies lethargy 01/21/2013 None diabetes mellitus Pertinent Findings Denies numbness 01/21/2013 None diabetes mellitus Pertinent Findings Denies tingling 01/21/2013 None diabetes mellitus Nutrition regular diet 01/21/2013 None diabetes mellitus Exercise no exercise 01/21/2013 None diabetes mellitus Quality non-insulin dependent 10/22/2012 None hypertension Quality chronic 10/22/2012 None hypertension Onset and Resolution ongoing 10/22/2012 None hypertension Blood Pressure Values pt checking blood pressure - see scanned document 10/22/2012 None hypertension Triggers stress 10/22/2012 None hypertension Alleviating Factors medication 10/22/2012 None hypertension Exacerbating Factors change in dietary habits 10/22/2012 None hypertension Exacerbating Factors stress 10/22/2012 None hypertension Pertinent Findings Denies anxiety 10/22/2012 None hypertension Pertinent Findings Denies decreased energy 10/22/2012 None hypertension Pertinent Findings Denies dizziness 10/22/2012 None diabetes mellitus Severity mild 10/22/2012 None diabetes mellitus Quality chronic 10/22/2012 None diabetes mellitus Alleviating Factors medication 10/22/2012 None diabetes mellitus Alleviating Factors diet 10/22/2012 None diabetes mellitus Pertinent Findings Denies dizziness 10/22/2012 None diabetes mellitus Pertinent Findings Denies lethargy 10/22/2012 None diabetes mellitus Pertinent Findings Denies nausea 10/22/2012 None hypertension Quality chronic 09/12/2012 None hypertension Onset and Resolution ongoing 09/12/2012 None hypertension Blood Pressure Values pt checking blood pressure - see scanned document 09/12/2012 None diabetes mellitus Test results Pt checking blood glucose readings, did not bring results to clinic 09/12/2012 None hypertension Triggers stress 09/12/2012 None hypertension Alleviating Factors medication 09/12/2012 None hypertension Exacerbating Factors change in dietary habits 09/12/2012 None hypertension Exacerbating Factors stress 09/12/2012 None hypertension Pertinent Findings Denies anxiety 09/12/2012 None hypertension Pertinent Findings Denies decreased energy 09/12/2012 None hypertension Pertinent Findings Denies dizziness 09/12/2012 None hypertension Quality chronic 07/23/2012 None hypertension Onset and Resolution ongoing 07/23/2012 None diabetes mellitus Quality non-insulin dependent 07/23/2012 None diabetes mellitus Test results Pt checking blood glucose at home, see scanned readings 2011 None diabetes mellitus Severity mild 07/23/2012 None diabetes mellitus Alleviating Factors medication 07/23/2012 None diabetes mellitus Alleviating Factors diet 07/23/2012 None diabetes mellitus Pertinent Findings Denies dizziness 07/23/2012 None diabetes mellitus Pertinent Findings Denies lethargy 07/23/2012 None diabetes mellitus Pertinent Findings Denies nausea 07/23/2012 None diabetes mellitus Quality chronic 07/23/2012 None hypertension Blood Pressure Values pt checking blood pressure - see scanned document 07/23/2012 None hypertension Severity mild 07/23/2012 None hypertension Triggers stress 07/23/2012 None hypertension Alleviating Factors medication 07/23/2012 None hypertension Exacerbating Factors change in dietary habits 07/23/2012 None hypertension Exacerbating Factors stress 07/23/2012 None hypertension Pertinent Findings Denies anxiety 07/23/2012 None hypertension Pertinent Findings Denies decreased energy 07/23/2012 None hypertension Pertinent Findings Denies dizziness 07/23/2012 None diabetes mellitus Severity mild 06/12/2012 None diabetes mellitus Alleviating Factors medication 06/12/2012 None diabetes mellitus Alleviating Factors diet 06/12/2012 None diabetes mellitus Pertinent Findings Denies dizziness 06/12/2012 None diabetes mellitus Pertinent Findings Denies lethargy 06/12/2012 None diabetes mellitus Pertinent Findings Denies nausea 06/12/2012 None diabetes mellitus Quality chronic 06/12/2012 None hypertension Quality chronic 06/12/2012 None hypertension Onset and Resolution ongoing 06/12/2012 None hypertension Blood Pressure Values pt checking blood pressure - see scanned document 06/12/2012 None hypertension Severity mild 06/12/2012 None hypertension Triggers stress 06/12/2012 None hypertension Alleviating Factors medication 06/12/2012 None hypertension Exacerbating Factors change in dietary habits 06/12/2012 None hypertension Exacerbating Factors stress 06/12/2012 None hypertension Pertinent Findings Denies anxiety 06/12/2012 None hypertension Pertinent Findings Denies decreased energy 06/12/2012 None hypertension Pertinent Findings Denies dizziness 06/12/2012 None diabetes mellitus Test results Pt checking blood glucose at home, see scanned readings 2011 None hypertension Quality chronic 01/10/2012 None hypertension Onset and Resolution ongoing 01/10/2012 None hypertension Blood Pressure Values pt checking blood pressure - see scanned document 01/10/2012 None hypertension Severity mild 01/10/2012 None hypertension Triggers stress 01/10/2012 None hypertension Alleviating Factors medication 01/10/2012 None hypertension Exacerbating Factors change in dietary habits 01/10/2012 None hypertension Exacerbating Factors stress 01/10/2012 None diabetes mellitus Quality chronic 01/10/2012 None diabetes mellitus Severity mild 01/10/2012 None diabetes mellitus Test results fasting glucose 115-140 01/10/2012 None diabetes mellitus Glucose monitoring daily 01/10/2012 None diabetes mellitus Alleviating Factors medication 01/10/2012 None diabetes mellitus Alleviating Factors diet 01/10/2012 None diabetes mellitus Exercise minimal exercise 01/10/2012 None diabetes mellitus Pertinent Findings Denies dizziness 01/10/2012 None diabetes mellitus Pertinent Findings Denies lethargy 01/10/2012 None diabetes mellitus Pertinent Findings Denies nausea 01/10/2012 None hypertension Pertinent Findings Denies anxiety 01/10/2012 None hypertension Pertinent Findings Denies decreased energy 01/10/2012 None hypertension Pertinent Findings Denies dizziness 01/10/2012 None hypertension Quality chronic 09/13/2011 None hypertension Onset and Resolution ongoing 09/13/2011 None diabetes mellitus Quality chronic 09/13/2011 None hypertension Blood Pressure Values pt checking blood pressure - see scanned document 09/13/2011 None hypertension Severity mild 09/13/2011 None hypertension Triggers stress 09/13/2011 None hypertension Alleviating Factors medication 09/13/2011 None hypertension Exacerbating Factors stress 09/13/2011 None hypertension Exacerbating Factors change in dietary habits 09/13/2011 None diabetes mellitus Onset of Symptom onset as an adult 09/13/2011 None diabetes mellitus Test results Pt checking blood glucose at home, see scanned readings 2010 None diabetes mellitus Exercise minimal exercise 09/13/2011 None mole check Location-Major in the groin area 08/09/2011 None mole check Quality changing 08/09/2011 getting darker - possibly growing mole check Color brown 08/09/2011 None mole check Quality flaking 08/09/2011 None mole check Changing Moles changing 08/09/2011 None mole check Changing Moles changing color 08/09/2011 None mole check Changing Moles becoming thicker 08/09/2011 None mole check Changing Moles becoming painful 08/09/2011 None mole check Onset and Resolution ongoing 08/09/2011 None mole check Severity moderate 08/09/2011 None mole check Prior Treatments previously untreated 08/09/2011 None mole check Triggers no known triggers 08/09/2011 None Advance Directives No Advance Directive data Encounters Encounter Performer Location Codes Date ([id number]) 11294 EST. PATIENT, LEVEL IV Diagnosis: Type 2 diabetes mellitus with hyperglycemia[ICD10: E11.65] Diagnosis: Mixed hyperlipidemia[ICD10: E78.2] Diagnosis: Essential (primary) hypertension[ICD10: I10] Ambreen Kaur MD, [facility] CPT-4: 62539 10/24/2017 ([id number]) 51852 EST. PATIENT, LEVEL IV Diagnosis: Type 2 diabetes mellitus without complications[ICD10: E11.9] Diagnosis: Mixed hyperlipidemia[ICD10: E78.2] Diagnosis: Essential (primary) hypertension[ICD10: I10] [facility] CPT-4: 61352 05/02/2017 ([id number]) 30473 EST. PATIENT, LEVEL IV Diagnosis: Essential (primary) hypertension[ICD10: I10] Diagnosis: Type 2 diabetes mellitus with hyperglycemia[ICD10: E11.65] Diagnosis: Mixed hyperlipidemia[ICD10: E78.2] [facility] CPT-4: 90106 01/01/2017 [id number]) 16136 EST. PATIENT, LEVEL IV Diagnosis: Type 2 diabetes mellitus without complications[ICD10: E11.9] Diagnosis: Essential (primary) hypertension[ICD10: I10] Diagnosis: Mixed hyperlipidemia[ICD10: E78.2] Diagnosis: Encounter for immunization[ICD10: Z23] Ambreen Kaur MD, [facility] CPT-4: 50793 07/03/2016 ([id number]) 85713 EST. PATIENT, LEVEL IV Diagnosis: Type 2 diabetes mellitus without complications[ICD10: E11.9] Diagnosis: Essential (primary) hypertension[ICD10: I10] Diagnosis: Mixed hyperlipidemia[ICD10: E78.2] Ambreen Kaur MD [facility] CPT-4: 69488 02/28/2016 ([id number]) 40462 EST. PATIENT, LEVEL IV Diagnosis: Type 2 diabetes mellitus without complications[ICD10: E11.9] Diagnosis: Essential (primary) hypertension[ICD10: I10] Ambreen Kaur MD [facility] CPT-4: 57367 08/19/2015 ([id number]) 92296 EST. PATIENT, LEVEL IV Diagnosis: DIABETES TYPE II[ICD9: 250.00] Diagnosis: ESSENTIAL HYPERTENSION[ICD9: 401.9] Diagnosis: HYPERLIPIDEMIA[ICD9: 272.4] Ambreen Kaur MD [facility] CPT- 4: 64300 02/18/2015 ([id number]) 53025 EST. PATIENT, LEVEL IV Diagnosis: DIABETES TYPE II[ICD9: 250.00] Diagnosis: ESSENTIAL HYPERTENSION[ICD9: 401.9] Ambreen Kaur MD [facility] CPT-4: 07576 07/23/2014 ([id number]) 99060 EST. PATIENT, LEVEL IV Diagnosis: DIABETES TYPE II[SNOMED: 141319850] Diagnosis: ESSENTIAL HYPERTENSION[SNOMED: 12978922] Diagnosis: HYPERLIPIDEMIA[ICD9: 272.4] Ambreen Kaur MD [facility] CPT- 4: 55777 03/24/2014 ([id number]) 77809 EST. PATIENT, LEVEL IV Diagnosis: DIABETES TYPE II[SNOMED: 898127367] Diagnosis: ESSENTIAL HYPERTENSION[SNOMED: 12135281] Diagnosis: HYPERLIPIDEMIA[ICD9: 272.4] Diagnosis: Fatigue[ICD9: 780.79] Ambreen Kaur MD [facility] CPT-4: 98325 11/25/2013 ([id number]) 55608 EST. PATIENT, LEVEL III Diagnosis: DIABETES TYPE II[SNOMED: 846706828] Diagnosis: ESSENTIAL HYPERTENSION[SNOMED: 19132046] Ambreen Kaur MD [facility] CPT-4: 10221 07/22/2013 ([id number]) Miscellaneous no charge Diagnosis: ESSENTIAL HYPERTENSION[SNOMED: 04811453] Diagnosis: DIABETES TYPE II[SNOMED: 163685232] Ambreen Kaur MD [facility] CPT-4: 28012 06/18/2013 ([id number]) 13740 EST. PATIENT, LEVEL III Diagnosis: ESSENTIAL HYPERTENSION[SNOMED: 77072976] Diagnosis: DIABETES TYPE II[SNOMED: 021996416] Ambreen Kaur MD [facility] CPT-4: 63950 04/22/2013 ([id number]) 27743 EST. PATIENT, LEVEL IV Diagnosis: ESSENTIAL HYPERTENSION[SNOMED: 25074488] Diagnosis: DIABETES TYPE II[SNOMED: 781074731] Ambreen Kaur MD [facility] CPT-4: 27779 01/21/2013 ([id number]) 68220 EST. PATIENT, LEVEL IV Diagnosis: ESSENTIAL HYPERTENSION[SNOMED: 06003386] Diagnosis: DIABETES TYPE II[SNOMED: 019084838] Ambreen Kaur MD [facility] CPT-4: 64038 09/12/2012 ([id number]) 41697 EST. PATIENT, LEVEL IV Diagnosis: ESSENTIAL HYPERTENSION[SNOMED: 08329319] Diagnosis: DIABETES TYPE II[SNOMED: 675223774] Ambreen Kaur MD [facility] CPT-4: 00785 07/23/2012 ([id number]) 95384 EST. PATIENT, LEVEL III Diagnosis: DIABETES TYPE II[SNOMED: 347576663] Diagnosis: ESSENTIAL HYPERTENSION[SNOMED: 77174289] Ambreen Kaur MD [facility] CPT-4: 94131 06/12/2012 ([id number]) 47588 EST. PATIENT, LEVEL IV Diagnosis: ESSENTIAL HYPERTENSION[SNOMED: 91552417] Diagnosis: DIABETES TYPE II[SNOMED: 067481295] Diagnosis: History of colon cancer[ICD9: V10.05] Ambreen Kaur MD [facility] CPT-4: 79802 01/10/2012 11904 EST. PATIENT, LEVEL IV Diagnosis: ESSENTIAL HYPERTENSION[SNOMED: 00301201] Diagnosis: DIABETES TYPE II[SNOMED: 608302796] Diagnosis: Dry skin[ICD9: 782.9] [facility] CPT-4: 18944 09/13/2011 87151 EST. PATIENT, LEVEL III Diagnosis: ESSENTIAL HYPERTENSION[SNOMED: 50987448] Diagnosis: Actinic keratosis[ICD9: 702.0] Diagnosis: Seborrheic keratosis, inflamed[ICD9: 702.11] [facility] CPT-4: 93986 08/09/2011 Plan of Care Planned Activity Notes Codes Status Date Appointment: Ambreen Kaur WPtel: [phone] [facility] [place] (15 min) Moderate 10/24/2017 Patient Education: Patient Medication Summary Completed 10/24/2017 Patient Education: Patient Medication Summary Completed 10/16/2017 Appointment: Ambreen Kaur WPtel: [phone] [facility] (15 min) Moderate 05/02/2017 Patient Education: Patient Medication Summary Completed 05/02/2017 Patient Education: Patient Medication Summary Completed 04/25/2017 Appointment: [phone] [facility] [place] [facility] - Annual Wellness Visit 01/03/2017 Patient Education: Patient Medication Summary Completed 01/03/2017 Appointment: Ambreen Kaur WPtel: [phone] [facility] [place] [address] [place] (15 min) Moderate 01/01/2017 Patient Education: Patient Medication Summary Completed 01/01/2017 Patient Education: Obesity Completed 01/01/2017 Patient Education: Patient Medication Summary Completed 12/25/2016 Appointment: Ambreen Kaur WPtel: [phone] [facility] [place] [address] [place] (15 min) Moderate 07/03/2016 Patient Education: Patient Medication Summary Completed 07/03/2016 Patient Education: Patient Medication Summary Completed 06/27/2016 Patient Education: Patient Medication Summary Completed 02/28/2016 Appointment: Ambreen Kaur WPtel: [phone] [facility] [place] (15 min) Moderate 02/21/2016 Patient Education: Patient Medication Summary Completed 02/21/2016 Patient Education: Patient Medication Summary Completed 11/17/2015 Patient Education: Patient Medication Summary Completed 08/19/2015 Patient Education: Hypertension Completed 08/19/2015 Appointment: Ambreen Kaur WPtel: [facility] [place] Follow up 02/18/2015 Patient Education: Patient Medication Summary Completed 02/18/2015 Patient Education: Hypertension Completed 02/18/2015 Appointment: Ambreen Kaur WPtel: [facility] [place] [address] Follow up 07/23/2014 Patient Education: Patient Medication Summary Completed 07/23/2014 Patient Education: Hypertension Completed 07/23/2014 Appointment: Ambreen Kaur WPtel: [address] [place], [place] [phone] Follow up 03/24/2014 Patient Education: Patient Medication Summary Completed 03/24/2014 Patient Education: Hypertension Completed 03/24/2014 Appointment: Ambreen Kaur WPtel: [address] [place] [address] Follow up 11/25/2013 Patient Education: Patient Medication Summary Completed 11/25/2013 Patient Education: Hypertension Completed 11/25/2013 Appointment: Ambreen Kaur WPtel: [facility] [place] [address] Injection 08/07/2013 Patient Education: Patient Medication Summary Completed 08/07/2013 Appointment: Ambreen Kaur WPtel: [address] [place] [address] [place] Follow up 07/22/2013 Patient Education: Patient Medication Summary Completed 07/22/2013 Patient Education: Hypertension Completed 07/22/2013 Appointment: Ambreen Kaur WPtel: [facility] [place] [address] [place] Lab Draw 06/18/2013 Appointment: Ambreen Kaur WPtel: [facility] [place] [address] [place] weight check 06/18/2013 Patient Education: Patient Medication Summary Completed 06/18/2013 Patient Education: Hypertension Completed 06/18/2013 Patient Education: Patient Medication Summary Completed 05/20/2013 Appointment: Ambreen Kaur WPtel: [address] [place], [place] [phone] Follow up 04/22/2013 Patient Education: Patient Medication Summary Completed 04/22/2013 Patient Education: Hypertension Completed 04/22/2013 Appointment: Ambreen Kaur WPtel: [address] [place] [phone] Follow up 01/21/2013 Patient Education: Patient Medication Summary Completed 01/21/2013 Patient Education: Hypertension Completed 01/21/2013 Appointment: Ambreen Kaur WPtel: [address] [place] [phone] Follow up 10/22/2012 Patient Education: Patient Medication Summary Completed 10/22/2012 Patient Education: Hypertension Completed 10/22/2012 Appointment: Ambreen Kaur WPtel: [address] [place] [phone] Follow up 09/12/2012 Patient Education: Patient Medication Summary Completed 09/12/2012 Patient Education: High Blood Pressure: Essential Hypertension Completed 2011 Appointment: Ambreen Kaur WPtel: [address] [place] [phone] Follow up 07/23/2012 Patient Education: Patient Medication Summary Completed 07/23/2012 Patient Education: High Blood Pressure: Essential Hypertension Completed 2011 Appointment: Ambreen Kaur WPtel: [address] [place] [phone] Follow up 06/12/2012 Patient Education: Patient Medication Summary Completed 06/12/2012 Patient Education: High Blood Pressure: Essential Hypertension Completed 2011 Appointment: Ambreen Kaur WPtel: [address] [place] [phone] Other 01/10/2012 Patient Education: Patient Medication Summary Completed 01/10/2012 Patient Education: High Blood Pressure: Essential Hypertension Completed 2011 Appointment: Ambreen Kaur WPtel: [address] [place] [phone] Other 09/13/2011 Patient Education: Patient Medication Summary Completed 09/13/2011 Patient Education: High Blood Pressure: Essential Hypertension Completed 2010 Appointment: Ambreen Kaur WPtel: [phone] [facility] [place] [address] Other 08/09/2011 Patient Education: Patient Medication Summary Completed 08/09/2011 Patient Education: High Blood Pressure: Essential Hypertension Completed 2010 Instructions No Instructions
[2018-07-01] MEDS ORDERED: NS IV 500 ML 500 ML IV PRN (09:39)
--- OUTSIDE RECORDS SUMMARY | 2018-07-01 09:41 | XMS REPORT ---
Author Author FRANCESCA ETIENNE [facility] Address [address] [place] [address] Care Team Providers Care Dry Starch Operator Name Role Phone JAIMIEFRANCESCA Unavailable PROBLEMS Type Condition ICD9-CM Code [id number] Code Onset Dates Condition Status SNOMED Code Problem Need for prophylactic vaccination and inoculation, Influenza V04.81 Active 180546358 Problem DTAP TEST V06.1 Active Problem Health examination of defined subpopulation V70.5 Active [id number] ALLERGIES No Information ENCOUNTERS Encounter Location Date Diagnosis [facility] [id number] [place] [phone] Jun, [facility] [id number] [place] [phone] Jan, [facility] [id number] [place] [phone] Jan, [facility] [id number] [place] [phone] Aug, [facility] [id number] [place] [address] [phone][address] [phone] Aug, [facility] [id number] [place] [address] [phone] Sep, [facility] [id number] [place] [address] [phone] Sep, [facility] [id number] [place] [address] [phone] Apr, IMMUNIZATIONS No Known Immunizations SOCIAL HISTORY Never Assessed REASON FOR VISIT eye exam PLAN OF CARE VITAL SIGNS MEDICATIONS Unknown Medications RESULTS No Results PROCEDURES No Known procedures INSTRUCTIONS MEDICATIONS ADMINISTERED No Known Medications
--- OUTSIDE RECORDS SUMMARY | 2018-07-01 09:41 | XMS REPORT ---
Author Author ZEKE OLIVARES Organization [facility] Address [address] [place] [address] Care Team Providers Care Balance Engineer Name Role Phone ZEKE OLIVARES Unavailable PROBLEMS Unknown Problems ALLERGIES No Known Allergies ENCOUNTERS Encounter Location Date Diagnosis [facility] [address] [phone] Mar, Laceration of skin of right eyelid and periocular area, initial encounter S01.111A [facility] [id number] [place] [phone] Jun, [facility] [id number] [place] [address] [phone] Jan, [facility] [id number] [place] [address] [phone] Jan, [facility] [id number] [place] [address] [phone] Aug, [facility] [id number] [place] [address] [phone] Aug, [facility] [id number] [place] [address] [phone]- [phone] Sep, [facility] [id number] [place] [address] [phone] Sep, [facility] [id number] [place] [address] [phone] Apr, IMMUNIZATIONS No Known Immunizations SOCIAL HISTORY Never Assessed 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 JStrasserRN PLAN OF CARE Activity Details Follow Up prn Reason:head laceration VITAL SIGNS Height 66 in 2018-04-09 Respiratory Rate 20 2018-04-09 MEDICATIONS Medication Instructions Dosage Frequency Start Date End Date Duration Status Lisinopril 40 mg take 1 tablet (40 mg) by oral route once daily Sep Active B Complex 1 1 Tablet 1 time per day Sep, Active GlipiZIDE 5 mg take 1 tablet (5 mg) by oral route 2 times per day before meals 12h Sep, Active Aspirin 81 mg take 1 tablet (81 mg) by oral route once daily Sep, Active Fish Oil 1000 MG Orally Once a day 1 capsule 24h Active amlodipine 10 mg take 1 tablet (10 mg) by oral route once daily Sep Active Potassium Chloride 10 mEq 1 tablet by Oral route 1 time per day Sep Active Magnesium Oxide 400 mg 1 tablet by Oral route 1 time per day Sep, Active metformin 1,000 mg take 1 tablet by Oral route with morning and evening meals 2 times per day will need labs before further refills Sep, Active atorvastatin 40 mg take 1 tablet by Oral route at bedtime 1 time per day Avoid grapefruit juice Sep, Active Metoprolol Tartrate 100 MG Orally every 12 hrs 1 Tablet by Oral route 2 daily 12h Sep, Active Doxazosin Mesylate 1 MG Orally Once a day 1 tablet 24h Active RESULTS No Results PROCEDURES Procedure Date Ordered Result Body Site [facility] VISIT ESTABLISHED PATIENT April 09, 2018 INSTRUCTIONS MEDICATIONS ADMINISTERED No Known Medications
--- OUTSIDE RECORDS SUMMARY | 2018-07-01 09:41 | XMS REPORT | CCD ---
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 Role Phone PP Unavailable CCM Unavailable Summary Purpose Interface Exchange Insurance Providers Payer name Policy type / Coverage type Covered green party ID Effective Begin Date Effective End Date WPS Medicare Part B Medicare Part B [id number] 2015 Unknown [employer] Medicare Part B [id number] Unknown Family history Sister Diagnosis Age At [...] 08/27/2011 Employment Unknown Currently employed works for [employer] [place] 08/27/2011 Allergies, Adverse Reactions, Alerts Allergies, Adverse [...] Start Date Stop Date Status Fill Instructions metformin 1,000 mg tablet RxNorm: 833553 TAKE ONE TABLET BY MOUTH TWICE DAILY 11/21/2017 No Stop Date Active atorvastatin 40 mg tablet RxNorm: 523627 TAKE ONE TABLET BY MOUTH ONCE DAILY 11/07/2017 No Stop Date Active amlodipine 10 mg tablet RxNorm: 346932 TAKE ONE TABLET BY MOUTH ONCE DAILY 10/09/2017 No Stop Date Active clonidine HCl 0.3 mg tablet RxNorm: 607293 TAKE ONE TABLET BY MOUTH TWICE DAILY 08/28/2017 No Stop Date Active glipizide 5 mg tablet RxNorm: 085223 TAKE ONE TABLET BY MOUTH TWICE DAILY 08/28/2017 No Stop Date Active lisinopril 40 mg tablet RxNorm: 459948 TAKE ONE TABLET BY MOUTH ONCE DAILY 08/08/2017 08/02/2018 Active atorvastatin 40 mg tablet RxNorm: 099874 TAKE ONE TABLET BY MOUTH ONCE DAILY 07/09/2017 11/05/2017 Inactive amlodipine 10 mg tablet RxNorm: 248609 TAKE ONE TABLET BY MOUTH ONCE DAILY 06/07/2017 10/04/2017 Inactive metformin 1,000 mg tablet RxNorm: 851180 TAKE ONE TABLET BY MOUTH TWICE DAILY 05/17/2017 11/12/2017 Inactive clonidine HCl 0.3 mg tablet RxNorm: 018403 TAKE ONE TABLET BY MOUTH TWICE DAILY 04/25/2017 08/22/2017 Inactive glipizide 5 mg tablet RxNorm: 646802 TAKE ONE TABLET BY MOUTH TWICE DAILY 04/25/2017 08/22/2017 Inactive amlodipine 10 mg tablet RxNorm: 923938 TAKE ONE TABLET BY MOUTH ONCE DAILY 04/09/2017 06/06/2017 Inactive atorvastatin 40 mg tablet RxNorm: 720314 TAKE ONE TABLET BY MOUTH ONCE DAILY 03/08/2017 07/05/2017 Inactive clonidine HCl 0.3 mg tablet RxNorm: 348964 TAKE ONE TABLET BY MOUTH TWICE DAILY 12/18/2016 04/16/2017 Inactive glipizide 5 mg tablet RxNorm: 418923 TAKE ONE TABLET BY MOUTH TWICE DAILY 12/18/2016 04/16/2017 Inactive metformin 1,000 mg tablet RxNorm: 521325 TAKE ONE TABLET BY MOUTH TWICE DAILY 11/13/2016 05/11/2017 Inactive amlodipine 10 mg tablet RxNorm: 703434 TAKE ONE TABLET BY MOUTH ONCE DAILY 11/08/2016 04/06/2017 Inactive atorvastatin 40 mg tablet RxNorm: 018398 TAKE ONE TABLET BY MOUTH ONCE DAILY 09/11/2016 03/07/2017 Inactive lisinopril 40 mg tablet RxNorm: 049105 Tablet(s) PO TAKE ONE TABLET BY MOUTH EVERY DAY 08/08/2016 08/02/2017 Inactive amlodipine 10 mg tablet RxNorm: 080389 Tablet(s) TAKE ONE TABLET BY MOUTH EVERY DAY 05/09/2016 11/04/2016 Inactive clonidine HCl 0.3 mg tablet RxNorm: 534067 Tablet(s) TAKE ONE TABLET BY MOUTH TWICE DAILY 04/19/2016 04/18/2016 Inactive clonidine HCl 0.3 mg tablet RxNorm: 674197 Tablet(s) TAKE ONE TABLET BY MOUTH TWICE DAILY 04/19/2016 08/16/2016 Inactive atorvastatin 40 mg tablet RxNorm: 155417 Tablet(s) TAKE ONE TABLET BY MOUTH ONCE DAILY 03/09/2016 09/04/2016 Inactive lisinopril 40 mg tablet RxNorm: 257020 Tablet(s) PO TAKE ONE TABLET BY MOUTH EVERY DAY 02/28/2016 08/07/2016 Inactive [SAVINGS FOR UNINSURED PATIENTS -- BIN: [id number], PCN: [id number], Group: [id number], ID# [id number], Process claim through [employer] , for questions: . THIS IS NOT INSURANCE.] lisinopril 40 mg tablet RxNorm: 836518 TAKE ONE TABLET BY MOUTH ONCE DAILY 02/07/2016 08/04/2016 Inactive glipizide 5 mg tablet RxNorm: 460555 Tablet(s) TAKE ONE TABLET BY MOUTH TWICE A DAY 01/26/2016 11/20/2016 Inactive atorvastatin 40 mg tablet RxNorm: 197592 Tablet(s) TAKE ONE TABLET BY MOUTH ONCE DAILY 12/07/2015 03/05/2016 Inactive clonidine HCl 0.3 mg tablet RxNorm: 400593 TAKE ONE TABLET BY MOUTH TWICE DAILY 12/06/2015 04/03/2016 Inactive metformin 1,000 mg tablet RxNorm: 431513 Tablet(s) TAKE ONE TABLET BY MOUTH TWICE A DAY 10/20/2015 10/13/2016 Inactive atorvastatin 40 mg tablet RxNorm: 238701 TAKE ONE TABLET BY MOUTH ONCE DAILY 09/03/2015 12/01/2015 Inactive metoprolol succinate ER 25 mg tablet,extended release 24 hr RxNorm: 673175 1 Tablet(s) PO daily in addition to the 50mg pill one time daily 08/19/2015 07/02/2016 Inactive metoprolol succinate ER 50 mg tablet,extended release 24 hr RxNorm: 338586 1 Tablet(s) PO daily in addition to the 25mg pill for a total of 75mg daily. 08/19/2015 07/02/2016 Inactive lisinopril 40 mg tablet RxNorm: 629882 TAKE ONE TABLET BY MOUTH ONCE DAILY 08/06/2015 02/01/2016 Inactive clonidine HCl 0.3 mg tablet RxNorm: 705145 1 Tablet(s) PO BID 08/04/2015 12/01/2015 Inactive DC clonidine patch clonidine HCl 0.3 mg tablet RxNorm: 334477 1 Tablet(s) PO BID 08/04/2015 08/03/2015 Inactive clonidine HCl 0.3 mg tablet RxNorm: 578672 1 Tablet(s) PO BID 08/04/2015 08/03/2015 Inactive amlodipine 10 mg tablet RxNorm: 986308 TAKE ONE TABLET BY MOUTH EVERY DAY 07/06/2015 04/30/2016 Inactive glipizide 5 mg tablet RxNorm: 632967 TAKE ONE TABLET BY MOUTH TWICE A DAY 04/02/2015 01/25/2016 Inactive atorvastatin 40 mg tablet RxNorm: 611802 TAKE ONE TABLET BY MOUTH EVERY DAY 02/25/2015 05/03/2015 Inactive metformin 1,000 mg tablet RxNorm: 365548 TAKE ONE TABLET BY MOUTH TWICE A DAY 01/19/2015 10/19/2015 Inactive clonidine 0.3 mg/24 hr weekly transdermal patch RxNorm: 043922 APPLY 1 PATCH EVERY 5 DAYS 10/12/2014 08/03/2015 Inactive lisinopril 40 mg tablet RxNorm: 923961 Tablet(s) PO TAKE ONE TABLET BY MOUTH EVERY DAY 10/05/2014 10/04/2014 Inactive [SAVINGS FOR UNINSURED PATIENTS -- BIN: [id number], PCN: ASPROD1, Group: [id number], ID# [id number], Process claim through [employer] , for questions: . THIS IS NOT INSURANCE.] lisinopril 40 mg tablet RxNorm: 768419 TAKE ONE TABLET BY MOUTH EVERY DAY 10/05/2014 08/05/2015 Inactive atorvastatin 40 mg tablet RxNorm: 697155 TAKE ONE TABLET BY MOUTH EVERY DAY 08/28/2014 10/26/2014 Inactive amlodipine 10 mg tablet RxNorm: 413145 TAKE ONE TABLET BY MOUTH EVERY DAY 07/27/2014 06/21/2015 Inactive clonidine 0.3 mg/24 hr weekly transdermal patch RxNorm: 021974 1 q 5 days TD APPLY 1 PATCH EVERY 5 DAYS 05/27/201407/2014 Inactive clonidine 0.3 mg/24 hr weekly transdermal patch RxNorm: 095332 1 q 5 days TD APPLY 1 PATCH EVERY 5 DAYS 05/27/201409/2014 Inactive glipizide 5 mg tablet RxNorm: 020607 TAKE ONE TABLET BY MOUTH TWICE A DAY 04/23/2014 03/18/2015 Inactive clonidine 0.3 mg/24 hr weekly transdermal patch RxNorm: 038690 patch weekly TD APPLY 1 PATCH EVERY 5 DAYS 02/19/201409/2014 Inactive metformin 1,000 mg tablet RxNorm: 259924 Tablet(s) PO TAKE ONE TABLET BY MOUTH TWICE A DAY 01/09/2014 01/18/2015 Inactive atorvastatin 40 mg tablet RxNorm: 177462 Tablet(s) PO TAKE ONE TABLET BY MOUTH EVERY DAY 11/13/2013 08/27/2014 Inactive lisinopril 40 mg tablet RxNorm: 642340 Tablet(s) PO TAKE ONE TABLET BY MOUTH EVERY DAY 09/15/2013 10/04/2014 Inactive lisinopril 40 mg tablet RxNorm: 703493 Tablet(s) PO TAKE ONE TABLET BY MOUTH EVERY DAY 09/15/2013 09/14/2013 Inactive clonidine 0.3 mg/24 hr weekly transdermal patch RxNorm: 012568 patch weekly TD APPLY 1 PATCH EVERY 5 DAYS 09/08/201304/2014 Inactive amlodipine 10 mg tablet RxNorm: 316735 Tablet(s) PO TAKE ONE TABLET BY MOUTH EVERY DAY 07/18/2013 07/26/2014 Inactive glipizide 5 mg tablet RxNorm: 594567 Tablet(s) PO TAKE ONE TABLET BY MOUTH TWICE A DAY 04/07/2013 04/22/2014 Inactive metformin 1,000 mg tablet RxNorm: 493418 Tablet(s) PO TAKE ONE TABLET BY MOUTH TWICE A DAY 03/24/2013 11/20/2017 Inactive metformin 1,000 mg tablet RxNorm: 109948 Tablet(s) PO TAKE ONE TABLET BY MOUTH TWICE A DAY 03/24/2013 01/08/2014 Inactive clonidine 0.3 mg/24 hr weekly transdermal patch RxNorm: 381891 Patch Weekly TD APPLY 1 PATCH WEEKLY 03/10/20132012 Inactive clonidine 0.3 mg/24 hr Weekly Transderm Patch RxNorm: 096975 1 TD q5days change patch every 5 days. 01/21/2013 07/19/2013 Inactive atorvastatin 40 mg tablet RxNorm: 409192 1 Tablet(s) PO daily 10/22/2012 10/16/2013 Inactive metoprolol succinate ER 25 mg tablet,extended release 24 hr RxNorm: 097158 1 Tablet(s) PO BID 09/10/2012 10/04/2013 Inactive multivitamin tablet RxNorm: 1 Tablet(s) PO daily 09/09/2012 No Stop Date Active clonidine 0.3 mg/24 hr Weekly Transderm Patch RxNorm: 494469 1 TD weekly 09/09/2012 09/08/2012 Inactive clonidine 0.3 mg/24 hr Weekly Transderm Patch RxNorm: 506305 1 TD weekly 09/09/2012 01/20/2013 Inactive lisinopril 40 mg tablet RxNorm: 049221 1 Tablet(s) PO daily 09/14/2013 Inactive clonidine 0.2 mg/24 hr Weekly Transderm Patch RxNorm: 115046 1 Patch TD weekly 09/04/2012 09/08/2012 Inactive clonidine 0.2 mg/24 hr Weekly Transderm Patch RxNorm: 418813 1 TD QW 08/20/2012 08/27/2012 Inactive apply q week clonidine 0.2 mg/24 hr Weekly Transderm Patch RxNorm: 550647 1 TD QW 08/20/2012 08/19/2012 Inactive apply q week metoprolol succinate ER 25 mg tablet,extended release 24 hr RxNorm: 816451 1 Tablet(s) PO BID 08/12/2012 09/09/2012 Inactive Metanx 3 mg-35 mg-2 mg tablet RxNorm: Tablet(s) PO 08/04/2012 02/27/2016 Inactive TAKE ONE TABLET BY MOUTH TWICE A DAY metoprolol succinate ER 25 mg tablet,extended release 24 hr RxNorm: 084149 1/2 Tablet(s) PO BID 07/23/2012 08/11/2012 Inactive amlodipine 10 mg tablet RxNorm: 537833 1 Tablet(s) PO daily 12/201107/17/2013 Inactive metoprolol succinate ER 25 mg tablet,extended release 24 hr RxNorm: 943775 1/2 Tablet(s) PO daily 06/12/2012 07/22/2012 Inactive glipizide 5 mg tablet RxNorm: 683711 1 Tablet(s) PO BID 201104/06/2013 Inactive metformin 1,000 mg tablet RxNorm: 790956 1 Tablet(s) PO BID 01/23/2013 Inactive amlodipine 10 mg tablet RxNorm: 625954 1 Tablet(s) PO daily 09/201206/21/2012 Inactive Metanx 3 mg-35 mg-2 mg tablet RxNorm: 1 Tablet(s) PO BID 12/2406/21/2012 Inactive simvastatin 20 mg tablet RxNorm: 788834 1 Tablet(s) PO daily 10/22/2012 Inactive hydrochlorothiazide 25 mg Tab RxNorm: 514258 1 Tablet(s) PO daily 10/02/2011 09/03/2012 Inactive lisinopril 40 mg tablet RxNorm: 069902 1 Tablet(s) PO daily 03/201109/03/2012 Inactive lisinopril 40 mg Tab RxNorm: 942476 1 Tablet(s) PO daily 201009/18/2011 Inactive glipizide 5 mg Tab RxNorm: 203793 1 Tablet(s) PO BID 201001/28/2012 Inactive Norvasc 10 mg Tab RxNorm: 166897 1 Tablet(s) PO daily 201007/23/2012 Inactive c pap RxNorm: 1 PO QPM No Start Date Active B Complex 1 Tab RxNorm : 1 Tablet(s) PO daily No Start Date Active aspirin 81 mg Tab, Delayed Release RxNorm: 423182 1 Tablet(s) PO daily No Start Date Active metoprolol succinate ER 100 mg tablet,extended release 24 hr RxNorm: 560223 1 Tablet(s) PO daily No Start Date Active multivitamin tablet RxNorm: Oral No Start Date 09/08/2012 Inactive hydrochlorothiazide 25 mg Tab RxNorm: 136210 1 Tablet(s) PO daily No Start Date 10/01/2011 Inactive Metanx 3 mg-35 mg-2 mg Tab RxNorm: 1 PO BID No Start Date 12/24/2011 Inactive Metanx 3 mg-35 mg-2 mg tablet RxNorm: 1 Tablet(s) PO daily No Start Date 02/27/2016 Inactive clonidine 0.2 mg/24 hr Weekly Transderm Patch RxNorm: 556038 1 TD weekly No Start Date 09/03/2012 Inactive Klor-Con 10 10 mEq Tab RxNorm: 338202 1 Tablet(s) PO daily No Start Date 07/02/2016 Inactive metoprolol succinate ER 25 mg tablet,extended release 24 hr RxNorm: 206777 1/2 Tablet(s) PO daily No Start Date 2013 Inactive metoprolol succinate ER 25 mg tablet,extended release 24 hr RxNorm: 653216 2 q am 1 at hs Tablet(s) PO daily No Start Date 08/18/2015 Inactive magnesium 250 mg Tab RxNorm: 1 Tablet(s) PO BID No Start Date 07/02/2016 Inactive amlodipine 10 mg Tab RxNorm: 972320 1 Tablet(s) PO daily No Start Date 12/24/2011 Inactive lisinopril 20 mg Tab RxNorm: 751131 1 Tablet(s) PO daily No Start Date 07/23/2012 Inactive metformin 1,000 mg Tab RxNorm: 837439 1 Tablet(s) PO BID No Start Date 01/29/2012 Inactive simvastatin 20 mg Tab RxNorm: 453647 1 Tablet(s) PO daily No Start Date 10/18/2011 Inactive Medication Administered No Medication Administered data Immunizations Vaccine Codes Date Status Pneumococcal CVX: 133 11/04/2017 completed Influenza CVX: 141 07/03/2016 completed Influenza CVX: [...] ICD-9: V10.05 Dry skin ICD-9: 782.9 09/13/2011 Actinic keratosis ICD-9: 702.0 2010 Seborrheic keratosis, inflamed ICD-9: 702.11 08/09/2011 Reason For Visit Reason For Visit Effective [...] Observation Code Item Item Code Result Date %Hba1C Llt746 % HbA1c 50438-1 6.9 % 10/17/2017 %Hba1C Ghq224 Gluc Ave 151 mg/dL 10/17/2017 Cbc With Differential Ord2 WBC 6.24 K/ul 10/17/2017 Cbc With Differential Ord2 RBC 4.71 M/ul 10/17/2017 Cbc With Differential Ord2 HGB 14.2 g/dl 10/17/2017 Cbc With Differential Ord2 HCT 40.0 % 10/17/2017 Cbc With Differential Ord2 Neut% 60.3 % 10/17/2017 Cbc With Differential Ord2 MCV 84.9 fl 10/17/2017 Cbc With Differential Ord2 Lymph% 28.7 % 10/17/2017 Cbc With Differential Ord2 [place]% 7.9 % 10/17/2017 Cbc With Differential Ord2 MCH 30.1 pg 10/17/2017 Cbc With Differential Ord2 Eos% 2.6 % 10/17/2017 Cbc With Differential Ord2 MCHC 35.5 pg 10/17/2017 Cbc With Differential Ord2 Baso% 0.5 % 10/17/2017 Cbc With Differential Ord2 PLT 177 K/ul 10/17/2017 Cbc With Differential Ord2 Neut ABS# 3.77 K/ul 10/17/2017 Cbc With Differential Ord2 RDW 13.6 % 10/17/2017 Cbc With Differential Ord2 Lymph ABS# 1.79 K/ul 10/17/2017 Cbc With Differential Ord2 [place] ABS# 0.5 K/ul 10/17/2017 Cbc With Differential Ord2 Eos ABS# 0.2 K/ul 10/17/2017 Cbc With Differential Ord2 Baso ABS# 0.0 K/ul 10/17/2017 Comp Metabolic Wwm368 NA 139 mEq/L 10/17/2017 Comp Metabolic Fyf344 K 4.4 mEq/L 10/17/2017 Comp Metabolic Mds135 CL 100 mEq/L 10/17/2017 Comp Metabolic Rqu394 CO2 29.0 mEq/L 10/17/2017 Comp Metabolic Cij785 ANION GAP 14 10/17/2017 Comp Metabolic Bgi584 GLUCOSE 154 mg/dL 10/17/2017 Comp Metabolic Lcy556 Creat 1.0 mg/dL 10/17/2017 Comp Metabolic Kfy150 eGFR 76 ml/min/1.73m2 10/17/2017 Comp Metabolic Epr491 BUN 17 mg/dL 10/17/2017 Comp Metabolic Vte717 B/C Ratio 16.3 Ratio 10/17/2017 Comp Metabolic Tnd779 CALCIUM 9.6 mg/dL 10/17/2017 Comp Metabolic Wxx029 ALK PHOS 61 U/L 10/17/2017 Comp Metabolic Vlk062 AST(SGOT) 16 U/L 10/17/2017 Comp Metabolic Dpf178 ALT(SGPT) 20 U/L 10/17/2017 Comp Metabolic Ynn770 BILI T 1.0 mg/dL 10/17/2017 Comp Metabolic Jwy423 ALBUMIN 4.6 g/dL 10/17/2017 Comp Metabolic Bav005 TPRO 6.9 g/dL 10/17/2017 Comp Metabolic Xge944 GLOB 2.4 g/dL 10/17/2017 Comp Metabolic Exj328 A/G Ratio 1.9 Ratio 10/17/2017 Comp Metabolic Jkb976 Osmo 282 mOsmo 10/17/2017 Tsh Ord6 hTSH II 2.92 uIU/mL 10/17/2017 Lipid Ord30 CHOL 161 mg/dL 10/17/2017 Lipid Ord30 HDL 47.0 mg/dl 10/17/2017 Lipid Ord30 TRIG 130 mg/dL 10/17/2017 Lipid Ord30 LDL 88 mg/dL 10/17/2017 Lipid Ord30 C/HDL 3.4 Ratio 10/17/2017 Cbc With Differential Ord2 WBC 7.46 K/ul 04/25/2017 Cbc With Differential Ord2 RBC 4.94 M/ul 04/25/2017 Cbc With Differential Ord2 HGB 14.9 g/dl 04/25/2017 Cbc With Differential Ord2 Neut% 66.5 % 04/25/2017 Cbc With Differential Ord2 HCT 42.6 % 04/25/2017 Cbc With Differential Ord2 MCV 86.2 fl 04/25/2017 Cbc With Differential Ord2 Lymph% 23.5 % 04/25/2017 Cbc With Differential Ord2 MCH 30.2 pg 04/25/2017 Cbc With Differential Ord2 [place]% 8.0 % 04/25/2017 Cbc With Differential Ord2 Eos% 1.7 % 04/25/2017 Cbc With Differential Ord2 MCHC 35.0 pg 04/25/2017 Cbc With Differential Ord2 Baso% 0.3 % 04/25/2017 Cbc With Differential Ord2 PLT 195 K/ul 04/25/2017 Cbc With Differential Ord2 RDW 14.0 % 04/25/2017 Cbc With Differential Ord2 Neut ABS# 4.96 K/ul 04/25/2017 Cbc With Differential Ord2 Lymph ABS# 1.75 K/ul 04/25/2017 Cbc With Differential Ord2 [place] ABS# 0.6 K/ul 04/25/2017 Cbc With Differential Ord2 Eos ABS# 0.1 K/ul 04/25/2017 Cbc With Differential Ord2 Baso ABS# 0.0 K/ul 04/25/2017 Comp Metabolic Nfo267 NA 141 mEq/L 04/25/2017 Comp Metabolic Dfy878 K 4.1 mEq/L 04/25/2017 Comp Metabolic Naf613 CL 102 mEq/L 04/25/2017 Comp Metabolic Idm730 CO2 30.0 mEq/L 04/25/2017 Comp Metabolic Xmg426 ANION GAP 13 04/25/2017 Comp Metabolic Qeb612 GLUCOSE 134 mg/dL 04/25/2017 Comp Metabolic Zvb688 Creat 1.0 mg/dL 04/25/2017 Comp Metabolic Zxu685 eGFR 84 ml/min/1.73m2 04/25/2017 Comp Metabolic Pio929 BUN 16 mg/dL 04/25/2017 Comp Metabolic Xoc529 B/C Ratio 16.8 Ratio 04/25/2017 Comp Metabolic Ydk654 CALCIUM 9.6 mg/dL 04/25/2017 Comp Metabolic Jed325 ALK PHOS 52 U/L 04/25/2017 Comp Metabolic Knk761 AST(SGOT) 17 U/L 04/25/2017 Comp Metabolic Whw284 ALT(SGPT) 20 U/L 04/25/2017 Comp Metabolic Tkp979 BILI T 0.8 mg/dL 04/25/2017 Comp Metabolic Jlq449 ALBUMIN 4.6 g/dL 04/25/2017 Comp Metabolic Otk076 TPRO 7.1 g/dL 04/25/2017 Comp Metabolic Map019 GLOB 2.5 g/dL 04/25/2017 Comp Metabolic Pmd210 A/G Ratio 1.9 Ratio 04/25/2017 Comp Metabolic Qno856 Osmo 284 mOsmo 04/25/2017 %Hba1C Wsf430 % HbA1c 09013-0 6.7 % 04/25/2017 %Hba1C Ign119 Gluc Ave 146 mg/dL 04/25/2017 Tsh Ord6 hTSH II 1.90 uIU/mL 04/25/2017 Lipid Ord30 CHOL 155 mg/dL 04/25/2017 Lipid Ord30 HDL 45.0 mg/dl 04/25/2017 Lipid Ord30 TRIG 114 mg/dL 04/25/2017 Lipid Ord30 LDL 87 mg/dL 04/25/2017 Lipid Ord30 C/HDL 3.4 Ratio 04/25/2017 Tsh Ord6 hTSH II 2.23 uIU/mL 12/25/2016 Cbc With Differential Ord2 WBC 5.84 K/ul 12/25/2016 Cbc With Differential Ord2 RBC 4.60 M/ul 12/25/2016 Cbc With Differential Ord2 HGB 13.9 g/dl 12/25/2016 Cbc With Differential Ord2 HCT 40.1 % 12/25/2016 Cbc With Differential Ord2 Neut% 57.5 % 12/25/2016 Cbc With Differential Ord2 MCV 87.2 fl 12/25/2016 Cbc With Differential Ord2 Lymph% 31.3 % 12/25/2016 Cbc With Differential Ord2 [place]% 8.9 % 12/25/2016 Cbc With Differential Ord2 MCH 30.2 pg 12/25/2016 Cbc With Differential Ord2 MCHC 34.7 pg 12/25/2016 Cbc With Differential Ord2 Eos% 2.1 % 12/25/2016 Cbc With Differential Ord2 PLT 182 K/ul 12/25/2016 Cbc With Differential Ord2 Baso% 0.2 % 12/25/2016 Cbc With Differential Ord2 Neut ABS# 3.36 K/ul 12/25/2016 Cbc With Differential Ord2 RDW 14.0 % 12/25/2016 Cbc With Differential Ord2 Lymph ABS# 1.83 K/ul 12/25/2016 Cbc With Differential Ord2 [place] ABS# 0.5 K/ul 12/25/2016 Cbc With Differential Ord2 Eos ABS# 0.1 K/ul 12/25/2016 Cbc With Differential Ord2 Baso ABS# 0.0 K/ul 12/25/2016 %Hba1C Dyy385 % HbA1c 62273-7 7.2 % 12/25/2016 %Hba1C Atv988 Gluc Ave 160 mg/dL 12/25/2016 Lipid Ord30 CHOL 141 mg/dL 12/25/2016 Lipid Ord30 HDL 43.0 mg/dl 12/25/2016 Lipid Ord30 TRIG 87 mg/dL 12/25/2016 Lipid Ord30 LDL 81 mg/dL 12/25/2016 Lipid Ord30 C/HDL 3.3 Ratio 12/25/2016 Comp Metabolic Emh025 NA 138 mEq/L 12/25/2016 Comp Metabolic Oru274 K 4.2 mEq/L 12/25/2016 Comp Metabolic Ute271 CL 102 mEq/L 12/25/2016 Comp Metabolic Fyv207 CO2 30.0 mEq/L 12/25/2016 Comp Metabolic Idr554 ANION GAP 10 12/25/2016 Comp Metabolic Qgb366 GLUCOSE 170 mg/dL 12/25/2016 Comp Metabolic Nnx528 Creat 1.0 mg/dL 12/25/2016 Comp Metabolic Rai367 eGFR 82 ml/min/1.73m2 12/25/2016 Comp Metabolic Lay152 BUN 14 mg/dL 12/25/2016 Comp Metabolic Nfm628 B/C Ratio 14.4 Ratio 12/25/2016 Comp Metabolic Hng466 CALCIUM 9.5 mg/dL 12/25/2016 Comp Metabolic Uuu345 ALK PHOS 55 U/L 12/25/2016 Comp Metabolic Anz552 AST(SGOT) 13 U/L 12/25/2016 Comp Metabolic Fbj904 ALT(SGPT) 19 U/L 12/25/2016 Comp Metabolic Tlq278 BILI T 0.6 mg/dL 12/25/2016 Comp Metabolic Kwk274 ALBUMIN 4.4 g/dL 12/25/2016 Comp Metabolic Kla504 TPRO 6.6 g/dL 12/25/2016 Comp Metabolic Ahb712 GLOB 2.2 g/dL 12/25/2016 Comp Metabolic Ypw437 A/G Ratio 2.0 Ratio 12/25/2016 Comp Metabolic Zgr631 Osmo 280 mOsmo 12/25/2016 Comp Metabolic Rru659 NA 135 mEq/L 06/28/2016 Comp Metabolic Wsq708 K 4.1 mEq/L 06/28/2016 Comp Metabolic Gjp181 CL 100 mEq/L 06/28/2016 Comp Metabolic Qan926 CO2 29.0 mEq/L 06/28/2016 Comp Metabolic Lyv923 ANION GAP 10 06/28/2016 Comp Metabolic Qps671 GLUCOSE 148 mg/dL 06/28/2016 Comp Metabolic Lyk208 Creat 0.9 mg/dL 06/28/2016 Comp Metabolic Byp431 eGFR 88 ml/min/1.73m2 06/28/2016 Comp Metabolic Mba253 BUN 14 mg/dL 06/28/2016 Comp Metabolic Wbd198 B/C Ratio 15.2 Ratio 06/28/2016 Comp Metabolic Hlq299 CALCIUM 9.5 mg/dL 06/28/2016 Comp Metabolic Nnz052 ALK PHOS 51 U/L 06/28/2016 Comp Metabolic Wtg604 AST(SGOT) 14 U/L 06/28/2016 Comp Metabolic Tqd031 ALT(SGPT) 15 U/L 06/28/2016 Comp Metabolic Fug969 BILI T 0.8 mg/dL 06/28/2016 Comp Metabolic Wbq500 ALBUMIN 4.3 g/dL 06/28/2016 Comp Metabolic Uhq733 TPRO 6.5 g/dL 06/28/2016 Comp Metabolic Jnr164 GLOB 2.3 g/dL 06/28/2016 Comp Metabolic Fjr305 A/G Ratio 1.9 Ratio 06/28/2016 Comp Metabolic Zbs601 Osmo 273 mOsmo 06/28/2016 Lipid Ord30 CHOL 147 mg/dL 06/28/2016 Lipid Ord30 HDL 41.0 mg/dl 06/28/2016 Lipid Ord30 TRIG 72 mg/dL 06/28/2016 Lipid Ord30 LDL 92 mg/dL 06/28/2016 Lipid Ord30 C/HDL 3.6 Ratio 06/28/2016 Total Psa Ord10 PSA 0.56 ng/mL 06/28/2016 Cbc With Differential Ord2 WBC 6.13 K/ul 06/28/2016 Cbc With Differential Ord2 RBC 4.43 M/ul 06/28/2016 Cbc With Differential Ord2 HGB 13.3 g/dl 06/28/2016 Cbc With Differential Ord2 Neut% 59.2 % 06/28/2016 Cbc With Differential Ord2 HCT 38.0 % 06/28/2016 Cbc With Differential Ord2 Lymph% 30.3 % 06/28/2016 Cbc With Differential Ord2 MCV 85.8 fl 06/28/2016 Cbc With Differential Ord2 [place]% 8.3 % 06/28/2016 Cbc With Differential Ord2 MCH 30.0 pg 06/28/2016 Cbc With Differential Ord2 MCHC 35.0 pg 06/28/2016 Cbc With Differential Ord2 Eos% 2.0 % 06/28/2016 Cbc With Differential Ord2 Baso% 0.2 % 06/28/2016 Cbc With Differential Ord2 PLT 158 K/ul 06/28/2016 Cbc With Differential Ord2 RDW 13.9 % 06/28/2016 Cbc With Differential Ord2 Neut ABS# 3.63 K/ul 06/28/2016 Cbc With Differential Ord2 Lymph ABS# 1.86 K/ul 06/28/2016 Cbc With Differential Ord2 [place] ABS# 0.5 K/ul 06/28/2016 Cbc With Differential Ord2 Eos ABS# 0.1 K/ul 06/28/2016 Cbc With Differential Ord2 Baso ABS# 0.0 K/ul 06/28/2016 %Hba1C Uib241 % HbA1c 91798-8 6.5 % 06/28/2016 %Hba1C Fzm799 Gluc Ave 140 mg/dL 06/28/2016 Tsh Ord6 hTSH II 1.82 uIU/mL 06/28/2016 Lipid Ord30 CHOL 131 mg/dL 02/21/2016 Lipid Ord30 HDL 42.0 mg/dl 02/21/2016 Lipid Ord30 TRIG 94 mg/dL 02/21/2016 Lipid Ord30 LDL 70 mg/dL 02/21/2016 Lipid Ord30 C/HDL 3.1 Ratio 02/21/2016 %Hba1C Zas125 % HbA1c 24339-5 6.6 % 02/21/2016 %Hba1C Kmv318 Gluc Ave 143 mg/dL 02/21/2016 Cbc With Differential Ord2 WBC 5.92 K/ul 02/21/2016 Cbc With Differential Ord2 RBC 4.46 M/ul 02/21/2016 Cbc With Differential Ord2 HGB 13.7 g/dl 02/21/2016 Cbc With Differential Ord2 Neut% 60.4 % 02/21/2016 Cbc With Differential Ord2 HCT 38.7 % 02/21/2016 Cbc With Differential Ord2 MCV 86.8 fl 02/21/2016 Cbc With Differential Ord2 Lymph% 28.9 % 02/21/2016 Cbc With Differential Ord2 [place]% 8.6 % 02/21/2016 Cbc With Differential Ord2 MCH 30.7 pg 02/21/2016 Cbc With Differential Ord2 Eos% 1.9 % 02/21/2016 Cbc With Differential Ord2 MCHC 35.4 pg 02/21/2016 Cbc With Differential Ord2 Baso% 0.2 % 02/21/2016 Cbc With Differential Ord2 PLT 187 K/ul 02/21/2016 Cbc With Differential Ord2 RDW 13.4 % 02/21/2016 Cbc With Differential Ord2 Neut ABS# 3.58 K/ul 02/21/2016 Cbc With Differential Ord2 Lymph ABS# 1.71 K/ul 02/21/2016 Cbc With Differential Ord2 [place] ABS# 0.5 K/ul 02/21/2016 Cbc With Differential Ord2 Eos ABS# 0.1 K/ul 02/21/2016 Cbc With Differential Ord2 Baso ABS# 0.0 K/ul 02/21/2016 Cbc With Differential Ord2 New Analyzer Notice Please note new ref ranges starting 10-27-2015 due to implemntation of new five part differential hematolgy analyzer. 02/21/2016 Comp Metabolic Xfn521 NA 139 mEq/L 02/21/2016 Comp Metabolic Jyj710 K 4.7 mEq/L 02/21/2016 Comp Metabolic Gfd475 CL 101 mEq/L 02/21/2016 Comp Metabolic Whr208 CO2 29.0 mEq/L 02/21/2016 Comp Metabolic Rfd823 ANION GAP 14 02/21/2016 Comp Metabolic Tzl753 GLUCOSE 144 mg/dL 02/21/2016 Comp Metabolic Ret425 Creat 1.0 mg/dL 02/21/2016 Comp Metabolic Zax795 eGFR 78 ml/min/1.73m2 02/21/2016 Comp Metabolic Uts306 BUN 15 mg/dL 02/21/2016 Comp Metabolic Dgn905 B/C Ratio 14.7 Ratio 02/21/2016 Comp Metabolic Epl635 CALCIUM 9.2 mg/dL 02/21/2016 Comp Metabolic Zbq747 ALK PHOS 45 U/L 02/21/2016 Comp Metabolic Hhf490 AST(SGOT) 17 U/L 02/21/2016 Comp Metabolic Nol160 ALT(SGPT) 20 U/L 02/21/2016 Comp Metabolic Ecd584 BILI T 0.6 mg/dL 02/21/2016 Comp Metabolic Jly112 ALBUMIN 4.3 g/dL 02/21/2016 Comp Metabolic Ctj277 TPRO 6.3 g/dL 02/21/2016 Comp Metabolic Use852 GLOB 2.0 g/dL 02/21/2016 Comp Metabolic Btu124 A/G Ratio 2.1 Ratio 02/21/2016 Comp Metabolic Oik460 Osmo 281 mOsmo 02/21/2016 Tsh Ord6 hTSH II 2.48 uIU/mL 02/21/2016 Cbc With Differential Ord2 WBC 4.5 K/uL [...] With Differential Ord2 RDW 14.6 % 08/12/2015 Tsh Ord6 hTSH II 2.67 uIU/mL 08/12/2015 Comp Metabolic Vxs393 NA 136 mEq/L 08/12/2015 Comp Metabolic Cmm323 K 4.4 mEq/L 08/12/2015 Comp Metabolic Azi086 CL 101 mEq/L 08/12/2015 Comp Metabolic Mio744 CO2 28.0 mEq/L 08/12/2015 Comp Metabolic Ojh112 ANION GAP 11 08/12/2015 Comp Metabolic Rqc990 GLUCOSE 155 mg/dL 08/12/2015 Comp Metabolic Ewr973 Creat 0.9 mg/dL 08/12/2015 Comp Metabolic Pov895 eGFR 87 ml/min/1.73m2 08/12/2015 Comp Metabolic Eco359 BUN 15 mg/dL 08/12/2015 Comp Metabolic Air552 B/C Ratio 16.1 Ratio 08/12/2015 Comp Metabolic Rpb473 CALCIUM 9.3 mg/dL 08/12/2015 Comp Metabolic Pvc555 ALK PHOS 58 U/L 08/12/2015 Comp Metabolic Rnj141 AST(SGOT) 15 U/L 08/12/2015 Comp Metabolic Etl000 ALT(SGPT) 19 U/L 08/12/2015 Comp Metabolic Hrj978 BILI T 0.8 mg/dL 08/12/2015 Comp Metabolic Znu675 ALBUMIN 4.4 g/dL 08/12/2015 Comp Metabolic Uqu124 TPRO 6.6 g/dL 08/12/2015 Comp Metabolic Cdc335 GLOB 2.2 g/dL 08/12/2015 Comp Metabolic Wwq410 A/G Ratio 2.0 Ratio 08/12/2015 Comp Metabolic Bef726 Osmo 276 mOsmo 08/12/2015 %Hba1C Pse353 % HbA1c 84046-8 6.4 % 08/12/2015 %Hba1C Jyk062 Gluc Ave 137 mg/dL 08/12/2015 Free T4 Dqz120 FREE T4 0.92 ng/dL 08/12/2015 Review of Systems System Result Effective [...] abnormalities 02/18/2015 None Full Exam - General 1994 Constitutional general appearance Overall: well developed 07/23/2014 [...] accomodation 11/25/2013 None Full Exam - General 1994 Ears/Nose/Throat oral cavity/pharynx/larynx Overall: oral mucosa clear 11/25/2013 None Full Exam - General 1995 Ears/Nose/Throat oral cavity/pharynx/larynx Overall: oropharyngeal mucosa clear 11/25/2013 None Full Exam - General 1994 Ears/Nose/Throat oral cavity/pharynx/larynx Overall: no masses 11/25/2013 [...] proprioception 11/25/2013 None Full Exam - General 1995 Constitutional general appearance Overall: well developed 07/22/2013 None Full Exam - General 1995 Constitutional general appearance Overall: in no acute distress 07/22/2013 None Full Exam - General 1995 Constitutional general appearance Overall: well nourished 07/22/2013 None Full Exam - General 1995 Eyes pupils and irises Overall: pupils equal, round, reactive to light and accomodation 07/22/2013 None Full Exam - General 1995 Ears/Nose/Throat oral cavity/pharynx/larynx Overall: oral mucosa clear 07/22/2013 None Full Exam - General 1995 Ears/Nose/Throat oral cavity/pharynx/larynx Overall: oropharyngeal mucosa clear 07/22/2013 None Full Exam - General 1995 Ears/Nose/Throat oral cavity/pharynx/larynx Overall: no masses 07/22/2013 None Full Exam - General 1994 [...] accomodation 04/22/2013 None Full Exam - General 1995 Ears/Nose/Throat oral cavity/pharynx/larynx Overall: oral mucosa clear 04/22/2013 None Full Exam - General 1995 Ears/Nose/Throat oral cavity/pharynx/larynx Overall: oropharyngeal mucosa clear 04/22/2013 None Full Exam - General 1995 Ears/Nose/Throat oral cavity/pharynx/larynx Overall: no masses 04/22/2013 None Full Exam - General 1994 Respiratory auscultation Overall: breath sounds clear bilaterally 04/22/2013 None Full Exam - General 1994 Respiratory respiratory effort/rhythm Overall: no retractions 04/22/2013 None Full Exam - General 1994 Respiratory respiratory effort/rhythm Overall: normal rate 04/22/2013 None Full Exam - General 1994 Cardiovascular auscultation of heart Overall: regular rate 04/22/2013 None Full Exam - General 1994 [...] masses 01/21/2013 None Full Exam - General 1994 Respiratory auscultation Overall: breath sounds clear bilaterally 01/21/2013 None Full Exam - General 1994 Respiratory respiratory effort/rhythm Overall: no retractions 01/21/2013 None Full Exam - General 1994 Respiratory respiratory effort/rhythm Overall: normal rate 01/21/2013 None Full Exam - General 1994 Cardiovascular auscultation of heart Overall: regular rate 01/21/2013 None Full Exam - General 1994 Cardiovascular auscultation of heart Overall: normal heart sounds 01/21/2013 None Full Exam - General 1994 Cardiovascular auscultation of heart Overall: no murmurs 01/21/2013 None Full Exam - General 1994 Abdomen abdominal exam Overall: no tenderness 01/21/2013 None Full Exam - General 1994 Abdomen [...] bilaterally 10/22/2012 None Full Exam - General 1995 Respiratory respiratory effort/rhythm Overall: no retractions 10/22/2012 None Full Exam - General 1994 Respiratory respiratory effort/rhythm Overall: normal rate 10/22/2012 None Full Exam - General 1994 Cardiovascular auscultation of heart Overall: regular rate 10/22/2012 None Full Exam - General 1994 Cardiovascular auscultation of heart Overall: normal heart sounds 10/22/2012 None Full Exam - General 1994 Cardiovascular auscultation of heart Overall: no murmurs 10/22/2012 None Full Exam - General 1994 Abdomen abdominal exam Overall: no tenderness 10/22/2012 None Full Exam - General 1994 [...] tenderness 09/12/2012 None Full Exam - General 1995 Abdomen abdominal exam Overall: normal bowel sounds 09/12/2012 None Full Exam - General 1995 Musculoskeletal head and neck Overall: head atraumatic 09/12/2012 None Full Exam - General 1994 Musculoskeletal head and neck Overall: cervical spine benign 09/12/2012 None Full Exam - General 1994 Psychiatric orientation/consciousness Overall: oriented to person, place and time 09/12/2012 None Full Exam - General 1994 Psychiatric mood and affect Overall: normal mood and affect 09/12/2012 None Full Exam - General 1994 Constitutional general appearance Overall: well developed 07/23/2012 None Full Exam - General 1994 Constitutional general appearance Overall: in no acute distress 07/23/2012 None Full Exam - General 1994 Constitutional general appearance Overall: well nourished 07/23/2012 None Full Exam - General 1994 Eyes pupils and irises Overall: pupils equal, round, reactive to light and accomodation 07/23/2012 None Full Exam - General 1995 [...] FLU VACC PRSV FREE INC ANTIG CPT-4: 69761 07/03/2016 INITIAL PREVENTIVE EXAM CPT-4: G0402 11/17/2015 FOOT EXAM PERFORMED SNOMED CT: 86406871 CPT-4: 2028F 11/25/2013 IMMUNIZATION ADMIN CPT -4: 76421 08/07/2013 Influenza Virus Vaccine, Split Virus, >3 Yrs, IM CPT-4: 00411 08/07/2013 37720 EST. PATIENT, LEVEL IV CPT-4: 74032 10/22/2012 DESTRUCT PREMALG LESION CPT-4: 52878 08/09/2011 DESTRUCT PREMALG LES 2-14 CPT-4: 62714 08/09/2011 Vital Signs Date Vital 10/24/2017 Blood Pressure 1: 152/76 Code : 8480-6 BMI: 30.4 Code : 98543-7 Heart Rate 1 : 65 bpm Height: 5'2" SpO2: 98% Weight: 166 lbs 05/02/2017 Blood Pressure 1: 140/78 Code : 8480-6 BMI: 29.4 Code : 47974-4 Heart Rate 1 : 75 bpm Height: 5'2" SpO2: 97% Weight: 161 lbs 01/03/2017 Blood Pressure 1: 150/82 Code : 8480-6 BMI: 31.5 Code : 28479-5 Heart Rate 1 : 49 bpm Height: 5'2" SpO2: 94% Waist Measure (cm): 86 cm Weight: 172 lbs 01/01/2017 Blood Pressure 1: 150/80 Code : 8480-6 BMI: 31.5 Code : 94734-7 Heart Rate 1 : 57 bpm Height: 5'2" SpO2: 97% Weight: 172 lbs 07/03/2016 Blood Pressure 1: 156/82 Code : 8480-6 BMI: 26.3 Code : 57832-4 Heart Rate 1 : 57 bpm Height: 5'7" SpO2: 98% Weight: 168 lbs 02/28/2016 Blood Pressure 1: 128/82 Code : 8480-6 BMI: 26.6 Code : 49925-8 Heart Rate 1 : 64 bpm Height: 5'7" SpO2: 96% Weight: 170 lbs 11/17/2015 Blood Pressure 1: 140/80 Code : 8480-6 BMI: 26.3 Code : 65085-3 Heart Rate 1 : 61 bpm Height: 5'7" SpO2: 94% Waist Measure (cm): 94 cm Weight: 168 lbs 08/19/2015 Blood Pressure 1: 140/78 Code : 8480-6 BMI: 26.5 Code : 10072-1 Heart Rate 1 : 66 bpm Height: 5'7" SpO2: 97% Weight: 169 lbs 02/18/2015 Blood Pressure 1: 148/92 Code : 8480-6 BMI: 26.8 Code : 68657-1 Heart Rate 1 : 56 bpm Height: 5'7" Weight: 171 lbs 07/23/2014 Blood Pressure 1: 162/84 Code : 8480-6 BMI: 26.3 Code : 35703-2 Heart Rate 1 : 70 bpm Height: 5'7" Weight: 168 lbs 03/24/2014 Blood Pressure 1: 156/70 Code : 8480-6 BMI: 25.7 Code : 77306-7 Heart Rate 1 : 52 bpm Height: 5'8" Weight: 168 lbs 11/25/2013 Blood Pressure 1: 152/82 Code : 8480-6 BMI: 25.5 Code : 17004-5 Heart Rate 1 : 48 bpm Height: 5'8" Weight: 167 lbs 07/22/2013 Blood Pressure 1: 152/92 Code : 8480-6 BMI: 24.5 Code : 97919-7 Heart Rate 1 : 64 bpm Height: 5'8" Weight: 160 lbs 8 oz 06/18/2013 Weight: 167 lbs 05/20/2013 Weight: 166 lbs 04/22/2013 Blood Pressure 1: 160/80 Code : 8480-6 BMI: 26.3 Code : 06442-5 Heart Rate 1 : 80 bpm Height: 5'8" Weight: 172 lbs 01/21/2013 Blood Pressure 1: 174/92 Code : 8480-6 Blood Pressure 2: 170/88 Code: 8480-6 BMI: 26.2 Code: 09061-5 Heart Rate 1: 72 bpm Height: 5'8" Weight: 171 lbs 10/22/2012 Blood Pressure 1: 136/86 Code : 8480-6 BMI: 26.0 Code : 27311-1 Heart Rate 1 : 60 bpm Height: 5'8" Weight: 170 lbs 09/12/2012 Blood Pressure 1: 178/80 Code : 8480-6 Heart Rate 1: 52 bpm Weight: 173 lbs 07/23/2012 Blood Pressure 1: 138/72 Code : 8480-6 BMI: 26.2 Code : 55400-6 Heart Rate 1 : 76 bpm Height: 5'8" Weight: 171 lbs 06/12/2012 Blood Pressure 1: 146/72 Code : 8480-6 Heart Rate 1: 64 bpm Respiratory Rate : 16 bpm Weight: 171 lbs 01/10/2012 Blood Pressure 1: 118/58 Code : 8480-6 BMI: 26.2 Code : 07955-2 Heart Rate 1 : 72 bpm Height: 5'8" Respiratory Rate: 16 bpm Weight: 171 lbs 09/13/2011 Blood Pressure 1: 142/84 Code : 8480-6 BMI: 26.0 Code : 24603-9 Heart Rate 1 : 88 bpm Height: 5'8" Respiratory Rate: 20 bpm Weight: 170 lbs 08/09/2011 Blood Pressure 1: 138/70 Code : 8480-6 BMI: 26.2 Code : 92384-2 Heart Rate 1 : 76 bpm Height: [...] data Encounters Encounter Performer Location Codes Date ([id number]) 36784 EST. PATIENT, LEVEL IV Diagnosis: Type 2 diabetes mellitus with hyperglycemia[ICD10: E11.65] Diagnosis: Mixed hyperlipidemia[ICD10: E78.2] Diagnosis: Essential (primary) hypertension[ICD10: I10] Ambreen Kaur MD, [facility] CPT-4: 81362 10/24/2017 ([id number]) 36960 EST. PATIENT, LEVEL IV Diagnosis: Type 2 diabetes mellitus without complications[ICD10: E11.9] Diagnosis: Mixed hyperlipidemia[ICD10: E78.2] Diagnosis: Essential (primary) hypertension[ICD10: I10] Ambreen Kaur MD, [facility] CPT-4: 74877 05/02/2017 ([id number]) 76943 EST. PATIENT, LEVEL IV Diagnosis: Essential (primary) hypertension[ICD10: I10] Diagnosis: Type 2 diabetes mellitus with hyperglycemia[ICD10: E11.65] Diagnosis: Mixed hyperlipidemia[ICD10: E78.2] Ambreen Kaur MD, [facility] CPT-4: 43785 01/01/2017 [id number]) 15476 EST. PATIENT, LEVEL IV Diagnosis: Type 2 diabetes mellitus without complications[ICD10: E11.9] Diagnosis: Essential (primary) hypertension[ICD10: I10] Diagnosis: Mixed hyperlipidemia[ICD10: E78.2] Diagnosis: Encounter for immunization[ICD10: Z23] Ambreen Kaur MD [facility] CPT-4: 98657 07/03/2016 ([id number]) 95426 EST. PATIENT, LEVEL IV Diagnosis: Type 2 diabetes mellitus without complications[ICD10: E11.9] Diagnosis: Essential (primary) hypertension[ICD10: I10] Diagnosis: Mixed hyperlipidemia[ICD10: E78.2] Ambreen Kaur MD [facility] CPT-4: 32303 02/28/2016 ([id number]) 17326 EST. PATIENT, LEVEL IV Diagnosis: Type 2 diabetes mellitus without complications[ICD10: E11.9] Diagnosis: Essential (primary) hypertension[ICD10: I10] Ambreen Kaur MD [facility] CPT-4: 98852 08/19/2015 ([id number]) 79693 EST. PATIENT, LEVEL IV Diagnosis: DIABETES TYPE II[ICD9: 250.00] Diagnosis: ESSENTIAL HYPERTENSION[ICD9: 401.9] Diagnosis: HYPERLIPIDEMIA[ICD9: 272.4] Amrbeen Kaur MD [facility] CPT- 4: 97057 02/18/2015 ([id number]) 27274 EST. PATIENT, LEVEL IV Diagnosis: DIABETES TYPE II[ICD9: 250.00] Diagnosis: ESSENTIAL HYPERTENSION[ICD9: 401.9] Ambreen Kaur MD [facility] CPT-4: 74752 07/23/2014 ([id number]) 59032 EST. PATIENT, LEVEL IV Diagnosis: DIABETES TYPE II[SNOMED: 730321393] Diagnosis: ESSENTIAL HYPERTENSION[SNOMED: 11856357] Diagnosis: HYPERLIPIDEMIA[ICD9: 272.4] Ambreen Kaur MD [facility] CPT- 4: 77820 03/24/2014 ([id number]) 75702 EST. PATIENT, LEVEL IV Diagnosis: DIABETES TYPE II[SNOMED: 923071265] Diagnosis: ESSENTIAL HYPERTENSION[SNOMED: 63734388] Diagnosis: HYPERLIPIDEMIA[ICD9: 272.4] Diagnosis: Fatigue[ICD9: 780.79] Ambreen Kaur MD [facility] CPT-4: 22143 11/25/2013 ([id number]) 76758 EST. PATIENT, LEVEL III Diagnosis: DIABETES TYPE II[SNOMED: 242113363] Diagnosis: ESSENTIAL HYPERTENSION[SNOMED: 05449539] Ambreen Kaur MD, [facility] CPT-4: 15128 07/22/2013 ([id number]) Miscellaneous no charge Diagnosis: ESSENTIAL HYPERTENSION[SNOMED: 52265114] Diagnosis: DIABETES TYPE II[SNOMED: 112880379] TYLER Yanez MD CPT-4: 32979 06/18/2013 ([id number]) 70681 EST. PATIENT, LEVEL III Diagnosis: ESSENTIAL HYPERTENSION[SNOMED: 33363571] Diagnosis: DIABETES TYPE II[SNOMED: 762785191] Ambreen Kaur MD [facility] CPT-4: 06912 04/22/2013 ([id number]) 50006 EST. PATIENT, LEVEL IV Diagnosis: ESSENTIAL HYPERTENSION[SNOMED: 91682366] Diagnosis: DIABETES TYPE II[SNOMED: 378108581] TYLER Yanez MD CPT-4: 44251 01/21/2013 ([id number]) 86982 EST. PATIENT, LEVEL IV Diagnosis: ESSENTIAL HYPERTENSION[SNOMED: 58172034] Diagnosis: DIABETES TYPE II[SNOMED: 973651214] Ambreen Kaur MD [facility] CPT-4: 94103 09/12/2012 ([id number]) 25687 EST. PATIENT, LEVEL IV Diagnosis: ESSENTIAL HYPERTENSION[SNOMED: 01690798] Diagnosis: DIABETES TYPE II[SNOMED: 957306826] Ambreen Kaur MD [facility] CPT-4: 46921 07/23/2012 ([id number]) 17576 EST. PATIENT, LEVEL III Diagnosis: DIABETES TYPE II[SNOMED: 353848656] Diagnosis: ESSENTIAL HYPERTENSION[SNOMED: 27900091] [facility] CPT-4: 98061 06/12/2012 ([id number]) 32346 EST. PATIENT, LEVEL IV Diagnosis: ESSENTIAL HYPERTENSION[SNOMED: 61627346] Diagnosis: DIABETES TYPE II[SNOMED: 497502147] Diagnosis: History of colon cancer[ICD9: V10.05] Ambreen Kaur MD, [facility] CPT-4: 66764 01/10/2012 93014 EST. PATIENT, LEVEL IV Diagnosis: ESSENTIAL HYPERTENSION[SNOMED: 16461205] Diagnosis: DIABETES TYPE II[SNOMED: 743115801] Diagnosis: Dry skin[ICD9: 782.9] [facility] CPT-4: 99458 09/13/2011 43559 EST. PATIENT, LEVEL III Diagnosis: ESSENTIAL HYPERTENSION[SNOMED: 13763733] Diagnosis: Actinic keratosis[ICD9: 702.0] Diagnosis: Seborrheic keratosis, inflamed[ICD9: 702.11] [facility] CPT-4: 96484 08/09/2011 Plan of Care Planned Activity Notes Codes Status Date Appointment: Ambreen Kaur WPtel: [facility] (15 min) Moderate 10/24/2017 Patient Education: Patient Medication Summary Completed 10/24/2017 Patient Education: Patient Medication Summary Completed 10/16/2017 Appointment: Ambreen Kaur WPtel: [address] [place], [place] [phone] (15 min) Moderate 05/02/2017 Patient Education: Patient Medication Summary Completed 05/02/2017 Patient Education: Patient Medication Summary Completed 04/25/2017 Appointment: Leanna Richards WPtel: [facility] MCR - Annual Wellness Visit 01/03/2017 Patient Education: Patient Medication Summary Completed 01/03/2017 Appointment: Ambreen Kaur WPtel: [facility] (15 min) Moderate 01/01/2017 Patient Education: Patient Medication Summary Completed 01/01/2017 Patient Education: Obesity Completed 01/01/2017 Patient Education: Patient Medication Summary Completed 12/25/2016 Appointment: Ambreen Kaur WPtel: [facility] (15 min) Moderate 07/03/2016 Patient Education: Patient Medication Summary Completed 07/03/2016 Patient Education: Patient Medication Summary Completed 06/27/2016 Patient Education: Patient Medication Summary Completed 02/28/2016 Appointment: [facility]reen [facility]urtel[facility] [address] [facility] (15 min) Moderate 02/21/2016 Patient Education: Patient Medication Summary Completed 02/21/2016 Patient Education: Patient Medication Summary Completed 11/17/2015 Patient Education: Patient Medication Summary Completed 08/19/2015 Patient Education: Hypertension Completed 08/19/2015 Appointment: Ambreen Kaur WPtel: [address] [place], [place] [phone] Follow up 02/18/2015 Patient Education: Patient Medication Summary Completed 02/18/2015 Patient Education: Hypertension Completed 02/18/2015 Appointment: Ambreen Kaur WPtel: [address] [place], [place] [phone] Follow up 07/23/2014 Patient Education: Patient Medication Summary Completed 07/23/2014 Patient Education: Hypertension Completed 07/23/2014 Appointment: Ambreen Kaur WPtel: [address] [place], [place] [phone] Follow up 03/24/2014 Patient Education: Patient Medication Summary Completed 03/24/2014 Patient Education: Hypertension Completed 03/24/2014 Appointment: Ambreen Kaur WPtel: [address] [place], [place] [phone] Follow up 11/25/2013 Patient Education: Patient Medication Summary Completed 11/25/2013 Patient Education: Hypertension Completed 11/25/2013 Appointment: Ambreen Kaur WPtel: [address] [place] [id number] Injection 08/07/2013 Patient Education: Patient Medication Summary Completed 08/07/2013 Appointment: Ambreen Kaur WPtel: [facility] Follow up 07/22/2013 Patient Education: Patient Medication Summary Completed 07/22/2013 Patient Education: Hypertension Completed 07/22/2013 Appointment: Ambreen Kaur WPtel: [facility] [facility] Lab Draw 06/18/2013 Appointment: Ambreen Kaur WPtel: [facility] weight check 06/18/2013 Patient Education: Patient Medication Summary Completed 06/18/2013 Patient Education: Hypertension Completed 06/18/2013 Patient Education: Patient Medication Summary Completed 05/20/2013 Appointment: Ambreen Kaur WPtel: [facility] Follow up 04/22/2013 Patient Education: Patient Medication Summary Completed 04/22/2013 Patient Education: Hypertension Completed 04/22/2013 Appointment: Ambreen Kaur WPtel: [address] [place] [address] Follow up 01/21/2013 Patient Education: Patient Medication Summary Completed 01/21/2013 Patient Education: Hypertension Completed 01/21/2013 Appointment: Ambreen Kaur WPtel: [address] [place] [id number] Follow up 10/22/2012 Patient Education: Patient Medication Summary Completed 10/22/2012 Patient Education: Hypertension Completed 10/22/2012 Appointment: Ambreen Kaur WPtel: [address] [place] [address] Follow up 09/12/2012 Patient Education: Patient Medication Summary Completed 09/12/2012 Patient Education: High Blood Pressure: Essential Hypertension Completed 2011 Appointment: Ambreen Kaur WPtel: [address] [place] [address] Follow up 07/23/2012 Patient Education: Patient Medication Summary Completed 07/23/2012 Patient Education: High Blood Pressure: Essential Hypertension Completed 2011 Appointment: Ambreen Kaur WPtel: [address] [place] [address] Follow up 06/12/2012 Patient Education: Patient Medication Summary Completed 06/12/2012 Patient Education: High Blood Pressure: Essential Hypertension Completed 2011 Appointment: Ambreen Kaur WPtel: [address] [place] [id number] Other 01/10/2012 Patient Education: Patient Medication Summary Completed 01/10/2012 Patient Education: High Blood Pressure: Essential Hypertension Completed 2011 Appointment: Ambreen Kaur WPtel: [address] [place], [place] [phone] Other 09/13/2011 Patient Education: Patient Medication Summary Completed 09/13/2011 Patient Education: High Blood Pressure: Essential Hypertension Completed 2010 Appointment: Ambreen Kaur WPtel: [address] [place] [id number] Other 08/09/2011 Patient Education: Patient Medication Summary Completed 08/09/2011 Patient Education: High Blood Pressure: Essential Hypertension Completed 2010 Instructions No Instructions
--- OUTSIDE RECORDS SUMMARY | 2018-07-01 09:44 | XMS REPORT | Continuity of Care Document ---
Author Author [facility] Address Unknown Phone Unavailable Allergies Active Description Code Type Severity Reaction Onset Reported/Identified Relationship to Patient Clinical Status Yes No Known Drug Allergies [id number] Drug Allergy Unknown N/A 07/10/2016 Medications There is no data. Problems Date Dx Coded Attending Type Code Diagnosis Diagnosed By 09/26/2009 Ot 153.9 09/30/2009 Ot 153.3 09/30/2009 Ot 196.2 09/30/2009 Ot 250.00 09/30/2009 Ot 272.0 09/30/2009 Ot 401.9 09/30/2009 Ot V58.11 09/30/2009 Ot V58.69 01/02/2010 Ot 153.3 01/02/2010 Ot 196.2 01/02/2010 Ot V45.72 01/02/2010 Ot V58.11 01/02/2010 Ot V58.69 04/03/2010 Ot 153.3 04/03/2010 Ot 196.2 04/03/2010 Ot 287.4 04/03/2010 Ot 357.6 04/03/2010 Ot E933.1 04/03/2010 Ot V45.72 04/03/2010 Ot V58.11 04/03/2010 Ot V58.69 07/04/2010 Ot V10.05 07/04/2010 Ot V67.09 07/14/2010 Ot 153.3 07/14/2010 Ot 196.2 07/14/2010 Ot 357.6 07/14/2010 Ot E933.1 07/14/2010 Ot V45.72 07/14/2010 Ot V58.69 07/14/2010 Ot V58.81 11/13/2010 Ot 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 11/13/2010 Ot 196.2 MAL RUBIO LYMPH INTRA-ABD 11/13/2010 Ot 250.00 DIAB LARISSA WO COMPL, TYPE II OR UNSPEC TY 11/13/2010 Ot V58.66 LONG-TERM ( CURRENT) USE OF ASPIRIN 11/13/2010 Ot V58.69 OTH MED,LT, CURRENT USE 11/13/2010 Ot V87.41 PERSONAL HISTORY OF ANTINEOPLASTIC CHEMO 02/19/2011 Ot 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 02/19/2011 Ot 196.2 MAL RUBIO LYMPH INTRA-ABD 02/19/2011 Ot 250.00 DIAB LARISSA WO COMPL, TYPE II OR UNSPEC TY 02/19/2011 Ot V58.66 LONG-TERM ( CURRENT) USE OF ASPIRIN 02/19/2011 Ot V58.69 OTH MED,LT, CURRENT USE 02/19/2011 Ot V87.41 PERSONAL HISTORY OF ANTINEOPLASTIC CHEMO 02/13/2012 Ot 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 02/13/2012 Ot 196.2 MAL RUBIO LYMPH INTRA-ABD 02/13/2012 Ot 250.00 DIAB LARISSA WO COMPL, TYPE II OR UNSPEC TY 02/13/2012 Ot V58.66 LONG-TERM ( CURRENT) USE OF ASPIRIN 02/13/2012 Ot V87.41 PERSONAL HISTORY OF ANTINEOPLASTIC CHEMO 04/18/2012 FRANCESCA ETIENNE DO V06.1 TDAP DX 04/18/2012 TIGRE SANDERSON APRN V06.1 TDAP DX 08/07/2012 Ot 327.23 OBSTRUCTIVE SLEEP APNEA (ADULT) (PEDIATR 08/14/2012 Ot 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 08/14/2012 Ot 196.2 MAL RUBIO LYMPH INTRA-ABD 12/13/2012 Ot 250.00 DIAB LARISSA WO COMPL, TYPE II OR UNSPEC TY 12/13/2012 Ot 272.4 HYPERLIPIDEMIA NEC/NOS 12/13/2012 Ot 401.9 HYPERTENSION NOS 12/13/2012 Ot 416.8 CHR PULMON HEART DIS NEC 12/13/2012 Ot 780.57 UNSPECIFIED SLEEP APNEA 12/13/2012 Ot 786.09 RESPIRATORY ABNORM NEC 12/13/2012 Ot V10.05 HX OF COLONIC MALIGNANCY 12/13/2012 Ot V58.66 LONG-TERM ( CURRENT) USE OF ASPIRIN 12/13/2012 Ot V58.69 OTH MED,LT, CURRENT USE 05/05/2013 JENNIFER HICKMAN Ot 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 05/05/2013 JENNIFER HICKMAN Ot 196.2 MAL RUBIO LYMPH INTRA-ABD 06/02/2013 LORA ADDISON, SWETA Tan Ot 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 06/02/2013 LORA ADDISON, SWETA Tan Ot V76.51 SCREEN MAL NEOP-COLON 07/23/2013 LORA ADDISON, SWETA Tan Ot 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 07/23/2013 LORA ADDISON, SWETA Tan Ot 250.00 DIAB LARISSA WO COMPL, TYPE II OR UNSPEC TY 07/23/2013 OLRA ADDISON, SWETA Tan Ot 401.9 HYPERTENSION NOS 07/23/2013 LORA ADDISON, SWETA Tan Ot 574.20 CHOLELITHIASIS NOS 07/23/2013 LORA ADDISON, SWETA Tan Ot V58.69 OT MED,LT,CURRENT USE 08/13/2013 MARYLOU, BOBAN N Ot 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 09/26/2013 ETIENNE DO, FRANCESCA K V70.5 EXAM - PRE-EMPLOYMENT 09/26/2013 TIGRE SANDERSON APRN V70.5 EXAM - PRE-EMPLOYMENT 11/12/2013 MARYLOU, BOBAN N Ot 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 11/12/2013 MARYLOU, BOBAN N Ot 196.2 MAL RUBIO LYMPH INTRA-ABD 05/04/2014 MARYLOU, BOBAN N Ot 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 05/04/2014 MARYLOU, BOBAN N Ot 196.2 MAL RUBIO LYMPH INTRA-ABD 08/19/2014 MARYLOU, BOBAN N Ot 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 08/19/2014 MARYLOU, BOBAN N Ot 196.2 MAL RUBIO LYMPH INTRA-ABD 09/12/2014 TIGRE SANDERSON APRN V04.81 FLU SHOT 04/09/2015 MARCO GREY MD Ot 250.00 04/09/2015 MARCO GREY MD Ot 401.9 04/09/2015 MARCO GREY MD Ot 592.0 04/09/2015 MARCO GREY MD Ot 789.09 04/09/2015 MARCO GREY MD Ot V58.69 08/04/2015 MARYLOU, BOBAN N Ot 153.3 08/04/2015 MARYLOU, BOBAN N Ot 196.2 08/05/2015 MARYLOU, BOBAN N Ot 153.3 08/05/2015 MARYLOU, BOBAN N Ot 196.2 08/05/2015 Ot 153.9 08/05/2015 Ot 250.00 08/05/2015 Ot 153.3 08/05/2015 Ot 196.2 08/05/2015 Ot 250.00 08/05/2015 Ot V58.66 08/05/2015 Ot V58.69 08/05/2015 Ot V87.41 08/05/2015 Ot 355.8 08/05/2015 Ot 153.3 08/05/2015 Ot 196.2 08/05/2015 Ot 250.00 08/05/2015 Ot 355.8 08/05/2015 Ot V58.66 08/05/2015 Ot V58.69 08/05/2015 Ot V87.41 08/05/2015 Ot 153.9 08/05/2015 Ot 573.8 08/05/2015 Ot 574.20 08/05/2015 Ot 153.3 08/05/2015 Ot 196.2 08/05/2015 Ot 250.00 08/05/2015 Ot V58.66 08/05/2015 Ot V87.41 08/05/2015 Ot 153.3 08/05/2015 Ot 196.2 08/05/2015 Ot 250.00 08/05/2015 Ot V58.66 08/05/2015 Ot V87.41 08/05/2015 Ot 153.9 08/05/2015 Ot V10.05 08/05/2015 Ot V58.69 08/05/2015 Ot V67.2 08/05/2015 Ot 153.9 08/05/2015 Ot V10.05 08/05/2015 Ot V58.69 08/05/2015 Ot V67.2 08/05/2015 Ot 250.00 08/05/2015 Ot 401.9 08/05/2015 Ot 440.9 08/05/2015 Ot 574.20 08/05/2015 Ot 786.09 08/05/2015 Ot V58.69 08/05/2015 Ot 250.00 08/05/2015 Ot 272.4 08/05/2015 Ot 401.9 08/05/2015 Ot 786.09 08/05/2015 GEREMIAS UMANZOR Ot 401.9 08/05/2015 Ot 250.00 08/05/2015 Ot 272.4 08/05/2015 Ot 401.9 08/05/2015 Ot 786.09 08/05/2015 Ot 794.39 08/05/2015 Ot V58.66 08/05/2015 Ot V58.69 08/05/2015 Ot V72.63 08/05/2015 Ot V72.81 08/05/2015 QUINONESTYESHA Srivastava GREEN CHAIN MARKER Ot 153.9 08/05/2015 LORA ADDISON, SWETA Tan Ot V72.84 08/05/2015 LORA ADDISON, SWETA Tan Ot 574.20 08/05/2015 OLRA ADDISON, SWETA Tan Ot V72.63 08/05/2015 LORA ADDISON, SWETA Tan Ot V74.8 08/05/2015 JONI GABOBBI S GREEN CHAIN MARKER Ot V10.05 08/05/2015 QUINONESTYESHA Srivastava S GREEN CHAIN MARKER Ot V67.2 08/05/2015 QUINONESTYESHA Srivastava S GREEN CHAIN MARKER Ot 153.9 08/05/2015 MARYLOUJAVIER HARRINGTONANAHI N Ot 153.3 08/05/2015 MARYLOU JENNIFER [place] Ot 196.2 08/31/2015 Ot 211.3 08/31/2015 Ot V72.81 08/31/2015 Ot V72.83 08/31/2015 Ot V74.8 08/31/2015 Ot 153.9 08/31/2015 Ot 250.00 08/31/2015 Ot 153.9 08/31/2015 Ot V72.83 08/31/2015 LORA DADISON, SWETA Tan Ot V72.84 08/31/2015 JENNIFER HICKMAN [place] Ot C18.7 08/31/2015 MARYLOU JENNIFER [place] Ot C77.2 08/31/2015 JAVIER HICKMANANAHI N Ot E11.9 08/31/2015 JENNIFER HICKMAN N Ot I10 08/31/2015 JENNIFER HICKMAN [place] Ot Z79.899 08/31/2015 Ot 153.9 08/31/2015 Ot 250.00 08/31/2015 Ot 153.3 08/31/2015 Ot 196.2 08/31/2015 Ot 250.00 08/31/2015 Ot V58.66 08/31/2015 Ot V58.69 08/31/2015 Ot V87.41 08/31/2015 Ot 355.8 08/31/2015 Ot 153.3 08/31/2015 Ot 196.2 08/31/2015 Ot 250.00 08/31/2015 Ot 355.8 08/31/2015 Ot V58.66 08/31/2015 Ot V58.69 08/31/2015 Ot V87.41 08/31/2015 Ot 153.9 08/31/2015 Ot 573.8 08/31/2015 Ot 574.20 08/31/2015 Ot 153.3 08/31/2015 Ot 196.2 08/31/2015 Ot 250.00 08/31/2015 Ot V58.66 08/31/2015 Ot V87.41 08/31/2015 Ot 153.3 08/31/2015 Ot 196.2 08/31/2015 Ot 250.00 08/31/2015 Ot V58.66 08/31/2015 Ot V87.41 08/31/2015 Ot 153.9 08/31/2015 Ot V10.05 08/31/2015 Ot V58.69 08/31/2015 Ot V67.2 08/31/2015 Ot 153.9 08/31/2015 Ot V10.05 08/31/2015 Ot V58.69 08/31/2015 Ot V67.2 08/31/2015 Ot 250.00 08/31/2015 Ot 401.9 08/31/2015 Ot 440.9 08/31/2015 Ot 574.20 08/31/2015 Ot 786.09 08/31/2015 Ot V58.69 08/31/2015 Ot 250.00 08/31/2015 Ot 272.4 08/31/2015 Ot 401.9 08/31/2015 Ot 786.09 08/31/2015 GEREMIAS UMANZOR Ot 401.9 08/31/2015 Ot 250.00 08/31/2015 Ot 272.4 08/31/2015 Ot 401.9 08/31/2015 Ot 786.09 08/31/2015 Ot 794.39 08/31/2015 Ot V58.66 08/31/2015 Ot V58.69 08/31/2015 Ot V72.63 08/31/2015 Ot V72.81 08/31/2015 TYESHA QUINONES Ot 153.9 08/31/2015 LORA ADDISON, SWETA Tan Ot V72.84 08/31/2015 LORA ADDISON, SWETA Tan Ot 574.20 08/31/2015 LORA ADDISON, SWETA Tan Ot V72.63 08/31/2015 LORA ADDISON, SWETA Tan Ot V74.8 08/31/2015 TYESHA QUINONES GREEN CHAIN MARKER Ot V10.05 08/31/2015 TYESHA QUINONES GREEN CHAIN MARKER Ot V67.2 08/31/2015 TYESHA QUINONES GREEN CHAIN MARKER Ot 153.9 08/31/2015 JENNIFER HICKMAN Ot C18.7 08/31/2015 JENNIFER HICKMAN Ot C77.2 08/31/2015 JENNIFER HICKMAN Ot E11.9 08/31/2015 JENNIFER HICKMAN N Ot I10 08/31/2015 JENNIFER HICKMAN Ot Z79.899 08/31/2015 TYESHA QUINONES GREEN CHAIN MARKER Ot C18.7 08/31/2015 TYESHA QUINONES GREEN CHAIN MARKER Ot C77.2 08/31/2015 TYESHA QUINONES GREEN CHAIN MARKER Ot E11.9 08/31/2015 TYESHA QUINONES GREEN CHAIN MARKER Ot I10 08/31/2015 TYESHA QUINONES GREEN CHAIN MARKER Ot Z79.899 08/31/2015 Ot 153.9 08/31/2015 Ot 250.00 08/31/2015 Ot 153.3 08/31/2015 Ot 196.2 08/31/2015 Ot 250.00 08/31/2015 Ot V58.66 08/31/2015 Ot V58.69 08/31/2015 Ot V87.41 08/31/2015 Ot 355.8 08/31/2015 Ot 153.3 08/31/2015 Ot 196.2 08/31/2015 Ot 250.00 08/31/2015 Ot 355.8 08/31/2015 Ot V58.66 08/31/2015 Ot V58.69 08/31/2015 Ot V87.41 08/31/2015 Ot 153.9 08/31/2015 Ot 573.8 08/31/2015 Ot 574.20 08/31/2015 Ot 153.3 08/31/2015 Ot 196.2 08/31/2015 Ot 250.00 08/31/2015 Ot V58.66 08/31/2015 Ot V87.41 08/31/2015 Ot 153.3 08/31/2015 Ot 196.2 08/31/2015 Ot 250.00 08/31/2015 Ot V58.66 08/31/2015 Ot V87.41 08/31/2015 Ot 153.9 08/31/2015 Ot V10.05 08/31/2015 Ot V58.69 08/31/2015 Ot V67.2 08/31/2015 Ot 153.9 08/31/2015 Ot V10.05 08/31/2015 Ot V58.69 08/31/2015 Ot V67.2 08/31/2015 Ot 250.00 08/31/2015 Ot 401.9 08/31/2015 Ot 440.9 08/31/2015 Ot 574.20 08/31/2015 Ot 786.09 08/31/2015 Ot V58.69 08/31/2015 Ot 250.00 08/31/2015 Ot 272.4 08/31/2015 Ot 401.9 08/31/2015 Ot 786.09 08/31/2015 GEREMIAS UMANZOR GREEN CHAIN MARKER Ot 401.9 08/31/2015 Ot 250.00 08/31/2015 Ot 272.4 08/31/2015 Ot 401.9 08/31/2015 Ot 786.09 08/31/2015 Ot 794.39 08/31/2015 Ot V58.66 08/31/2015 Ot V58.69 08/31/2015 Ot V72.63 08/31/2015 Ot V72.81 08/31/2015 TYESHA QUINONES GREEN CHAIN MARKER Ot 153.9 08/31/2015 LORA ADDISON, SWETA M Ot V72.84 08/31/2015 LORA ADDISON, SWETA M Ot 574.20 08/31/2015 LORA ADDISON, SWETA M Ot V72.63 08/31/2015 LORA ADDISON, SWETA M Ot V74.8 08/31/2015 TYESHA QUINONES GREEN CHAIN MARKER Ot V10.05 08/31/2015 TYESHA QUINONES GREEN CHAIN MARKER Ot V67.2 08/31/2015 TYESHA QUINONES GREEN CHAIN MARKER Ot 153.9 08/31/2015 MARYLOUJAVIER HARRINGTONAN N Ot C18.7 08/31/2015 MARYLOU, BOBAN N Ot C77.2 08/31/2015 MARYLOU, BOBAN N Ot E11.9 08/31/2015 MARYLOU, BOBAN N Ot I10 08/31/2015 MARYLOU BOBAN N Ot Z79.899 08/31/2015 TYESHA QUINONES GREEN CHAIN MARKER Ot C18.7 08/31/2015 TYESHA QUINONES GREEN CHAIN MARKER Ot C77.2 08/31/2015 TYESHA QUINONES GREEN CHAIN MARKER Ot E11.9 08/31/2015 QUINONESTYESHA Srivastava S GREEN CHAIN MARKER Ot I10 08/31/2015 JONI TYESHA S GREEN CHAIN MARKER Ot Z79.899 08/31/2015 QUINONESTYESHA Srivastava S GREEN CHAIN MARKER Ot C18.7 08/31/2015 QUINONESTYESHA Srivastava S GREEN CHAIN MARKER Ot C77.2 08/31/2015 QIUNONES, TYESHA S GREEN CHAIN MARKER Ot E11.9 08/31/2015 QUINONES, TYESHA S GREEN CHAIN MARKER Ot I10 08/31/2015 QUINONESTYESHA S GREEN CHAIN MARKER Ot Z79.899 08/31/2015 QUINONESTYESHA S GREEN CHAIN MARKER Ot C18.7 08/31/2015 QUINONESTYESHA S GREEN CHAIN MARKER Ot C77.2 08/31/2015 QUINONESTYESHA Srivastava S GREEN CHAIN MARKER Ot E11.9 08/31/2015 QUINONESTYESHA Srivastava S GREEN CHAIN MARKER Ot I10 08/31/2015 JONI TYESHA S GREEN CHAIN MARKER Ot Z79.899 09/27/2015 MARYLOU, BOBAN N Ot C18.7 09/27/2015 MARYLOU, BOBAN N Ot C77.2 09/27/2015 MARYLOU, BOBAN N Ot E11.9 09/27/2015 MARYLOU, BOBAN N Ot I10 09/27/2015 MARYLOU, BOBAN N Ot Z79.899 10/04/2015 QUINONESTYESHA Srivastava S GREEN CHAIN MARKER Ot C18.7 10/04/2015 QUINONESTYESHA Srivastava S GREEN CHAIN MARKER Ot C77.2 10/04/2015 JONI TYESHA S GREEN CHAIN MARKER Ot E11.9 10/04/2015 QUINONESTYESHA S GREEN CHAIN MARKER Ot I10 10/04/2015 QUINONESTYESHA Srivastava S GREEN CHAIN MARKER Ot Z79.899 12/08/2015 JONI TYESHA S GREEN CHAIN MARKER Ot C18.7 12/08/2015 JONI TYESHA S GREEN CHAIN MARKER Ot C77.2 12/08/2015 JONI TYESHA S GREEN CHAIN MARKER Ot E11.9 12/08/2015 QUINONES, TYESHA S GREEN CHAIN MARKER Ot I10 12/08/2015 JONI TYESHA S GREEN CHAIN MARKER Ot Z79.899 01/10/2016 JONI TYESHA S GREEN CHAIN MARKER Ot C18.7 01/10/2016 QUINONES HILAH S GREEN CHAIN MARKER Ot C77.2 01/10/2016 TYESHA QUINONES GREEN CHAIN MARKER Ot E11.9 01/10/2016 TYESHA QUINONES GREEN CHAIN MARKER Ot I10 01/10/2016 TYESHA QUINONES GREEN CHAIN MARKER Ot Z79.899 02/03/2016 JENNIFER HICKMAN Ot C18.7 MALIGNANT NEOPLASM OF SIGMOID COLON 02/03/2016 JENNIFER HICKMAN N Ot C77.2 SECONDARY AND UNSP MALIGNANT NEOPLASM OF 02/03/2016 JENNIFER HICKMAN N Ot E11.9 TYPE 2 DIABETES MELLITUS WITHOUT COMPLIC 02/03/2016 JENNIFER HICKMAN N Ot I10 ESSENTIAL (PRIMARY) HYPERTENSION 02/03/2016 JENNIFER HICKMAN N Ot Z79.899 OTHER SNF (CURRENT) DRUG THERAPY 02/22/2016 JENNIFER HICKMAN N Ot C18.7 MALIGNANT NEOPLASM OF SIGMOID COLON 02/22/2016 JENNIFER HICKMAN N Ot C77.2 SECONDARY AND UNSP MALIGNANT NEOPLASM OF 02/22/2016 JENNIFER HICKMAN N Ot E11.9 TYPE 2 DIABETES MELLITUS WITHOUT COMPLIC 02/22/2016 JENNIFER HICKMAN N Ot I10 ESSENTIAL (PRIMARY) HYPERTENSION 02/22/2016 JENNIFER HICKMAN N Ot Z79.899 OTHER SURGICAL MANAGER (CURRENT) DRUG THERAPY 03/27/2016 CHRISTI ADDISON, FRANCK T Ot R10.13 EPIGASTRIC PAIN 03/27/2016 CHRISTI ADDISON, FRANCK T Ot R11.2 NAUSEA WITH VOMITING, UNSPECIFIED 03/27/2016 Ot 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 03/27/2016 Ot 196.2 MAL RUBIO LYMPH INTRA-ABD 03/27/2016 Ot 250.00 DIAB LARISSA WO COMPL, TYPE II OR UNSPEC TY 03/27/2016 Ot V58.66 LONG-TERM ( CURRENT) USE OF ASPIRIN 03/27/2016 Ot V58.69 OTH MED,LT, CURRENT USE 03/27/2016 Ot V87.41 PERSONAL HISTORY OF ANTINEOPLASTIC CHEMO 03/27/2016 Ot 355.8 MONONEURITIS LEG NOS 03/27/2016 Ot 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 03/27/2016 Ot 196.2 MAL RUBIO LYMPH INTRA-ABD 03/27/2016 Ot 250.00 DIAB LARISSA WO COMPL, TYPE II OR UNSPEC TY 03/27/2016 Ot 355.8 MONONEURITIS LEG NOS 03/27/2016 Ot V58.66 LONG-TERM ( CURRENT) USE OF ASPIRIN 03/27/2016 Ot V58.69 OTH MED,LT, CURRENT USE 03/27/2016 Ot V87.41 PERSONAL HISTORY OF ANTINEOPLASTIC CHEMO 03/27/2016 Ot 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 03/27/2016 Ot 573.8 LIVER DISORDERS NEC 03/27/2016 Ot 574.20 CHOLELITHIASIS NOS 03/27/2016 Ot 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 03/27/2016 Ot 196.2 MAL RUBIO LYMPH INTRA-ABD 03/27/2016 Ot 250.00 DIAB LARISSA WO COMPL, TYPE II OR UNSPEC TY 03/27/2016 Ot V58.66 LONG-TERM ( CURRENT) USE OF ASPIRIN 03/27/2016 Ot V87.41 PERSONAL HISTORY OF ANTINEOPLASTIC CHEMO 03/27/2016 Ot 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 03/27/2016 Ot 196.2 MAL RUBIO LYMPH INTRA-ABD 03/27/2016 Ot 250.00 DIAB LARISSA WO COMPL, TYPE II OR UNSPEC TY 03/27/2016 Ot V58.66 LONG-TERM ( CURRENT) USE OF ASPIRIN 03/27/2016 Ot V87.41 PERSONAL HISTORY OF ANTINEOPLASTIC CHEMO 03/27/2016 Ot 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 03/27/2016 Ot V10.05 HX OF COLONIC MALIGNANCY 03/27/2016 Ot V58.69 OTH MED,LT, CURRENT USE 03/27/2016 Ot V67.2 CHEMOTHERAPY FOLLOW-UP 03/27/2016 Ot 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 03/27/2016 Ot V10.05 HX OF COLONIC MALIGNANCY 03/27/2016 Ot V58.69 OTH MED,LT, CURRENT USE 03/27/2016 Ot V67.2 CHEMOTHERAPY FOLLOW-UP 03/27/2016 Ot 250.00 DIAB LARISSA WO COMPL, TYPE II OR UNSPEC TY 03/27/2016 Ot 401.9 HYPERTENSION NOS 03/27/2016 Ot 440.9 ATHEROSCLEROSIS NOS 03/27/2016 Ot 574.20 CHOLELITHIASIS NOS 03/27/2016 Ot 786.09 RESPIRATORY ABNORM NEC 03/27/2016 Ot V58.69 OTH MED,LT, CURRENT USE 03/27/2016 Ot 250.00 DIAB LARISSA WO COMPL, TYPE II OR UNSPEC TY 03/27/2016 Ot 272.4 HYPERLIPIDEMIA NEC/NOS 03/27/2016 Ot 401.9 HYPERTENSION NOS 03/27/2016 Ot 786.09 RESPIRATORY ABNORM NEC 03/27/2016 GEREMIAS UMANZOR GREEN CHAIN MARKER Ot 401.9 HYPERTENSION NOS 03/27/2016 Ot 250.00 DIAB LARISSA WO COMPL, TYPE II OR UNSPEC TY 03/27/2016 Ot 272.4 HYPERLIPIDEMIA NEC/NOS 03/27/2016 Ot 401.9 HYPERTENSION NOS 03/27/2016 Ot 786.09 RESPIRATORY ABNORM NEC 03/27/2016 Ot 794.39 ABN CARDIOVASC STUDY NEC 03/27/2016 Ot V58.66 LONG-TERM ( CURRENT) USE OF ASPIRIN 03/27/2016 Ot V58.69 OTH MED,LT, CURRENT USE 03/27/2016 Ot V72.63 PRE- PROCEDURAL LABORATORY EXAMINATION 03/27/2016 Ot V72.81 EXAM-PRE- OPERATIVE CARDIOVASCULAR 03/27/2016 TYESHA QUINONES GREEN CHAIN MARKER Ot 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 03/27/2016 LORA ADDISON, SWETA Tan Ot V72.84 EXAM PRE-OPERATIVE NOS 03/27/2016 LORA ADDISON, SWETA M Ot 574.20 CHOLELITHIASIS NOS 03/27/2016 LORA ADDISON, SWETA M Ot V72.63 PRE-PROCEDURAL LABORATORY EXAMINATION 03/27/2016 LORA ADDISON, SWETA M Ot V74.8 SCREEN-BACTERIAL DIS NEC 03/27/2016 TYESHA QUINONES GREEN CHAIN MARKER Ot V10.05 HX OF COLONIC MALIGNANCY 03/27/2016 TYESHA QUINONES GREEN CHAIN MARKER Ot V67.2 CHEMOTHERAPY FOLLOW-UP 03/27/2016 TYESHA QUINONES GREEN CHAIN MARKER Ot 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 03/27/2016 JENNIFER HICKMAN Ot C18.7 MALIGNANT NEOPLASM OF SIGMOID COLON 03/27/2016 JENNIFER HICKMAN Ot C77.2 SECONDARY AND UNSP MALIGNANT NEOPLASM OF 03/27/2016 JENNIFER HICKMAN Ot E11.9 TYPE 2 DIABETES MELLITUS WITHOUT COMPLIC 03/27/2016 JENNIFER HICKMAN Ot I10 ESSENTIAL (PRIMARY) HYPERTENSION 03/27/2016 JENNIFER HICKMAN Ot Z79.899 OTHER SURGICAL MANAGER (CURRENT) DRUG THERAPY 03/27/2016 TYESHA QUINONES GREEN CHAIN MARKER Ot C18.7 MALIGNANT NEOPLASM OF SIGMOID COLON 03/27/2016 TYESHA QUINONES GREEN CHAIN MARKER Ot C77.2 SECONDARY AND UNSP MALIGNANT NEOPLASM OF 03/27/2016 TYESAH QUINONES GREEN CHAIN MARKER Ot E11.9 TYPE 2 DIABETES MELLITUS WITHOUT COMPLIC 03/27/2016 TYESHA QUINONES GREEN CHAIN MARKER Ot I10 ESSENTIAL (PRIMARY) HYPERTENSION 03/27/2016 TYESHA QUINONES GREEN CHAIN MARKER Ot Z79.899 OTHER SNF (CURRENT) DRUG THERAPY 03/27/2016 JENNIFER HICKMAN Ot C18.7 MALIGNANT NEOPLASM OF SIGMOID COLON 03/27/2016 JENNIFER HICKMAN Ot C77.2 SECONDARY AND UNSP MALIGNANT NEOPLASM OF 03/27/2016 JENNIFER HICKMAN Ot E11.9 TYPE 2 DIABETES MELLITUS WITHOUT COMPLIC 03/27/2016 JENNIFER HICKMAN Ot I10 ESSENTIAL (PRIMARY) HYPERTENSION 03/27/2016 JENNIFER HICKMAN Ot Z79.899 OTHER SNF (CURRENT) DRUG THERAPY 03/28/2016 CHRISTI ADDISON, FRANCK T Ot R10.13 EPIGASTRIC PAIN 03/28/2016 CHRISTI ADDISON, FRANCK T Ot R11.2 NAUSEA WITH VOMITING, UNSPECIFIED 07/07/2016 LORA ADDISON, SWETA Tan Ot Z01.818 ENCOUNTER FOR OTHER PREPROCEDURAL EXAMIN 07/07/2016 LORA ADDISON, SWETA Tan Ot Z85.038 PERSONAL HISTORY OF MALIGNANT NEOPLASM O 07/07/2016 LORA ADDISON, SWETA Tan Ot Z01.818 ENCOUNTER FOR OTHER PREPROCEDURAL EXAMIN 07/07/2016 LORA ADDISON, SWETA Tan Ot Z85.038 PERSONAL HISTORY OF MALIGNANT NEOPLASM O 07/10/2016 Ot 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 07/10/2016 Ot 196.2 MAL RUBIO LYMPH INTRA-ABD 07/10/2016 Ot 250.00 DIAB LARISSA WO COMPL, TYPE II OR UNSPEC TY 07/10/2016 Ot V58.66 LONG-TERM ( CURRENT) USE OF ASPIRIN 07/10/2016 Ot V58.69 OTH MED,LT, CURRENT USE 07/10/2016 Ot V87.41 PERSONAL HISTORY OF ANTINEOPLASTIC CHEMO 07/10/2016 Ot 355.8 MONONEURITIS LEG NOS 07/10/2016 Ot 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 07/10/2016 Ot 196.2 MAL RUBIO LYMPH INTRA-ABD 07/10/2016 Ot 250.00 DIAB LARISSA WO COMPL, TYPE II OR UNSPEC TY 07/10/2016 Ot 355.8 MONONEURITIS LEG NOS 07/10/2016 Ot V58.66 LONG-TERM ( CURRENT) USE OF ASPIRIN 07/10/2016 Ot V58.69 OTH MED,LT, CURRENT USE 07/10/2016 Ot V87.41 PERSONAL HISTORY OF ANTINEOPLASTIC CHEMO 07/10/2016 Ot 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 07/10/2016 Ot 573.8 LIVER DISORDERS NEC 07/10/2016 Ot 574.20 CHOLELITHIASIS NOS 07/10/2016 Ot 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 07/10/2016 Ot 196.2 MAL RUBIO LYMPH INTRA-ABD 07/10/2016 Ot 250.00 DIAB LARISSA WO COMPL, TYPE II OR UNSPEC TY 07/10/2016 Ot V58.66 LONG-TERM ( CURRENT) USE OF ASPIRIN 07/10/2016 Ot V87.41 PERSONAL HISTORY OF ANTINEOPLASTIC CHEMO 07/10/2016 Ot 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 07/10/2016 Ot 196.2 MAL RUBIO LYMPH INTRA-ABD 07/10/2016 Ot 250.00 DIAB LARISSA WO COMPL, TYPE II OR UNSPEC TY 07/10/2016 Ot V58.66 LONG-TERM ( CURRENT) USE OF ASPIRIN 07/10/2016 Ot V87.41 PERSONAL HISTORY OF ANTINEOPLASTIC CHEMO 07/10/2016 Ot 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 07/10/2016 Ot V10.05 HX OF COLONIC MALIGNANCY 07/10/2016 Ot V58.69 OTH MED,LT, CURRENT USE 07/10/2016 Ot V67.2 CHEMOTHERAPY FOLLOW-UP 07/10/2016 Ot 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 07/10/2016 Ot V10.05 HX OF COLONIC MALIGNANCY 07/10/2016 Ot V58.69 OTH MED,LT, CURRENT USE 07/10/2016 Ot V67.2 CHEMOTHERAPY FOLLOW-UP 07/10/2016 Ot 250.00 DIAB LARISSA WO COMPL, TYPE II OR UNSPEC TY 07/10/2016 Ot 401.9 HYPERTENSION NOS 07/10/2016 Ot 440.9 ATHEROSCLEROSIS NOS 07/10/2016 Ot 574.20 CHOLELITHIASIS NOS 07/10/2016 Ot 786.09 RESPIRATORY ABNORM NEC 07/10/2016 Ot V58.69 OTH MED,LT, CURRENT USE 07/10/2016 Ot 250.00 DIAB LARISSA WO COMPL, TYPE II OR UNSPEC TY 07/10/2016 Ot 272.4 HYPERLIPIDEMIA NEC/NOS 07/10/2016 Ot 401.9 HYPERTENSION NOS 07/10/2016 Ot 786.09 RESPIRATORY ABNORM NEC 07/10/2016 GEREMIAS UMANZOR GREEN CHAIN MARKER Ot 401.9 HYPERTENSION NOS 07/10/2016 Ot 250.00 DIAB LARISSA WO COMPL, TYPE II OR UNSPEC TY 07/10/2016 Ot 272.4 HYPERLIPIDEMIA NEC/NOS 07/10/2016 Ot 401.9 HYPERTENSION NOS 07/10/2016 Ot 786.09 RESPIRATORY ABNORM NEC 07/10/2016 Ot 794.39 ABN CARDIOVASC STUDY NEC 07/10/2016 Ot V58.66 LONG-TERM ( CURRENT) USE OF ASPIRIN 07/10/2016 Ot V58.69 OTH MED,LT, CURRENT USE 07/10/2016 Ot V72.63 PRE- PROCEDURAL LABORATORY EXAMINATION 07/10/2016 Ot V72.81 EXAM-PRE- OPERATIVE CARDIOVASCULAR 07/10/2016 TYESHA QUINONES GREEN CHAIN MARKER Ot 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 07/10/2016 LORA ADDISON, SWETA Tan Ot V72.84 EXAM PRE-OPERATIVE NOS 07/10/2016 LORA ADDISON, SWETA Tan Ot 574.20 CHOLELITHIASIS NOS 07/10/2016 LORA ADDISON, SWETA Tan Ot V72.63 PRE-PROCEDURAL LABORATORY EXAMINATION 07/10/2016 LORA ADDISON, SWETA Tan Ot V74.8 SCREEN-BACTERIAL DIS NEC 07/10/2016 TYESHA QUINONES GREEN CHAIN MARKER Ot V10.05 HX OF COLONIC MALIGNANCY 07/10/2016 TYESHA QUINONES GREEN CHAIN MARKER Ot V67.2 CHEMOTHERAPY FOLLOW-UP 07/10/2016 TYESHA QUINONES GREEN CHAIN MARKER Ot 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 07/10/2016 JENNIFER HICKMAN Ot C18.7 MALIGNANT NEOPLASM OF SIGMOID COLON 07/10/2016 JENNIFER HICKMAN Ot C77.2 SECONDARY AND UNSP MALIGNANT NEOPLASM OF 07/10/2016 JENNIFER HICKMAN Ot E11.9 TYPE 2 DIABETES MELLITUS WITHOUT COMPLIC 07/10/2016 JENNIFER HICKMAN Ot I10 ESSENTIAL (PRIMARY) HYPERTENSION 07/10/2016 JENNIFER HICKMAN Ot Z79.899 OTHER SURGICAL MANAGER (CURRENT) DRUG THERAPY 07/10/2016 TYESHA QUINONES GREEN CHAIN MARKER Ot C18.7 MALIGNANT NEOPLASM OF SIGMOID COLON 07/10/2016 TYESHA QUINONES GREEN CHAIN MARKER Ot C77.2 SECONDARY AND UNSP MALIGNANT NEOPLASM OF 07/10/2016 TYESHA QUINONES GREEN CHAIN MARKER Ot E11.9 TYPE 2 DIABETES MELLITUS WITHOUT COMPLIC 07/10/2016 TYESHA QUINONES GREEN CHAIN MARKER Ot I10 ESSENTIAL (PRIMARY) HYPERTENSION 07/10/2016 TYESHA QUINONES GREEN CHAIN MARKER Ot Z79.899 OTHER SURGICAL MANAGER (CURRENT) DRUG THERAPY 07/10/2016 MARYLOU JENNIFER Storey Ot C18.7 MALIGNANT NEOPLASM OF SIGMOID COLON 07/10/2016 MARYLOUJENNIFER Ot C77.2 SECONDARY AND UNSP MALIGNANT NEOPLASM OF 07/10/2016 MARYLOU JENNIFER N Ot E11.9 TYPE 2 DIABETES MELLITUS WITHOUT COMPLIC 07/10/2016 MARYLOUJENNIFER N Ot I10 ESSENTIAL (PRIMARY) HYPERTENSION 07/10/2016 MARYLOUJENNIFER N Ot Z79.899 OTHER SURGICAL MANAGER (CURRENT) DRUG THERAPY 07/10/2016 LORA ADDISON, SWETA M Ot Z08 ENCNTR FOR FOLLOW-UP EXAM AFTER TRTMT FO 07/10/2016 LORA ADDISON, SWETA M Ot Z85.038 PERSONAL HISTORY OF MALIGNANT NEOPLASM O 07/11/2016 LORA ADDISON, SEWTA M Ot Z09 ENCNTR FOR F/U EXAM AFT TRTMT FOR COND O 07/11/2016 LORA ADDISON, SWETA M Ot Z85.038 PERSONAL HISTORY OF MALIGNANT NEOPLASM O 07/11/2016 LORA ADDISON, SWETA M Ot Z08 ENCNTR FOR FOLLOW-UP EXAM AFTER TRTMT FO 07/11/2016 LORA ADDISON, SWETA M Ot Z85.038 PERSONAL HISTORY OF MALIGNANT NEOPLASM O 10/12/2016 JENNIFER HICKMAN N Ot Z08 ENCNTR FOR FOLLOW-UP EXAM AFTER TRTMT FO 10/12/2016 JENNIFER HICKMAN N Ot Z85.038 PERSONAL HISTORY OF MALIGNANT NEOPLASM O 10/12/2016 JENNIFER HICKMAN N Ot Z08 ENCNTR FOR FOLLOW-UP EXAM AFTER TRTMT FO 10/12/2016 JENNIFER HICKMAN N Ot Z85.038 PERSONAL HISTORY OF MALIGNANT NEOPLASM O 11/14/2016 JENNIFER HICKMAN N Ot Z08 ENCNTR FOR FOLLOW-UP EXAM AFTER TRTMT FO 11/14/2016 JENNIFER HICKMAN N Ot Z85.038 PERSONAL HISTORY OF MALIGNANT NEOPLASM O 01/08/2017 KURT ADDISON FACC, ALI FACP CCDS Ot I25.10 ATHSCL HEART DISEASE OF [place] CORONARY 01/08/2017 KURT ADDISON FACC, ALI FACP CCDS Ot I25.10 ATHSCL HEART DISEASE OF [place] CORONARY 01/08/2017 KURT ADDISON FACC, ALI FACP CCDS Ot E11.9 TYPE 2 DIABETES MELLITUS WITHOUT COMPLIC 01/08/2017 KURT ADDISON FACC, ALI FACP CCDS Ot G47.33 OBSTRUCTIVE SLEEP APNEA (ADULT) (PEDIATR 01/08/2017 KURT ADDISON FACC, ALI FACP CCDS Ot I10 ESSENTIAL (PRIMARY) HYPERTENSION 01/08/2017 KURT ADDISON FACC, ALI FACP CCDS Ot I25.10 ATHSCL HEART DISEASE OF [place] CORONARY 01/08/2017 KURT ADDISON FACC, ALI FACP CCDS Ot I65.23 OCCLUSION AND STENOSIS OF BILATERAL [place] 01/08/2017 KURT ADDISON FACC, ALI FACP CCDS Ot Z87.891 PERSONAL HISTORY OF NICOTINE DEPENDENCE 01/10/2017 KURT ADDISON FACC, ALI FACP CCDS Ot E11.9 TYPE 2 DIABETES MELLITUS WITHOUT COMPLIC 01/10/2017 KURT ADDISON FACC, ALI FACP CCDS Ot G47.33 OBSTRUCTIVE SLEEP APNEA (ADULT) (PEDIATR 01/10/2017 KURT ADDISON FACC, ALI FACP CCDS Ot I10 ESSENTIAL (PRIMARY) HYPERTENSION 01/10/2017 KURT ADDISON FACC, ALI FACP CCDS Ot I25.10 ATHSCL HEART DISEASE OF [place] CORONARY 01/10/2017 KURT ADDISON FACC, ALI FACP CCDS Ot I65.23 OCCLUSION AND STENOSIS OF BILATERAL [place] 01/10/2017 KURT ADDISON FACC, ALI FACP CCDS Ot Z87.891 PERSONAL HISTORY OF NICOTINE DEPENDENCE 01/12/2017 KURT ADDISON FACC, ALI FACP CCDS Ot E11.9 TYPE 2 DIABETES MELLITUS WITHOUT COMPLIC 01/12/2017 KURT ADDISON FACC, ALI FACP CCDS Ot G47.33 OBSTRUCTIVE SLEEP APNEA (ADULT) (PEDIATR 01/12/2017 KURT ADDISON FACC, ALI FACP CCDS Ot I10 ESSENTIAL (PRIMARY) HYPERTENSION 01/12/2017 KURT ADDISON FACC, ALI FACP CCDS Ot I25.10 ATHSCL HEART DISEASE OF [place] CORONARY 01/12/2017 KURT MD FACC, ALI FACP CCDS Ot I65.23 OCCLUSION AND STENOSIS OF [place]ILATERAL [place] 01/12/2017 KURT ADDISON FACC, ALI FACP CCDS Ot Z87.891 PERSONAL HISTORY OF NICOTINE DEPENDENCE 02/06/2017 KURT ADDISON FACC, ALI FACP CCDS Ot E11.9 TYPE 2 DIABETES MELLITUS WITHOUT COMPLIC 02/06/2017 KURT ADDISON FACC, ALI FACP CCDS Ot G47.33 OBSTRUCTIVE SLEEP APNEA (ADULT) (PEDIATR 02/06/2017 KURT COLINC, ALI FACP CCDS Ot I10 ESSENTIAL (PRIMARY) HYPERTENSION 02/06/2017 KURT ADDISON FACC, ALI FACP CCDS Ot I25.10 ATHSCL HEART DISEASE OF [place] CORONARY 02/06/2017 KURT COLINC, ALI FACP CCDS Ot I65.23 OCCLUSION AND STENOSIS OF [place]ATERAL [place] 02/06/2017 KURT ADDISON FACC, ALI FACP CCDS Ot Z87.891 PERSONAL HISTORY OF NICOTINE DEPENDENCE 02/07/2017 KURT ADDISON FACC, ALI FACP CCDS Ot E11.9 TYPE 2 DIABETES MELLITUS WITHOUT COMPLIC 02/07/2017 KURT COLINC, ALI FACP CCDS Ot G47.33 OBSTRUCTIVE SLEEP APNEA (ADULT) (PEDIATR 02/07/2017 KURT ADDISON FACC, ALI FACP CCDS Ot I10 ESSENTIAL (PRIMARY) HYPERTENSION 02/07/2017 KURT COLINC, ALI FACP CCDS Ot I25.10 ATHSCL HEART DISEASE OF [place] CORONARY 02/07/2017 KURT COLINC, ALI FACP CCDS Ot I65.23 OCCLUSION AND STENOSIS OF [place]ILATERAL [place] 02/07/2017 KURT ADDISON FACC, ALI FACP CCDS Ot Z87.891 PERSONAL HISTORY OF NICOTINE DEPENDENCE 04/23/2017 KURT ADDISON FACC, ALI FACP CCDS Ot E11.9 TYPE 2 DIABETES MELLITUS WITHOUT COMPLIC 04/23/2017 KURT ADDISON FACC, ALI FACP CCDS Ot G47.33 OBSTRUCTIVE SLEEP APNEA (ADULT) (PEDIATR 04/23/2017 KURT ADDISON FACC, ALI FACP CCDS Ot I10 ESSENTIAL (PRIMARY) HYPERTENSION 04/23/2017 KURT ADDISON FACC, ALI FACP CCDS Ot I25.10 ATHSCL HEART DISEASE OF [place] CORONARY 04/23/2017 KURT COLINC, ALI FACP CCDS Ot I65.23 OCCLUSION AND STENOSIS OF [place] 04/23/2017 KURT ADDISON [facility], ALI FACP CCDS Ot Z87.891 PERSONAL HISTORY OF NICOTINE DEPENDENCE 04/26/2017 KURT COLIN, ALI FACP CCDS Ot E11.9 TYPE 2 DIABETES MELLITUS WITHOUT COMPLIC 04/26/2017 KURT COLIN, ALI FACP CCDS Ot G47.33 OBSTRUCTIVE SLEEP APNEA (ADULT) (PEDIATR 04/26/2017 KURT ADDISON [facility], ALI FACP CCDS Ot I10 ESSENTIAL (PRIMARY) HYPERTENSION 04/26/2017 KURT ADDISON [facility], ALI FACP CCDS Ot I25.10 ATHSCL HEART DISEASE OF [place] CORONARY 04/26/2017 KURT COLIN, ALI FACP CCDS Ot I65.23 OCCLUSION AND STENOSIS OF [place] 04/26/2017 KURT ADDISON [facility], ALI FACP CCDS Ot Z87.891 PERSONAL HISTORY OF NICOTINE DEPENDENCE 09/04/2017 AVERY PEREZ MD Ot Z08 ENCNTR FOR FOLLOW-UP EXAM AFTER TRTMT FO 09/04/2017 AVERY PEREZ MD Ot Z85.038 PERSONAL HISTORY OF MALIGNANT NEOPLASM O 10/09/2017 AVERY PEREZ MD Ot Z08 ENCNTR FOR FOLLOW-UP EXAM AFTER TRTMT FO 10/09/2017 AVERY PEREZ MD Ot Z85.038 PERSONAL HISTORY OF MALIGNANT NEOPLASM O 10/11/2017 AVERY PEREZ MD Ot Z08 ENCNTR FOR FOLLOW-UP EXAM AFTER TRTMT FO 10/11/2017 AVERY PEREZ MD Ot Z85.038 PERSONAL HISTORY OF MALIGNANT NEOPLASM O 12/02/2017 AVERY PEREZ MD Ot Z08 ENCNTR FOR FOLLOW-UP EXAM AFTER TRTMT FO 12/02/2017 AVERY PEREZ MD Ot Z85.038 PERSONAL HISTORY OF MALIGNANT NEOPLASM O 06/26/2018 AVERY PEREZ MD Ot Z08 ENCNTR FOR FOLLOW-UP EXAM AFTER TRTMT FO 06/26/2018 AVERY PEREZ MD Ot Z85.038 PERSONAL HISTORY OF MALIGNANT NEOPLASM O 06/26/2018 LORA ADDISON, SWETA Tan Ot Z01.818 ENCOUNTER FOR OTHER PREPROCEDURAL EXAMIN 06/26/2018 GEREMIAS UMANZOR GREEN CHAIN MARKER Ot 401.9 HYPERTENSION NOS 06/26/2018 TYESHA QUINONES GREEN CHAIN MARKER Ot 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 06/26/2018 LORA ADDISON, SWETA Tan Ot V72.84 EXAM PRE-OPERATIVE NOS 06/26/2018 LORA ADDISON, SWETA Tan Ot 574.20 CHOLELITHIASIS NOS 06/26/2018 LORA ADDISON, SWETA Tan Ot V72.63 PRE-PROCEDURAL LABORATORY EXAMINATION 06/26/2018 LORA ADDISON, SWETA Tan Ot V74.8 SCREEN-BACTERIAL DIS NEC 06/26/2018 QUINONES TYESHA S GREEN CHAIN MARKER Ot V10.05 HX OF COLONIC MALIGNANCY 06/26/2018 QUINONES TYESHA S GREEN CHAIN MARKER Ot V67.2 CHEMOTHERAPY FOLLOW-UP 06/26/2018 TYESHA QUINONES S GREEN CHAIN MARKER Ot 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 06/26/2018 MARYLOU BOBAN N Ot C18.7 MALIGNANT NEOPLASM OF SIGMOID COLON 06/26/2018 MARYLOU, BOBAN N Ot C77.2 SECONDARY AND UNSP MALIGNANT NEOPLASM OF 06/26/2018 MARYLOU, BOBAN N Ot E11.9 TYPE 2 DIABETES MELLITUS WITHOUT COMPLIC 06/26/2018 MARYLOU BOBAN N Ot I10 ESSENTIAL (PRIMARY) HYPERTENSION 06/26/2018 MARYLOU BOBAN N Ot Z79.899 OTHER SNF (CURRENT) DRUG THERAPY 06/26/2018 QUINONES TYESHA S GREEN CHAIN MARKER Ot C18.7 MALIGNANT NEOPLASM OF SIGMOID COLON 06/26/2018 QUINONESGABOBBI S GREEN CHAIN MARKER Ot C77.2 SECONDARY AND UNSP MALIGNANT NEOPLASM OF 06/26/2018 JONI TYESHA S GREEN CHAIN MARKER Ot E11.9 TYPE 2 DIABETES MELLITUS WITHOUT COMPLIC 06/26/2018 GA QUINONESBOBBI S GREEN CHAIN MARKER Ot I10 ESSENTIAL (PRIMARY) HYPERTENSION 06/26/2018 JONI TYESHA S GREEN CHAIN MARKER Ot Z79.899 OTHER SURGICAL MANAGER (CURRENT) DRUG THERAPY 06/26/2018 MARYLOUJAVIER HARRINGTONAN N Ot C18.7 MALIGNANT NEOPLASM OF SIGMOID COLON 06/26/2018 MARYLOU BOBAN N Ot C77.2 SECONDARY AND UNSP MALIGNANT NEOPLASM OF 06/26/2018 MARYLOU BOBAN N Ot E11.9 TYPE 2 DIABETES MELLITUS WITHOUT COMPLIC 06/26/2018 MARYLOU BOBAN N Ot I10 ESSENTIAL (PRIMARY) HYPERTENSION 06/26/2018 MARYLOU BOBAN N Ot Z79.899 OTHER SNF (CURRENT) DRUG THERAPY 06/26/2018 KURT ADDISON FACC, ALI FACP CCDS Ot E11.9 TYPE 2 DIABETES MELLITUS WITHOUT COMPLIC 06/26/2018 KURT FACC, ALI FACP CCDS Ot G47.33 OBSTRUCTIVE SLEEP APNEA (ADULT) (PEDIATR 06/26/2018 KURT MD FACC, ALI FACP CCDS Ot I10 ESSENTIAL (PRIMARY) HYPERTENSION 06/26/2018 KURT MD FACC, ALI FACP CCDS Ot I25.10 ATHSCL HEART DISEASE OF [place] CORONARY 06/26/2018 KURT MD FACC, ALI FACP CCDS Ot I65.23 OCCLUSION AND STENOSIS OF [place]ATERAL [place] 06/26/2018 KURT MD FACC, ALI FACP CCDS Ot Z87.891 PERSONAL HISTORY OF NICOTINE DEPENDENCE 06/26/2018 KURT MD FACC, ALI FACP CCDS Ot E11.9 TYPE 2 DIABETES MELLITUS WITHOUT COMPLIC 06/26/2018 KURT MD FACC, ALI FACP CCDS Ot G47.33 OBSTRUCTIVE SLEEP APNEA (ADULT) (PEDIATR 06/26/2018 KURT MD FACC, ALI FACP CCDS Ot I10 ESSENTIAL (PRIMARY) HYPERTENSION 06/26/2018 KURT MD FACC, ALI FACP CCDS Ot I25.10 ATHSCL HEART DISEASE OF [place] CORONARY 06/26/2018 KURT ADDISON FACC, ALI FACP CCDS Ot I65.23 OCCLUSION AND STENOSIS OF [place]ATERAL [place] 06/26/2018 KURT ADDISON FACC, ALI FACP CCDS Ot Z87.891 PERSONAL HISTORY OF NICOTINE DEPENDENCE 06/26/2018 AVERY PEREZ MD Ot Z08 ENCNTR FOR FOLLOW-UP EXAM AFTER TRTMT FO 06/26/2018 AVERY PEREZ MD Ot Z85.038 PERSONAL HISTORY OF MALIGNANT NEOPLASM O 06/27/2018 LORA ADDISON, SWETA Tan Ot Z01.818 ENCOUNTER FOR OTHER PREPROCEDURAL EXAMIN Procedures Code [place] [address] UA LONG DIP 09/26/2013 Results There is no data. Encounters ACCT No. Visit Date/Time Discharge Status Pt. Type Provider Facility Loc./Unit Complaint [id number] 09/12/2014 10:56:00 09/12/2014 23:59:59 CLS Outpatient TIGRE SANDERSON APRN [id number] 09/26/2013 13:08:00 09/26/2013 23:59:59 CLS Outpatient FRANCESCA ETIENNE DO [id number] 08/27/2017 21:17:34 08/27/2017 23:59:59 CLS Outpatient [id number] 06/25/2018 06:20:00 06/25/2018 23:59:59 CLS Outpatient SWETA PAULINO MD [facility] PREOP COLONOSCOPY [id number] 12/03/2017 00:23:00 12/03/2017 23:59:59 CLS Preadmit AVERY PEREZ MD [facility] ONC [id number] 09/12/2017 07:55:00 12/02/2017 00:01:00 DIS Outpatient AVERY PEREZ MD [facility] ONC [id number] 01/11/2017 07:19:00 01/11/2017 23:59:59 CLS Outpatient KURT ADDISON FACC, ALI FACP CCDS [facility] CARD CAD,HTN,HX OF TOBACCO USE [id number] 01/08/2017 07:31:00 01/08/2017 23:59:59 CLS Outpatient KURT ADDISON FACC, ALI FACEstrella CCDS [facility] CARD CAD,HTN,HX OF TOBACCO USE [id number] 08/23/2016 10:20:00 11/14/2016 00:01:00 DIS Outpatient JENNIFER HICKMAN [facility] ONC [id number] 07/10/2016 11:18:00 07/10/2016 15:10:00 DIS Outpatient SWETA PAULINO MD [facility] SDC HX SIGMOID COLON CANCER [id number] 07/07/2016 12:30:00 07/07/2016 12:37:00 DIS Outpatient SWETA PAULINO MD [facility] PREOP HX SIGMOID COLON CANCER [id number] 03/27/2016 03:44:00 03/27/2016 05:02:00 DIS Emergency FRANCK BARRAZA MD [facility] ER ABD PAIN,VOMITING [id number] 02/02/2016 09:05:00 02/02/2016 23:59:59 CLS Outpatient JENNIFER HICKMAN [facility] ONC [id number] 08/12/2015 13:26:00 08/12/2015 23:59:59 CLS Outpatient TYESHA QUINONES GREEN CHAIN MARKER [facility] ONC [id number] 08/05/2015 10:17:00 08/05/2015 23:59:59 CLS Outpatient MARYLOUJENNIFER Raleigh [facility] ONC LAB [id number] 04/09/2015 13:49:00 04/09/2015 15:41:00 DIS Emergency MARCO GREY MD [facility] ER [id number] 08/06/2014 15:25:00 08/19/2014 00:01:00 DIS Outpatient JENNIFER HICKMAN [facility] ONC LAB [id number] 05/25/2014 07:18:00 05/25/2014 23:59:59 CLS Outpatient TYESHA QUINONES GREEN CHAIN MARKER [facility] RAD COLON CA [id number] 02/03/2014 16:15:00 05/04/2014 00:01:00 DIS Outpatient JENNIFER HICKMAN [facility] ONC LAB [id number] 02/11/2014 14:55:00 02/11/2014 23:59:59 CLS Outpatient TYESHA QUINONES GREEN CHAIN MARKER [facility] ONC [id number] 08/14/2013 14:49:00 11/12/2013 00:01:00 DIS Outpatient JENNIFER HICKMAN [facility] ONC LAB [id number] 05/15/2013 15:20:00 08/13/2013 00:01:00 DIS Outpatient JENNIFER HICKMAN [facility] ONC LAB [id number] 07/23/2013 06:05:00 07/23/2013 11:35:00 DIS Outpatient SWETA PAULINO MD [facility] SDC GALLSTONES [id number] 07/17/2013 11:39:00 07/17/2013 23:59:59 CLS Outpatient SWETA PAULINO MD [facility] PREOP GALLSTONES [id number] 06/02/2013 07:24:00 06/02/2013 10:15:00 DIS Outpatient SWETA PAULINO MD [facility] SDC COLON CANCER [id number] 05/28/2013 07:27:00 05/28/2013 23:59:59 CLS Outpatient SWETA PAULINO MD [facility] PREOP COLON CANCER [id number] 05/20/2013 08:21:00 05/20/2013 23:59:59 CLS Outpatient JONI TYESHA Carola COVARRUBIAS [facility] RAD COLON CA [id number] 02/10/2013 14:57:00 05/05/2013 00:01:00 DIS Outpatient JENNIFER HICKMAN [facility] ONC LAB [id number] 04/30/2013 07:50:00 04/30/2013 23:59:59 CLS Outpatient ALVARORADHAGEREMIAS [facility] CARD PULMONARY HTN [id number] 07/01/2018 10:15:00 PEN Preadmit SWETA PAULINO MD [facility] ENDO HX COLON CANCER [id number] 08/31/2015 08:40:00 Document Registration [id number] 08/31/2015 08:40:00 Document Registration [id number] 08/31/2015 08:40:00 Document Registration [id number] 08/31/2015 08:40:00 Document Registration [id number] 12/13/2012 07:05:00 Document Registration [id number] 12/11/2012 08:14:00 Document Registration [id number] 10/31/2012 08:11:00 Document Registration [id number] 10/24/2012 09:06:00 Document Registration [id number] 08/12/2012 14:22:00 Document Registration [id number] 08/06/2012 20:00:00 Document Registration [id number] 05/21/2012 14:54:00 Document Registration [id number] 05/20/2012 09:36:00 Document Registration [id number] 02/20/2012 14:58:00 Document Registration [id number] 11/20/2011 14:25:00 Document Registration [id number] 11/15/2011 07:33:00 Document Registration [id number] 08/24/2011 14:55:00 Document Registration [id number] 08/15/2011 08:58:00 Document Registration [id number] 08/14/2011 15:00:00 Document Registration [id number] 05/22/2011 14:44:00 Document Registration [id number] 03/21/2011 15:00:00 Document Registration [id number] 02/27/2011 15:01:00 Document Registration [id number] 11/21/2010 14:49:00 Document Registration [id number] 08/22/2010 14:57:00 Document Registration [id number] 08/16/2010 07:58:00 Document Registration [id number] 07/04/2010 06:39:00 Document Registration [id number] 06/27/2010 15:33:00 Document Registration [id number] 03/28/2010 15:27:00 Document Registration [id number] 12/27/2009 15:25:00 Document Registration [id number] 09/29/2009 15:41:00 Document Registration [id number] 07/09/2009 11:52:00 Document Registration [id number] 07/08/2009 16:07:00 Document Registration [id number] 07/04/2009 08:53:00 Document Registration [id number] 06/09/2009 12:14:00 Document Registration [id number] 04/09/2018 17:10:00 04/09/2018 23:59:59 CLS Outpatient MARGARITA GOLD LAC [id number] 04/10/2015 04:54:26 ACT Document Registration
[2018-07-01] MEDS ORDERED: fentaNYL INJECTION 100 MCG/2 ML AMP IVP ONE (09:45)
[2018-07-01] MEDS ORDERED: MIDAZOLAM 2 MG/2 ML (VERSED) VIAL IVP ONE (09:45)
[2018-07-01 10:40] VITALS: BP 161/82
--- NOTE | 2018-07-01 10:41 | Conscious Sedation/ASA ---
Conscious Sedation Pre-Proced Time Reviewed: 10:41 ASA Class: 2 Airway Mallampati Classification: (koi appropriate class) I. II. III, IV Lungs Heart ASA score ASA 1: a normal healthy patient ASA 2: a patient with a mild systemic disease (mid diabetes, controlled hypertension, obesity ASA 3: a patient with a severe systemic disease that limits activity (angina , COPD, prior Myocardial infarction) ASA 4: a patient with an incapacitating disease that is a constant threat to life (CHF, renal failure) ASA 5: a moribund patient not expected to survive 24 hrs. (ruptured aneurysm) ASA 6: a declared brain patient whose organs are being harvested. For emergent operations, add the letter E after the classification Grade 1 Sedation Plan: Discussed options with patient/fam Note The patient is an appropriate candidate to undergo the planned procedure, sedation, and anesthesia. The patient immediately re-assessed prior to indication. SWETA PAULINO MD Jul 01, 2018 10:41
--- NOTE | 2018-07-01 10:41 | History & Physicial ---
History of Present Illness History of Present Illness Reason for visit/HPI to undergo surveillance colonoscopy. History of sigmoid carcinoma in 2008 Date of Admission 07/01/18 Date Seen by Provider: Jul 01, 2018 Time Seen by Provider: 10:39 I consulted on this patient on 07/01/18 10:39 Attending Physician Sweta Cotto MD Admitting Physician Ambreen Kaur MD Consult Allergies and Home Medications Allergies Coded Allergies: No Known Drug Allergies (Verified , 06/26/18) Home Medications Amlodipine Besylate 10 Mg Tablet, 1 EACH PO DAILY, (Reported) Atorvastatin Calcium 40 Mg Tablet, 40 MG PO DAILY, (Reported) Cholestyramine (with Sugar) 378 Gm Powder, 378 GM PO DAILY, (Reported) Doxazosin Mesylate 4 Mg Tablet, 6 MG PO BID, (Reported) Glipizide 5 Mg Tablet, 1 EACH PO BID, (Reported) Lisinopril 40 Mg Tablet, 40 MG PO DAILY, (Reported) Metformin HCl 500 Mg Tablet, 500 MG PO BID, (Reported) Metoprolol Succinate 100 Mg Tab.er.24h, 100 MG PO DAILY, (Reported) Multivitamins 1 Each Capsule, 1 EACH PO DAILY, (Reported) Vitamin B Complex 1 Cap Capsule, 1 CAP PO DAILY, (Reported) Patient Home Medication List Home Medication List Reviewed: Yes Past Doxylom-Cpsjwx-Stixqz Hx Patient Social History Marrital Status: Employed/Student: employed Former Smoker, Quit: Oct 15, 1977 Type Used: Cigarettes Recent Foreign Travel: No Contact w/other who traveled: No Recent Hopitalizations: No Immunizations Up To Date Date of Pneumonia Vaccine: Nov 04, 2017 Date of Influenza Vaccine: Jul 30, 2017 Seasonal Allergies Seasonal Allergies: No Surgeries Yes Abdominal, Bowel Surgery, Gallbladder Respiratory No Currently Using CPAP: No Cardiovascular Yes Coronary Artery Disease, High Cholesterol, Hypertension Reproductive System Hx Reproductive Disorders: No Sexually Transmitted Disease: No HIV/AIDS: No Gastrointestinal Yes Chronic Diarrhea Musculoskeletal No Endocrine History of Endocrine Disorders: No Endocrine Disorders: Diabetes, Non-Insulin dep HEENT Loss of Vision: Bilateral Hearing Impairment: Denies Cancer Yes Colon Type of Treatment: Chemotherapy, Surgical Intervention Blood Transfusions Adverse Reaction to a Blood Tr: No (N/A) Family Medical History Significant Family History: No Pertinent Family Hx, Diabetes, Hypertension Review of Systems Constitutional: no symptoms reported EENTM: no symptoms reported Respiratory: no symptoms reported Cardiovascular: no symptoms reported Gastrointestinal: see HPI Genitourinary: no symptoms reported Musculoskeletal: no symptoms reported Skin: no symptoms reported Psychiatric/Neurological: No Symptoms Reported Physical Exam Vital Signs Capillary Refill : Height, Weight, BMI Height: 5'5.00" Weight: 169lbs. 0.0oz. 76.080011rx; 28.1 BMI Method:Stated General Appearance: No Apparent Distress Respiratory: Lungs Clear Cardiovascular: Regular Rate, Rhythm Gastrointestinal: Non Tender, Soft Rectal: Deferred Extremity: Normal Inspection Neurologic/Psychiatric: Alert, Oriented x3 Skin: Warm/Dry Assessment/Plan Assessment and Plan gentleman with a personal history of sigmoid carcinoma. For surveillance colonoscopy. Admission Diagnosis Admission Status: Other (Outpt Proc) SWETA COTTO MD Jul 01, 2018 10:41
[2018-07-01] MEDS ORDERED: MIDAZOLAM 2 MG/2 ML (VERSED) VIAL ONE ×3 (11:13→11:14)
[2018-07-01] MEDS ORDERED: fentaNYL INJECTION 100 MCG/2 ML AMP ONE ×2 (11:13)
--- NOTE | 2018-07-01 11:52 | Endo Procedure Record ---
Endo Procedure Report Date of Procedure Last Colonoscopy: Yes (06/2016) Jul 01, 2018 Surgeon (s) SWETA PAULINO MD Post Procedure/Op Diagnosis 3 mm sessile polyp at the cecum Procedure Performed colonoscopy to cecum Snare polypectomy Description of Procedure Anesthesia Type: Conscious Sedation Specimen(s) collected/removed cecal polyp Description of the Procedure Indication for the procedure: This gentleman had undergone sigmoid resection for carcinoma in 2008. He came in for surveillance colonoscopy. Informed consent was obtained after reviewing the procedure in detail. Description of procedure: He was placed in left lateral position and his vital signs were monitored. Conscious sedation was achieved using Versed and fentanyl. Digital rectal examination was unremarkable. The colonoscope was then introduced in the rectum and advanced all the way up to cecum. The quality of bowel preparation was excellent. The scope was then withdrawn slowly and the mucosa examined in a systematic fashion. Findin mm, sessile polyp at the cecum, there was snared and retrieved. He tolerated the procedure well and was taken back to the nursing area in a stable condition. Impression previous sigmoid carcinoma. 3 mm cecal polyp excised. Recommend repeating in 2 years. Copy Copies To 1: DEENA FERNÁNDEZ MD,SWETA Tan MD Jul 01, 2018 11:52
--- NOTE | 2018-07-01 11:56 | Discharge Inst-Simple/Standard ---
Discharge Inst-Standard Discharge Medications New, Converted or Re-Newed RX: Other Patient Instructions/Follow Up Plan of Care/Instructions/FU: repeat colonoscopy in 2 years Activity as Tolerated: Yes Discharge Diet: ADA Diet SWETA PAULINO MD Jul 01, 2018 11:55
[2018-07-01 12:15] VITALS: BP 126/68
[2018-07-01 12:45] VITALS: BP 133/67
[2018-07-01 12:52] VITALS: BP 133/67
== END 2018-07-01 12:52 | disposition home or self-care (01) ==
LOC: ENDO 09:31
PROVIDERS: ATTEND Surgery
DX: Z12.11 Encounter for screening for malignant neoplasm of colon (principal); D12.0 Benign neoplasm of cecum; Z85.038 Personal history of other malignant neoplasm of large intestine; I25.10 Atherosclerotic heart disease of native coronary artery without angina pectoris; E78.00 Pure hypercholesterolemia, unspecified; I10 Essential (primary) hypertension; E11.9 Type 2 diabetes mellitus without complications; Z87.891 Personal history of nicotine dependence; Z92.21 Personal history of antineoplastic chemotherapy; Z79.84 Long term (current) use of oral hypoglycemic drugs; Z79.899 Other long term (current) drug therapy; Z90.49 Acquired absence of other specified parts of digestive tract

== ENCOUNTER 2018-09-11 08:57 | Outpatient (RCR) | payer MEDICARE, OTHER ==
[2018-09-02 10:32] LABS: BASOPHILS % (AUTO) 0 % (0-10); EOSINOPHILS # (AUTO) 0.1 10^3/uL (0.0-0.3); EOSINOPHILS % (AUTO) 2 % (0-10); HEMATOCRIT 38 % (40-54); LYMPHOCYTES # (AUTO) 1.5 X 10^3 (1.0-4.0); LYMPHOCYTES % (AUTO) 28 % (12-44); MEAN CORPUSCULAR HEMOGLOBIN 30 PG (25-34); MEAN CORPUSCULAR HGB CONC 34 G/DL (32-36); MEAN CORPUSCULAR VOLUME 86 FL (80-99); MEAN PLATELET VOLUME 10.8 FL (7.4-10.4); MONOCYTES # (AUTO) 0.5 X 10^3 (0.0-1.0); MONOCYTES % (AUTO) 9 % (0-12); NEUTROPHILS # (AUTO) 3.3 X 10^3 (1.8-7.8); NEUTROPHILS % (AUTO) 61 % (42-75); PLATELET COUNT 138 10^3/uL (130-400); RED CELL DISTRIBUTION WIDTH 13.2 % (10.0-14.5); WHITE BLOOD COUNT 5.4 10^3/uL (4.3-11.0)
[2018-09-02 10:46] LABS: BUN/CREATININE RATIO 14; CARBON DIOXIDE 26 MMOL/L (21-32); CHLORIDE 105 MMOL/L (98-107); CREATININE SERUM 1.18 MG/DL (0.60-1.30); GFR ESTIMATED > 60; GLUCOSE 109 MG/DL (70-105); POTASSIUM 4.4 MMOL/L (3.6-5.0); SODIUM 139 MMOL/L (135-145)
[2018-09-02 10:47] LABS: ALANINE AMINOTRANSFERASE 22 U/L (0-55); ALBUMIN 4.2 GM/DL (3.2-4.5); ALKALINE PHOSPHATASE 56 U/L (40-136); TOTAL PROTEIN 6.6 GM/DL (6.4-8.2)
== END 2018-12-01 | disposition home or self-care (01) ==
LOC: ONC 08:57
PROVIDERS: ATTEND Internal Medicine Hematology & Oncology
DX: Z08 Encounter for follow-up examination after completed treatment for malignant neoplasm (principal); Z85.038 Personal history of other malignant neoplasm of large intestine
CPT/HCPCS: 36415; 80053; 82378; 85025; 99213

== ENCOUNTER 2019-05-29 05:40 | Outpatient (CLI) | payer MEDICARE, OTHER ==
[~2019-05-29] VITALS: Ht 165.1 cm; Wt 76.7 kg
[2019-05-29] MEDS ORDERED: OMEG-160 PO (15:27)
[2019-05-29] MEDS ORDERED: LISI40TA PO (15:27)
[2019-05-29] MEDS ORDERED: GLIP5TAB13 PO (15:27)
[2019-05-29] MEDS ORDERED: MULT1CAP27 PO (15:27)
[2019-05-29] MEDS ORDERED: AMLO10TA7 PO (15:27)
[2019-05-29] MEDS ORDERED: ATOR40TA70 PO (15:27)
[2019-05-29] MEDS ORDERED: ASPI-999 PO (15:27)
[2019-05-29] MEDS ORDERED: VITA1CAP PO (15:27)
== END 2019-05-29 15:30 | disposition home or self-care (01) ==
LOC: PREOP 05:40
PROVIDERS: ATTEND Surgery
DX: Z01.818 Encounter for other preprocedural examination (principal)

== ENCOUNTER 2019-06-03 08:47 | Day surgery (SDC) | payer MEDICARE, OTHER ==
[2019-06-03] VITALS (10 sets, daily range): BP systolic 113–131; BP diastolic 62–77
[~2019-06-03] VITALS: Ht 165.1 cm; Wt 76.7 kg
[~2019-06-03 08:47] MED LIST changes: +AMLO10TA7 PO; +ASPI-999 PO; +OMEG-160 PO; +VITA1CAP PO
[2019-06-03] MEDS ORDERED: LACTATED RINGERS 1,000 ML IV ONE (09:01)
[2019-06-03] MEDS ORDERED: LACTATED RINGERS 1,000 ML IV STA (09:03)
--- NOTE | 2019-06-03 09:36 | Progress Note-Pre Operative ---
Pre-Operative Progress Note H&P Reviewed The H&P was reviewed, patient examined and no changes noted. Date Seen by Provider: Jun 03, 2019 Time Seen by Provider: 09:36 Date H&P Reviewed: Jun 03, 2019 Time H&P Reviewed: 09:36 Pre-Operative Diagnosis: hx colon cancer JAVY JONES DO Jun 03, 2019 09:36
[2019-06-03] MEDS ORDERED: PROPOFOL INJECTION 50 ML IV ONE (09:58)
--- NOTE | 2019-06-03 10:33 | Progress Note-Post Operative ---
Post-Operative Progess Note Surgeon (s)/Rice Cleaning Machine Tender (s) Surgeon JAVY JONES DO Rice Cleaning Machine Tender: na Pre-Operative Diagnosis hx colon cancer Post-Operative Diagnosis colon polyps Procedure & Operative Findings Date of Procedure 06/03/19 Procedure Performed/Findings colonoscopy c hot bx polypectomy x 3 Anesthesia Type per health assistant Estimated Blood Loss Estimated blood loss (mL): none Specimens/Packing Specimens Removed colon polyps JAVY JONES DO Jun 03, 2019 10:33
--- NOTE | 2019-06-03 10:34 | Discharge Inst-Simple/Standard ---
Discharge Inst-Standard Patient Instructions/Follow Up Plan of Care/Instructions/FU: 2 weeks Jacque Activity as Tolerated: Yes Discharge Diet: Regular Diet (high fiber) JAVY JONES DO Jun 03, 2019 10:34
--- NOTE | 2019-06-03 12:52 | OPERATIVE REPORT ---
DATE OF SERVICE: 06/03/2019 PREOPERATIVE DIAGNOSIS: History of colon cancer. POSTOPERATIVE DIAGNOSIS: Colon polyps. PROCEDURE: Colonoscopy with hot biopsy polypectomy x3. SURGEON: Javy Santillan DO ANESTHESIA: Per ETHANOL OPERATOR. ESTIMATED BLOOD LOSS: None. COMPLICATIONS: None. INDICATIONS: The patient is a 68-year-old male due for screening colonoscopy. He understands risks and benefits of procedure and wished to proceed with procedure. Consent was signed in chart. DESCRIPTION OF PROCEDURE: The patient was taken to the endoscopy suite, placed in left lateral recumbent position. Timeout was performed. Digital rectal exam was performed. There were no palpable polyps, masses or ulcerations. Scope was inserted in the rectum, advanced all the way to cecum with minimal difficulty. There were no polyps, mass or ulcerations within the cecum. Scope was then slowly retracted back. There were no polyps, mass or ulceration of the ascending colon. At the hepatic flexure, a small polyp was present, which hot biopsy polypectomy was performed. Scope was continued to be slowly retracted back. No other polyps, masses or ulcerations present until the descending colon. A small polyp was present, which hot biopsy polypectomy was performed. Scope was continued to be slowly retracted back into the rectum where another small polyp was present, which hot biopsy polypectomy was performed. Scope was retroflexed noting no other pathology. Scope was returned to its normal position, slowly withdrawn until completely removed. The patient tolerated procedure well without any complications, taken to recovery room in stable condition. RECOMMENDATIONS: The patient will need repeat colonoscopy in 5 years. Any issues before that will be seen at that time. Job ID: [id number] DocumentID: [id number] Dictated Date: 06/03/2019 10:37:40 Obgyn Hospitalist Physician Date: 06/03/2019 12:52:10 Dictated By: JAVY SANTILLAN DO
--- NOTE | 2019-06-03 15:02 | Anesthesia-General Post-Op ---
MAC Patient Condition Mental Status/LOC: Same as Preop Cardiovascular: Satisfactory Nausea/Vomiting: Absent Respiratory: Satisfactory Pain: Controlled Complications: Absent Post Op Complications Complications None Follow Up Care/Instructions Patient Instructions None needed. Anesthesiology Discharge Order Discharge Order Patient was seen this morning after the procedure and he was doing well, no complaints, stable vital signs, no apparent adverse anesthesia problems. ADRIEN ORTIZ DO Jun 03, 2019 15:02
== END 2019-06-03 11:30 | disposition home or self-care (01) ==
LOC: ENDO 08:47
PROVIDERS: ATTEND Surgery
DX: Z12.11 Encounter for screening for malignant neoplasm of colon (principal); D12.3 Benign neoplasm of transverse colon; D12.4 Benign neoplasm of descending colon; D12.8 Benign neoplasm of rectum; E11.9 Type 2 diabetes mellitus without complications; I10 Essential (primary) hypertension; E78.00 Pure hypercholesterolemia, unspecified; I25.10 Atherosclerotic heart disease of native coronary artery without angina pectoris; I77.89 Other specified disorders of arteries and arterioles; E78.5 Hyperlipidemia, unspecified; G47.33 Obstructive sleep apnea (adult) (pediatric); Z85.038 Personal history of other malignant neoplasm of large intestine; Z80.0 Family history of malignant neoplasm of digestive organs; Z79.82 Long term (current) use of aspirin; Z79.84 Long term (current) use of oral hypoglycemic drugs; Z79.899 Other long term (current) drug therapy; Z87.891 Personal history of nicotine dependence; Z87.442 Personal history of urinary calculi
CPT/HCPCS: 82962

== ENCOUNTER 2019-09-10 08:43 | Outpatient (RCR) | payer MEDICARE, OTHER ==
[2019-09-01 09:38] LABS: BASOPHILS % (AUTO) 0 % (0-10); EOSINOPHILS # (AUTO) 0.2 10^3/uL (0.0-0.3); EOSINOPHILS % (AUTO) 3 % (0-10); HEMATOCRIT 37 % (40-54); HEMOGLOBIN 12.7 G/DL (13.3-17.7); LYMPHOCYTES # (AUTO) 1.6 X 10^3 (1.0-4.0); LYMPHOCYTES % (AUTO) 32 % (12-44); MEAN CORPUSCULAR HEMOGLOBIN 30 PG (25-34); MEAN CORPUSCULAR HGB CONC 34 G/DL (32-36); MEAN CORPUSCULAR VOLUME 87 FL (80-99); MEAN PLATELET VOLUME 10.7 FL (7.4-10.4); MONOCYTES # (AUTO) 0.5 X 10^3 (0.0-1.0); MONOCYTES % (AUTO) 10 % (0-12); NEUTROPHILS # (AUTO) 2.7 X 10^3 (1.8-7.8); NEUTROPHILS % (AUTO) 55 % (42-75); PLATELET COUNT 135 10^3/uL (130-400); RED CELL DISTRIBUTION WIDTH 13.4 % (10.0-14.5); WHITE BLOOD COUNT 4.9 10^3/uL (4.3-11.0)
[2019-09-01 10:00] LABS: ALANINE AMINOTRANSFERASE 26 U/L (0-55); ALBUMIN 4.2 GM/DL (3.2-4.5); ALKALINE PHOSPHATASE 53 U/L (40-136); BILIRUBIN,TOTAL 0.9 MG/DL (0.1-1.0); BUN/CREATININE RATIO 12; CALCIUM 9.3 MG/DL (8.5-10.1); CARBON DIOXIDE 23 MMOL/L (21-32); CHLORIDE 108 MMOL/L (98-107); CREATININE SERUM 1.09 MG/DL (0.60-1.30); GFR ESTIMATED > 60; GLUCOSE 113 MG/DL (70-105); POTASSIUM 4.4 MMOL/L (3.6-5.0); SODIUM 141 MMOL/L (135-145); TOTAL PROTEIN 6.7 GM/DL (6.4-8.2)
[~2019-09-10 08:43] MED LIST changes: -METO-395 PO; +MTP100TCR PO
== END 2019-11-30 | disposition home or self-care (01) ==
LOC: ONC 08:43
PROVIDERS: ATTEND Internal Medicine Hematology & Oncology
DX: C18.7 Malignant neoplasm of sigmoid colon (principal); R06.02 Shortness of breath
CPT/HCPCS: 36415; 80053; 82378; 85025; 99213

== ENCOUNTER → 2020-03-30 | Outpatient (CLI) | payer MEDICARE, OTHER ==
[~2020-03-30] VITALS: Ht 167 cm; Wt 79.0 kg
[~2020-03-30] MED LIST changes: +CATHETER FLUSH 10 ML SYR IV PRN; +REGADENOSON 0.4 MG/5 ML SYR (LEXISCAN) IV ONE
--- NOTE | 2020-03-30 17:32 | STRESS TEST ---
DATE OF SERVICE: 03/30/2020 RESTING AND POST REGADENOSON TECHNETIUM-99M TETROFOSMIN SPECT CT IMAGING ORDERING PHYSICIAN: Mita Laws APRN PRIMARY PHYSICIAN: Dr. Kaur. CLINICAL DIAGNOSIS: Coronary artery disease. Baseline images were carried out after injection of 10.16 mCi of technetium-99m Tetrofosmin. This was followed by 0.4 mg regadenoson and 31.5 mCi of technetium-99m Tetrofosmin for stress imaging. The electrocardiogram showed sinus rhythm at baseline. An old septal myocardial infarction cannot be excluded on the electrocardiogram. The electrocardiogram did not change significantly with regadenoson infusion. Review of images at rest and following stress does not indicate any significant perfusion defects consistent with significant myocardial ischemia or infarction. Some apical thinning is seen both at rest and following regadenoson infusion. Gated images show normal global left ventricular systolic function with normal regional wall motion, including the left ventricular apex. Left ventricular ejection fraction is calculated to be 71%. Left ventricular end diastolic volume is 81 mL. TID is absent (0.97). CONCLUSIONS: 1. No evidence of any significant myocardial ischemia or infarction is seen. 2. Normal regional wall motion. 3. Normal global left ventricular systolic function with a calculated ejection fraction of 71%. Job ID: [id number] DocumentID: [id number] Dictated Date: 03/30/2020 16:19:52 Director Of Vital Statistics Date: 03/30/2020 17:32:24 Dictated By: DONTA HICKS MD, MA, FACP, FACC,
== END ==
LOC: CARD 10:27
PROVIDERS: ATTEND Nurse Practitioner Family
DX: I25.10 Atherosclerotic heart disease of native coronary artery without angina pectoris (principal); I77.89 Other specified disorders of arteries and arterioles; I10 Essential (primary) hypertension; G47.33 Obstructive sleep apnea (adult) (pediatric); E78.5 Hyperlipidemia, unspecified
CPT/HCPCS: 78452; 93017; A9502

== ENCOUNTER → 2020-04-01 | Outpatient (CLI) | payer MEDICARE, OTHER ==
[~2020-04-01] MED LIST changes: -CATHETER FLUSH 10 ML SYR IV PRN; -REGADENOSON 0.4 MG/5 ML SYR (LEXISCAN) IV ONE
== END ==
LOC: CARD 12:32
PROVIDERS: ATTEND Nurse Practitioner Family
DX: I34.0 Nonrheumatic mitral (valve) insufficiency (principal); I11.9 Hypertensive heart disease without heart failure; I25.10 Atherosclerotic heart disease of native coronary artery without angina pectoris; I65.23 Occlusion and stenosis of bilateral carotid arteries; G47.33 Obstructive sleep apnea (adult) (pediatric); E78.5 Hyperlipidemia, unspecified
CPT/HCPCS: 93306

== ENCOUNTER 2020-06-29 05:43 | Outpatient (CLI) | payer MEDICARE, OTHER ==
[~2020-06-29] VITALS: Ht 170.2 cm; Wt 78.6 kg
== END 2020-06-29 12:52 | disposition home or self-care (01) ==
LOC: PREOP 05:43
PROVIDERS: ATTEND Surgery
DX: Z01.818 Encounter for other preprocedural examination (principal)

== ENCOUNTER 2020-07-06 12:24 | Day surgery (SDC) | payer MEDICARE, OTHER ==
[~2020-07-06] VITALS: Ht 170.2 cm; Wt 78.6 kg
[2020-07-06] MEDS ORDERED: LACTATED RINGERS 1,000 ML IV STA (12:26)
[2020-07-06] MEDS ORDERED: LACTATED RINGERS 1,000 ML IV ONE (12:26)
[2020-07-06] MEDS ORDERED: PROPOFOL INJECTION 50 ML IV ONE (12:32)
[2020-07-06] MEDS ORDERED: MIDAZOLAM 2 MG/2 ML (VERSED) VIAL ONE (12:32)
[2020-07-06 12:37] VITALS: BP 152/80
--- NOTE | 2020-07-06 13:19 | Progress Note-Pre Operative ---
Pre-Operative Progress Note H&P Reviewed The H&P was reviewed, patient examined and no changes noted. Date Seen by Provider: Jul 06, 2020 Time Seen by Provider: 13:19 Date H&P Reviewed: Jul 06, 2020 Time H&P Reviewed: 13:19 Pre-Operative Diagnosis: history colon ca JAVY JONES DO Jul 06, 2020 13:19
[2020-07-06 13:45] VITALS: BP 151/76
--- NOTE | 2020-07-06 13:46 | Progress Note-Post Operative ---
Post-Operative Progess Note Surgeon (s)/Account Director (s) Surgeon JAVY JONES DO Account Director: na Pre-Operative Diagnosis history colon ca Post-Operative Diagnosis normal colon Procedure & Operative Findings Date of Procedure 07/06/20 Procedure Performed/Findings colonoscopy Anesthesia Type per DENTAL TECHNICIAN Estimated Blood Loss Estimated blood loss (mL): none Specimens/Packing Specimens Removed none JAVY JONES DO Jul 06, 2020 13:46
--- NOTE | 2020-07-06 13:47 | Discharge Inst-Simple/Standard ---
Discharge Inst-Standard Patient Instructions/Follow Up Plan of Care/Instructions/FU: 5 years Jacque any issues before that be seen at that time. Activity as Tolerated: Yes Discharge Diet: Regular Diet JAVY JONES DO Jul 06, 2020 13:47
[2020-07-06 13:50] VITALS: BP_SYST 146; BP_SYST 162; BP_DIAS 70; BP_DIAS 79
[2020-07-06 14:15] VITALS: BP 150/68
[2020-07-06 14:20] VITALS: BP 150/68
--- NOTE | 2020-07-06 14:38 | Anesthesia-General Post-Op ---
MAC Patient Condition Mental Status/LOC: Same as Preop Cardiovascular: Satisfactory Nausea/Vomiting: Absent Respiratory: Satisfactory Pain: Controlled Complications: Absent Post Op Complications Complications None Follow Up Care/Instructions Patient Instructions None needed. Anesthesiology Discharge Order Discharge Order Patient is doing well, no complaints, stable vital signs, no apparent adverse anesthesia problems. No complications reported per nursing. MISAEL CASTLE CRNA Jul 06, 2020 14:38
--- NOTE | 2020-07-07 00:38 | OPERATIVE REPORT ---
DATE OF SERVICE: 07/06/2020 PREOPERATIVE DIAGNOSIS: History of colon cancer. POSTOPERATIVE DIAGNOSIS: Normal colon. PROCEDURE PERFORMED: Colonoscopy. ANESTHESIA: Per WIRE WHEELER. SURGEON: Javy Santillan DO. ESTIMATED BLOOD LOSS: None. COMPLICATIONS: None. INDICATIONS: The patient is a 69-year-old male has been requested that a screening colonoscopy be performed due to history of colon cancer. The patient understands risks and benefits and wishes to proceed. Consent was signed in the chart. DESCRIPTION OF PROCEDURE: The patient was taken to the endoscopy suite, placed in left lateral recumbent position. Timeout was performed. Digital rectal exam was performed. No palpable polyps, masses or ulcerations. Scope was inserted in the rectum and advanced all the way to cecum with minimal difficulty. Prep was adequate. Scope was then slowly retracted back. The terminal ileum was intubated, no pathology noted. Scope was returned back to the colon. There were no polyps, masses or ulcerations within the cecum, ascending, transverse, descending and sigmoid colon. The anastomosis was visualized. No evidence of any recurrence. Scope was then continuously retracted back into the rectum where it was also retroflexed noting no other pathology. Scope was returned to its normal position, slowly withdrawn until completely removed. The patient tolerated the procedure well without any complications. He was taken to the recovery room in stable condition. RECOMMENDATIONS: The patient will need a repeat colonoscopy in 5 years. Any issues before that be seen at that time. Job ID: [id number] DocumentID: [id number] Dictated Date: 07/06/2020 13:52:40 Television Specialist Date: 07/06/2020 16:33:00 Dictated By: JAVY SANTILLAN DO
== END 2020-07-06 14:26 | disposition home or self-care (01) ==
LOC: ENDO 12:24
PROVIDERS: ATTEND Surgery
DX: Z12.11 Encounter for screening for malignant neoplasm of colon (principal); I10 Essential (primary) hypertension; I25.10 Atherosclerotic heart disease of native coronary artery without angina pectoris; G47.33 Obstructive sleep apnea (adult) (pediatric); E11.9 Type 2 diabetes mellitus without complications; E78.00 Pure hypercholesterolemia, unspecified; Z79.82 Long term (current) use of aspirin; Z79.84 Long term (current) use of oral hypoglycemic drugs; Z79.899 Other long term (current) drug therapy; Z87.891 Personal history of nicotine dependence; Z86.010 Personal history of colon polyps; Z85.038 Personal history of other malignant neoplasm of large intestine

== ENCOUNTER 2020-08-24 14:47 | Outpatient (RCR) | payer MEDICARE, OTHER ==
[2020-08-17 08:44] LABS: BASOPHILS % (AUTO) 0 % (0-10); EOSINOPHILS # (AUTO) 0.2 10^3/uL (0.0-0.3); EOSINOPHILS % (AUTO) 3 % (0-10); HEMATOCRIT 39 % (40-54); HEMOGLOBIN 13.3 g/dL (13.3-17.7); LYMPHOCYTES # (AUTO) 1.7 10^3/uL (1.0-4.0); LYMPHOCYTES % (AUTO) 29 % (12-44); MEAN CORPUSCULAR HEMOGLOBIN 30 pg (25-34); MEAN CORPUSCULAR HGB CONC 34 g/dL (32-36); MEAN CORPUSCULAR VOLUME 89 fL (80-99); MEAN PLATELET VOLUME 10.5 fL (9.0-12.2); MONOCYTES # (AUTO) 0.5 10^3/uL (0.0-1.0); MONOCYTES % (AUTO) 8 % (0-12); NEUTROPHILS # (AUTO) 3.4 10^3/uL (1.8-7.8); NEUTROPHILS % (AUTO) 59 % (42-75); PLATELET COUNT 144 10^3/uL (130-400); WHITE BLOOD COUNT 5.8 10^3/uL (4.3-11.0)
[2020-08-17 09:00] LABS: ALBUMIN 4.3 GM/DL (3.2-4.5); BILIRUBIN,TOTAL 1.3 MG/DL (0.1-1.0); CALCIUM 9.1 MG/DL (8.5-10.1); CREATININE SERUM 1.19 MG/DL (0.60-1.30); POTASSIUM 4.3 MMOL/L (3.6-5.0); TOTAL PROTEIN 7.2 GM/DL (6.4-8.2)
[~2020-08-24 14:47] MED LIST changes: +AMLO-251 PO; -AMLO10TA7 PO
== END 2020-11-15 | disposition home or self-care (01) ==
LOC: ONC 14:47
PROVIDERS: ATTEND Internal Medicine Hematology & Oncology
DX: Z09 Encounter for follow-up examination after completed treatment for conditions other than malignant neoplasm (principal); Z85.038 Personal history of other malignant neoplasm of large intestine; I25.10 Atherosclerotic heart disease of native coronary artery without angina pectoris; I77.89 Other specified disorders of arteries and arterioles; E11.9 Type 2 diabetes mellitus without complications; E78.00 Pure hypercholesterolemia, unspecified; I10 Essential (primary) hypertension; G47.30 Sleep apnea, unspecified; Z79.899 Other long term (current) drug therapy; Z92.21 Personal history of antineoplastic chemotherapy
CPT/HCPCS: 80053; 82378; 85025; 99213

== ENCOUNTER 2021-08-23 10:13 | Outpatient (RCR) | payer MEDICARE, OTHER ==
[2021-08-18 11:11] LABS: BASOPHILS % (AUTO) 0 % (0-10); EOSINOPHILS # (AUTO) 0.2 10^3/uL (0.0-0.3); EOSINOPHILS % (AUTO) 3 % (0-10); HEMATOCRIT 35 % (40-54); HEMOGLOBIN 11.9 g/dL (13.3-17.7); LYMPHOCYTES % (AUTO) 32 % (12-44); MEAN CORPUSCULAR HEMOGLOBIN 30 pg (25-34); MEAN CORPUSCULAR HGB CONC 35 g/dL (32-36); MEAN CORPUSCULAR VOLUME 87 fL (80-99); MONOCYTES # (AUTO) 0.5 10^3/uL (0.0-1.0); MONOCYTES % (AUTO) 8 % (0-12); NEUTROPHILS # (AUTO) 3.4 10^3/uL (1.8-7.8); NEUTROPHILS % (AUTO) 56 % (42-75); PLATELET COUNT 139 10^3/uL (130-400)
[2021-08-18 11:30] LABS: ALBUMIN 3.9 GM/DL (3.2-4.5); BILIRUBIN,TOTAL 0.8 MG/DL (0.1-1.0); CALCIUM 9.1 MG/DL (8.5-10.1); CREATININE SERUM 1.07 MG/DL (0.60-1.30); POTASSIUM 4.3 MMOL/L (3.6-5.0); TOTAL PROTEIN 6.6 GM/DL (6.4-8.2)
[~2021-08-23 10:13] MED LIST changes: +LISI40TA9 PO
== END 2021-10-14 | disposition home or self-care (01) ==
LOC: ONC 10:13
PROVIDERS: ATTEND Internal Medicine Hematology & Oncology
DX: Z09 Encounter for follow-up examination after completed treatment for conditions other than malignant neoplasm (principal); Z85.038 Personal history of other malignant neoplasm of large intestine; I65.29 Occlusion and stenosis of unspecified carotid artery; I10 Essential (primary) hypertension; I25.10 Atherosclerotic heart disease of native coronary artery without angina pectoris; E11.9 Type 2 diabetes mellitus without complications; E78.00 Pure hypercholesterolemia, unspecified; G47.30 Sleep apnea, unspecified; Z79.899 Other long term (current) drug therapy; Z92.21 Personal history of antineoplastic chemotherapy
CPT/HCPCS: 80053; 82378; 85025; 99213

== ENCOUNTER 2021-11-01 05:36 | Outpatient (CLI) | payer MEDICARE, OTHER ==
[~2021-11-01] VITALS: Ht 160.3 cm; Wt 85.0 kg
[2021-11-01] MEDS ORDERED: MULT-1136 PO (11:22)
[2021-11-01] MEDS ORDERED: PEDI18TA2 PO (11:22)
== END 2021-11-01 11:44 | disposition home or self-care (01) ==
LOC: PREOP 05:36
PROVIDERS: ATTEND Specialist
DX: Z01.818 Encounter for other preprocedural examination (principal)

== ENCOUNTER 2021-11-04 08:31 | Day surgery (SDC) | payer MEDICARE, OTHER ==
[~2021-11-04] VITALS: Ht 160.3 cm; Wt 85.0 kg
[~2021-11-04 08:31] MED LIST changes: +MULT-1136 PO; +PEDI18TA2 PO
[2021-11-04] MEDS: TETRACAINE 0.5% OPHTH SOLN 4 ML BTL (SINGLE DOSE ONLY) OU PRN ×3 (09:02→09:18)
[2021-11-04] MEDS: TROPICAMIDE 1% OPH SOLN (MYDRIACYL) 15 ML BTL OU PRN ×3 (09:02→09:18)
[2021-11-04] MEDS: PHENYLEPHRINE 10% OPHTH (NEO-SYN) 5 ML BTL OU PRN ×3 (09:02→09:18)
[2021-11-04 09:10] VITALS: BP 171/75
--- NOTE | 2021-11-04 09:26 | Ophthalmologist Pre-Op Note ---
Pre-Operative Progress Note H&P Reviewed The H&P was reviewed, patient examined and no changes noted. Date H&P Reviewed: Nov 04, 2021 Time H&P Reviewed: 09:26 Pre-Op Dx Secondary Cataract, Right Eye KATY HENRY MD Nov 04, 2021 09:26
[2021-11-04 10:00] VITALS: BP 171/75
--- NOTE | 2021-11-04 10:17 | Ophthalmology Operative Report ---
YAG Capsulotomy PREOPERATIVE DIAGNOSIS: Secondary Cataract Right Eye POSTOPERATIVE DIAGNOSIS: Secondary Cataract Right Eye PROCEDURE: YAG Capsulotomy, right eye SURGEON: Michael Henry ANESTHESIA: Topical anesthesia COMPLICATIONS: None ESTIMATED BLOOD LOSS: Minimal DESCRIPTION OF PROCEDURE: After proper informed consent was obtained, the patient's, a 71 male, right eye received one drop of Tropicamide and one drop of Tetracaine. The patient was then placed at the YAG laser and using a power of [ 4.5] millijoules and [21 ] bursts were used to fashion a central capsulotomy. The patient tolerated the procedure well without complications. MICHAEL HENRY MD Nov 04, 2021 10:17
== END 2021-11-04 10:00 | disposition home or self-care (01) ==
LOC: SDC 08:31
PROVIDERS: ATTEND Specialist
DX: E11.36 Type 2 diabetes mellitus with diabetic cataract (principal); H26.491 Other secondary cataract, right eye; E78.00 Pure hypercholesterolemia, unspecified; Z87.891 Personal history of nicotine dependence; Z98.890 Other specified postprocedural states; Z85.828 Personal history of other malignant neoplasm of skin; Z85.038 Personal history of other malignant neoplasm of large intestine

== ENCOUNTER 2023-05-16 07:26 | Outpatient (CLI) | payer MEDICARE, OTHER ==
[~2023-05-16] VITALS: Ht 167.7 cm; Wt 75.0 kg
[~2023-05-16 07:26] MED LIST changes: +OMEP20TA56 PO; -OMEP20TA7 PO
== END 2023-05-17 09:49 | disposition home or self-care (01) ==
LOC: PREOP 07:26
PROVIDERS: ATTEND Specialist
DX: Z01.818 Encounter for other preprocedural examination (principal)

== ENCOUNTER 2023-05-18 09:36 | Day surgery (SDC) | payer MEDICARE, OTHER ==
[~2023-05-18] VITALS: Ht 167.7 cm; Wt 75.0 kg
[2023-05-18] MEDS: TETRACAINE 0.5% OPHTH SOLN 4 ML BTL (SINGLE DOSE ONLY) OU PRN ×2 (10:10→10:12)
[2023-05-18 10:14] VITALS: BP 150/87
[2023-05-18] MEDS ORDERED: PHENYLEPHRINE 10% OPHTH (NEO-SYN) 5 ML BTL OU PRN (10:15)
[2023-05-18] MEDS ORDERED: TROPICAMIDE 1% OPH SOLN (MYDRIACYL) 15 ML BTL OU PRN (10:15)
--- NOTE | 2023-05-18 11:06 | Ophthalmology Operative Report ---
YAG Capsulotomy PREOPERATIVE DIAGNOSIS: Secondary Cataract Left Eye POSTOPERATIVE DIAGNOSIS: Secondary Cataract Left Eye PROCEDURE: YAG Capsulotomy, left eye SURGEON: Michael Henry ANESTHESIA: Topical anesthesia COMPLICATIONS: None ESTIMATED BLOOD LOSS: Minimal DESCRIPTION OF PROCEDURE: After proper informed consent was obtained, the patient's, a 72 male left eye received one drop of Tropicamide and one drop of Tetracaine. The patient was then placed at the YAG laser and using a power of [4.9 ] millijoules and [ 21] bursts were used to fashion a central capsulotomy. The patient tolerated the procedure well without complications. MICHAEL HENRY MD May 18, 2023 11:06
--- NOTE | 2023-05-18 11:07 | Ophthalmologist Pre-Op Note ---
Pre-Operative Progress Note H&P Reviewed The H&P was reviewed, patient examined and no changes noted. Date H&P Reviewed: May 18, 2023 Time H&P Reviewed: 10:44 Pre-Op Dx Secondary Cataract, Right Eye KATY HENRY MD May 18, 2023 11:07
== END 2023-05-18 10:45 | disposition home or self-care (01) ==
LOC: SDC 09:36
PROVIDERS: ATTEND Specialist
DX: E11.36 Type 2 diabetes mellitus with diabetic cataract (principal); H26.40 Unspecified secondary cataract; Z87.891 Personal history of nicotine dependence; Z79.84 Long term (current) use of oral hypoglycemic drugs

== ENCOUNTER 2023-06-13 05:46 | Outpatient (CLI) | payer MEDICARE, OTHER ==
[~2023-06-13] VITALS: Ht 167.7 cm; Wt 79.1 kg
[2023-06-14] MEDS ORDERED: PEDI1TAB46 PO (14:46)
== END 2023-06-14 14:49 | disposition home or self-care (01) ==
LOC: PREOP 05:46
PROVIDERS: ATTEND Surgery
DX: Z01.818 Encounter for other preprocedural examination (principal)

== ENCOUNTER 2023-06-26 08:42 | Day surgery (SDC) | payer MEDICARE, OTHER ==
[~2023-06-26] VITALS: Ht 167.7 cm; Wt 79.1 kg
[~2023-06-26 08:42] MED LIST changes: +PEDI1TAB46 PO
[2023-06-26] MEDS ORDERED: LACTATED RINGERS 1,000 ML 1,000 ML IV STA (08:44)
[2023-06-26 08:55] VITALS: BP 167/87
--- NOTE | 2023-06-26 09:33 | Progress Note-Pre Operative ---
Pre-Operative Progress Note Date H&P Reviewed: Jun 26, 2023 Time H&P Reviewed: 09:33 History & Physical: H&P Reviewed, Patient Examed, No changes noted Pre-Operative Diagnosis: hx of colon cancer JAVY JONES DO Jun 26, 2023 09:33
[2023-06-26] MEDS ORDERED: MIDAZOLAM INJ 2 MG/2 ML VIAL ONE (09:36)
[2023-06-26 10:00] VITALS: BP 117/58
--- NOTE | 2023-06-26 10:00 | Progress Note-Post Operative ---
Post-Operative Progess Note Surgeon (s)/Senior C Web Developer (s) Surgeon JAVY JONES DO Senior C Web Developer: NA Pre-Operative Diagnosis hx of colon cancer Post-Operative Diagnosis transverse and ascending colon polyps Procedure & Operative Findings Date of Procedure 06/26/23 Procedure Performed/Findings colonoscopy with hot biopsy polypectomy x2 Anesthesia Type per DENTAL CLAIMS PROCESSOR Estimated Blood Loss Estimated blood loss (mL): none Specimens/Packing Specimens Removed transverse and ascending colon JAVY JONES DO Jun 26, 2023 10:00
--- NOTE | 2023-06-26 10:01 | Discharge Inst-Simple/Standard ---
Discharge Inst-Standard Patient Instructions/Follow Up Plan of Care/Instructions/FU: 2 weeks eduardo Activity as Tolerated: Yes Discharge Diet: Regular Diet JAVY JONES DO Jun 26, 2023 10:01
[2023-06-26 10:05] VITALS: BP 121/58
[2023-06-26 10:10] VITALS: BP 138/66
[2023-06-26 10:15] VITALS: BP 167/87
[2023-06-26 10:45] VITALS: BP 167/87
--- NOTE | 2023-06-26 12:05 | Anesthesia-General Post-Op ---
MAC Patient Condition Mental Status/LOC: Same as Preop Cardiovascular: Satisfactory Nausea/Vomiting: Absent Respiratory: Satisfactory Pain: Controlled Complications: Absent Post Op Complications Complications None Follow Up Care/Instructions Patient Instructions None needed. Anesthesiology Discharge Order Discharge Order Patient is doing well, no complaints, stable vital signs, no apparent adverse anesthesia problems. No complications reported per nursing. GABRIELA GUTIERRES CRNA Jun 26, 2023 12:05
--- NOTE | 2023-06-26 18:38 | OPERATIVE REPORT ---
DATE OF SERVICE: 06/26/2023 PREOPERATIVE DIAGNOSIS: History of colon cancer. POSTOPERATIVE DIAGNOSIS: Colon polyps. PROCEDURE: Colonoscopy with hot biopsy polypectomy x2. SURGEON: Javy Satnillan DO ANESTHESIA: Per CRITICAL CARE CNS. ESTIMATED BLOOD LOSS: None. COMPLICATIONS: None. INDICATIONS: The patient is a 72-year-old male with history of colon cancer. He understands risks and benefits of procedure and wished to proceed. Consent was signed in chart. DESCRIPTION OF PROCEDURE: The patient was taken to endoscopy suite, placed in left lateral recumbent position. Timeout was performed. Digital rectal exam was performed. No palpable polyps, masses or ulcerations. Scope was inserted in the rectum, advanced all the way to the cecum with minimal difficulty. Prep was adequate. Scope was then slowly retracted back. No polyps, masses or ulcerations in the cecum. In the ascending colon, small polyp was present, which hot biopsy polypectomy was performed. Scope was then continuously retracted back. In the transverse colon, small polyp was present, which hot biopsy polypectomy was performed. Scope was then slowly retracted back, noting no polyps, masses or ulcerations in remainder of transverse, descending, sigmoid colon and rectum. The anastomosis had normal appearance. Scope was retroflexed in the rectum, noting no other pathology. Scope was returned to its normal position, slowly withdrawn until completely removed. The patient tolerated the procedure well without any complications, taken to recovery room in stable condition. RECOMMENDATIONS: The patient will need repeat colonoscopy in 5 years. Any issues before that, be seen at that time if benefits outweigh the risk. Job ID: [id number] DocumentID: [id number] Dictated Date: 06/26/2023 09:59:35 Software Firmware Engineer Date: 06/26/2023 18:36:00 Dictated By: JAVY SANTILLAN DO [facility] MED[facility] CENTERJim
== END 2023-06-26 10:45 | disposition home or self-care (01) ==
LOC: ENDO 08:42
PROVIDERS: ATTEND Surgery
DX: Z12.11 Encounter for screening for malignant neoplasm of colon (principal); D12.2 Benign neoplasm of ascending colon; K63.5 Polyp of colon; Z87.891 Personal history of nicotine dependence; Z85.038 Personal history of other malignant neoplasm of large intestine

== ENCOUNTER → 2023-07-31 | Outpatient (CLI) | payer MEDICARE, OTHER ==
[~2023-07-31] MED LIST changes: +REGADENOSON 0.4 MG/5 ML SYR IV ONE
[2023-07-31] MEDS: CATHETER FLUSH 10 ML SYR IVP PRN ×2 (08:16→08:26)
[2023-07-31 09:04] VITALS: BP 178/78
--- NOTE | 2023-07-31 16:30 | STRESS TEST ---
DATE OF SERVICE: 07/31/2023 RESTING AND POST REGADENOSON TECHNETIUM-99M TETROFOSMIN SPECT CT IMAGING ORDERING PHYSICIAN: Mita Laws APRN. PRIMARY PHYSICIAN: Dr. Kaur. CLINICAL DIAGNOSIS: Coronary artery disease. Baseline images were carried out after injection of 10.78 mCi of technetium-99m tetrofosmin. This was followed by 0.4 mg regadenoson and 31.2 mCi technetium-99m tetrofosmin for stress imaging. The electrocardiogram showed sinus rhythm at baseline. It did not change significantly with regadenoson infusion. The patient tolerated the procedure well. Review of images at rest and following stress does not indicate any distinct perfusion defects consistent with significant myocardial ischemia or infarction. Gated images show normal global left systolic function with normal regional wall motion. Left ventricular ejection fraction is calculated to be 84%. CONCLUSIONS: 1. No evidence of any significant myocardial ischemia or infarction on this study. 2. Normal regional wall motion. 3. Normal to hyperdynamic left ventricular systolic function with a calculated ejection fraction of 84%. Job ID: [id number] DocumentID: [id number] Dictated Date: 07/31/2023 13:46:32 Health Information Technician Date: 07/31/2023 16:28:00 Dictated By: DONTA HICKS MD; RADHA; FACP; FACC;
== END ==
LOC: CARD 07:59
PROVIDERS: ATTEND Nurse Practitioner Family
DX: I25.10 Atherosclerotic heart disease of native coronary artery without angina pectoris (principal)
CPT/HCPCS: 78452; 93017; A9502